=== PATIENT | male | born 1955 | race Caucasian/White ===

== ENCOUNTER 2021-04-11 01:57 | Inpatient (IN) ==
[2021-04-11] MEDS ORDERED: POLYETHYLENE (MIRALAX) 17 GM PACK PO PRN (04:52)
[2021-04-11] MEDS ORDERED: ACETAMINOPHEN 325 MG TAB PO PRN (04:52)
[2021-04-11] MEDS ORDERED: VANCOMYCIN CONSULT ACTIVE PRN (04:56)
--- NOTE | 2021-04-11 05:01 | History & Physical Report ---
Date of Service April 11, 2021 Assessment & Plan (1) Arthritis of knee, left: Plan: 66 yo M w/ pMHx. of gout, HLD, HTN, Anxiety, back pain, BPH, venous insufficiency and s/p left total knee in November with [facility] Left knee concerning for septic prosthetic joint on exam and labs gram positive cocci on OSH blood culture, elevated CRP, elevated WBC images being uploaded - ordered blood cultures - started on Vancomycin and Ceftriaxone - consulted orthopedics for potential surgical management - NPO at midnight - continuing home pain medications that include: Gabapentin, Baclofen - added PRN Tylenol and Oxycodone for pain Bacteremia + blood cultures, will recheck our blood cultures - ECHO ordered - abx. as above - discussed that he may need a prolonged course of IV abx. HTN - continue home BP medication Venous insufficiency lower extremity consistent with venous stasis ulcers - continue home Bumex Depression - continue home medications Back pain - continue home medication Hx. sleep apnea - not on CPAP BPH - continue home medications Gout - continue Allopurinol Code: full Diet: NPO after midnight for possible procedure DVT: SCDs (2) BPH (benign prostatic hyperplasia): (3) Anxiety: (4) Depression: (5) GERD (gastroesophageal reflux disease): (6) Hyperlipidemia: (7) Hypertension: (8) Sleep apnea: (9) Nonobstructive atherosclerosis of coronary artery: Admission and Anticipated Discharge Date Admission Date: April 11, 2021 History of Present Illness Chief Complaint: left knee pain Primary Care Provider: Chalo Anderson Harry Abdi is a 66-year-old male with a past medical history of gout, HLD, HTN, back pain, BPH, venous insufficiency and s/p left total knee in November with [facility] here for left knee pain and swelling. He was a direct admit from [facility]. He has had 2 days of left leg swelling and pain that is 9-10/10 and located behind the knee. The pain is constant in nature and worse with moving. He uses a cane to get around and a walker but has been having d ifficulty lately. Social Hx.: denies tobacco use, 1-2 drinks/week, no recreational drug use Allergies Allergy/AdvReac Type Severity Reaction Status Date / Time No Known Allergies Unverified 12/01/20 05:36 Home Medications Medication Instructions Recorded Confirmed Type allopurinol 300 mg tablet 300 mg PO QAM 10/26/20 04/11/21 History atorvastatin 20 mg tablet 20 mg PO DAILY 10/26/20 04/11/21 History baclofen 10 mg tablet 10 mg PO BID 10/26/20 04/11/21 History bumetanide 0.5 mg tablet 0.5 mg PO BID 10/26/20 04/11/21 History buspirone 30 mg tablet 30 mg PO BID 10/26/20 04/11/21 History duloxetine 60 mg capsule,delayed 60 mg PO BID 10/26/20 04/11/21 History release gabapentin 600 mg tablet,extended 600 mg PO BID 10/26/20 04/11/21 History release 24 hr levocetirizine 5 mg tablet 5 mg PO QPM 10/26/20 04/11/21 History lisinopril 5 mg tablet 5 mg PO QAM 10/26/20 04/11/21 History montelukast 10 mg tablet 10 mg PO DAILY 10/26/20 04/11/21 History pantoprazole 40 mg tablet,delayed 40 mg PO BID 10/26/20 04/11/21 History release (Protonix) primidone 50 mg tablet 50 mg PO DAILY 10/26/20 04/11/21 History propranolol 80 mg tablet 80 mg PO QAM 10/26/20 04/11/21 History tamsulosin 0.4 mg capsule 0.4 mg PO QAM 10/26/20 04/11/21 History topiramate 100 mg tablet 100 mg PO HS 10/26/20 04/11/21 History trazodone 100 mg tablet 100 mg PO HS 10/26/20 04/11/21 History cholecalciferol (vitamin D3) 125 125 mcg PO DAILY 04/11/21 04/11/21 History mcg (5,000 unit) tablet (Vitamin D3) Past Med/Surg History Medical History Anxiety BPH (benign prostatic hyperplasia) Chronic back pain Depression GERD (gastroesophageal reflux disease) Hx of bladder cancer 2018 had chemo in bladder and no problem since Hyperlipidemia Hypertension Nonobstructive atherosclerosis of coronary artery Per review of [facility] records, non-obstructive CAD by 2008 heart cath. Cardiac cath done 05/31/10 at [facility] for NSTEMI with chest pain following a back surgery done at [facility] (POD1). 2010 cath also showed nonobstructive CAD, ACS ruled out, medically managed for risk factor modification. Echo done 06/01/10 showed pre served EF 55-60%. NSTEMI (non-ST elevated myocardial infarction) 2009, POD1 after back surgery, transferred from [facility] to [facility] for cath. Cath nonobstructive. Osteoarthritis PONV (postoperative nausea and vomiting) Sleep apnea no device Surgical History History of arthroscopy of left knee History of cardiac cath [place] 2012, "mild." No stents. History of open reduction and internal fixation (ORIF) procedure right arm History of rotator cuff surgery Hx laparoscopic cholecystectomy Hx of arthroscopy of shoulder Hx of bilateral cataract extraction Hx of colonoscopy Hx of cystoscopy Hx of esophagogastroduodenoscopy Hx of fusion of cervical spine Hx of gastric bypass states gastric sleeve 2012 - lost 60'pema pounds Hx of tonsillectomy Social History Smoking Status: Never smoker Second Hand Exposure: No; Do You Dip or Chew Tobacco: No; Tobacco Cessation Education Requested by Patient: No Hx Alcohol Use: Yes Alcohol type: beer and wine Hx Substance Use: No Preferred Language: Telugu Communication Ability: Effective Data Modeling Architect Required: No Beliefs That Will Affect Care: None Current Living Situation: Family Other Information That Helps Us Care for You: No Feels Safe at Home: Yes Safety Concerns: Feels Safe At This Time Assistive Devices: Cane, Glasses and Walker Review of Systems Review of Systems: Constitutional: denies fevers, chills, nausea, vomiting, diaphoresis, night sweats, weight loss admits fatigue and general weakness Head: denies LOC, headaches, confusion, lightheadedness, vision changes Neurologic: denies slurring of speech, numbness, tingling ENT: denies rhinorrhea, stuffiness, sneezing, sore throat Cardiac: denies chest pain, palpitations, orthopnea admits leg swelling Pulm.: denies cough, shortness of breath Physical Exam Constitutional: WD/WN, vitals as above Eyes: PERRL, conjunctivae normal, anicteric sclerae ENMT: external ear and nose normal, oropharynx normal Neck: normal visual inspection Respiratory: normal respiratory effort, lungs clear to auscultation Cardiovascular: Rate/Rhythm: regular rate and regular rhythm Gastrointestinal (Abdomen): normal bowel sounds, soft, nontender, no hepatosplenomegaly Musculoskeletal: - Left knee with anterior post operative scar from total knee arthroplasty - Swollen, red and tender to palpation - limited ROM due to pain Skin: - lower extremity edema with darkening of skin bilaterally symmetric Neurologic: no focal motor deficits Psychiatric: A+Ox3, euthymic affect Results & Data Results & Data ([facility]) Vital Signs (Past 12 Hours) Vital Signs Temp Pulse Resp BP Pulse Ox 04/11/21 03:39 37.1 C 74 14 138/80 95 CBC Results Results Complete Blood Count Results: RBC 3.73 M/uL (4.7-6.1) L 04/11/21 WBC 13.90 K/uL (4.8-10.8) H 04/11/21 Hgb 11.7 g/dL (14.0-18.0) L 04/11/21 Hct 35.7 % (42-52) L 04/11/21 Plt Count 152 K/uL (130-400) 04/11/21 Chemistry (BMP) Results BMP Results: Sodium 132 mmol/L (136-145) L 04/11/21 Potassium 3.7 mmol/L (3.5-5.1) 04/11/21 Chloride 102 mmol/L (98-107) 04/11/21 BUN 24 mg/dl (7-18) H 04/11/21 Creatinine 0.96 mg/dl (0.6-1.4) 04/11/21 Glucose 103 mg/dl (70-99) H 04/11/21 Code Status & VTE Plan VTE Prophylaxis Plan VTE Prophylaxis will be ordered: Yes Supervising Physician Co-Signing Physician Notes Attending addendum: I have physically seen this patient, have supervised the medical residents activities, and agree with the H&P unless as otherwise noted. Assessment and Plan: Left total knee arthroplasty/question septic joint- Gram-positive cocci on OSH blood culture Empiric vancomycin IV and ceftriaxone IV Orthopedic surgery Dr. Painter is aware of patient N.p.o. after midnight except for essential medications IV fluids Follow blood cultures and sensitivities Order echocardiogram to assess for SBE Hypertension- Hold bumetanide and lisinopril Continue propranolol with hold parameters Depression- Continue home medications Remaining orders and notations as noted Resident Activity Tracking Resident Involvement: Resident Care Provided Care Provided: Adult Hospital Medicine
[2021-04-11] MEDS ORDERED: oxyCODONE HCL IR 5 MG TAB (IMMEDIATE RELEASE) PO PRN (05:23)
[2021-04-11] MEDS ORDERED: SODIUM CHLORIDE 0.9% 1000ML 1,000 ML IV SCH (05:30)
[2021-04-11 05:46] LABS: Hematocrit (blood only) 35.7 % (42-52); Hemoglobin 11.7 g/dL (14.0-18.0); Mean Corpuscular Hemoglobin 31.4 pg (25-34); Mean Corpuscular Hgb Conc 32.8 g/dL (32-36); Mean Corpuscular Volume 95.7 fL (80-100); Mean Platelet Volume 11.1 fL (7.4-10.4); Platelet Count 152 K/uL (130-400); RDW Coefficient of Variation 15.5 % (11.5-14.5); RDW Standard Deviation 53.7 fL (36.4-46.3); Red Blood Count 3.73 M/uL (4.7-6.1)
[2021-04-11] MEDS: cefTRIAXone SODIUM 2,000 MG in DEXTROSE 5% 50 ML IV SCH (06:06)
[2021-04-11 06:08] LABS: Basophils # (auto) 0.02 K/uL (0-0.2); Basophils % (auto) 0.1 %; Eosinophils # (auto) 0.01 K/uL (0-0.5); Eosinophils % (auto) 0.1 %; Immature Granulocytes # (auto) 0.04 K/uL (0.00-0.02); Immature Granulocytes % (auto) 0.3 %; Monocytes # (auto) 1.43 K/uL (0.11-0.59); Monocytes % (auto) 10.3 %; Neutrophils % (auto) 84.2 %
[2021-04-11 06:15] LABS: Est GFR (African American) 95.8 ml/min; Est GFR (Non-African American) 82.6 ml/min; Potassium 3.7 mmol/L (3.5-5.1)
[2021-04-11 06:16] LABS: Albumin Level 3.1 gm/dl (3.4-5.0); BUN Creatinine Ratio 25.1 (10-20); Calcium 9.1 mg/dl (8.5-10.1); Creatinine Clr Calc Pharmacy 105.6 ml/min
[2021-04-11 06:18] LABS: Albumin Globulin Ratio 0.7 (0.9-2); Bilirubin,Total 2.6 mg/dl (0.2-1); Globulin 4.3 gm/dl (2.5-4.0); Total Protein 7.4 gm/dl (6.4-8.2)
[2021-04-11] MEDS ORDERED: VANCOMYCIN HCL 2,500 MG in SODIUM CHLORIDE 0.9% 500 ML IV STA (06:37)
--- NOTE | 2021-04-11 06:47 | Pharmacy Report ---
Pharmacy Vanc AUC Short Note - Date of Service April 11, 2021 - Assessment & Plan Assessment 66 year old M receiving Vancomycin and Ceftriaxone for treatment of possible bone and joint infection versus cellulitis. * Transferred from [facility]. He is s/p L TKA in November 2020. Reports 2 days of left leg swelling and pain located behind the knee. * Unknown if patient was on abx prior to admit. He thinks he was. Random Vancomycin level ordered and undetectable. Reported that cultures from [facility] were growing GPCs in the blood. * Afebrile. Leukocytosis of 13.9k. Plan Vancomycin * Loading Dose: 2500 mg IV x 1 * Maintenance Dose: 1500 mg IV every 12 hours * AUC/SELVIN is the preferred PK/PD target for vancomycin * AUC guided dosing is effective and associated with decreased risk of nephrotoxicity compared to traditional trough targets * AUC/SELVIN goal of 400 to 600 mg/L.hr * Trough level ordered for 04/13/21 prior to 0600 dose to assess AUC/SELVIN Ceftriaxone * Not a pharmacy consult * 2000 mg IV every 24 hours Pharmacy will continue to follow and will adjust dose/frequency as necessary. Thank you.
[2021-04-11] MEDS: BACLOFEN 10 MG TAB PO SCH ×2 (08:36→20:54)
[2021-04-11] MEDS: BUMETANIDE 1 MG TAB PO SCH ×2 (08:36→20:54)
[2021-04-11] MEDS: ATORVASTATIN 20 MG TAB PO SCH (08:36)
[2021-04-11] MEDS: allopurinoL 300 MG TAB PO SCH (08:36)
[2021-04-11] MEDS: MONTELUKAST SODIUM 10 MG TABLET PO SCH (08:37)
[2021-04-11] MEDS: busPIRone 15 MG TAB PO SCH ×2 (08:37→20:54)
[2021-04-11] MEDS: DULoxetine HCL 60 MG CAP PO SCH ×2 (08:37→20:53)
[2021-04-11] MEDS: PRIMIDONE 50 MG TAB PO SCH (08:37)
[2021-04-11] MEDS: PROPRANOLOL HCL 80 MG TAB PO SCH (08:37)
[2021-04-11] MEDS: PANTOprazole 40 MG TAB PO SCH ×2 (08:37→20:54)
[2021-04-11] MEDS: lisinopril 5 MG TAB PO SCH (08:37)
[2021-04-11] MEDS: TAMSULOSIN HCL 0.4 MG CAP PO SCH (08:37)
--- NOTE | 2021-04-11 10:39 | Hospitalist Progress Note ---
Date of Service April 11, 2021 Assessment & Plan (1) Arthritis of knee, left: Plan: Harry Abdi is a 66 yo male with PMHx of gout, HLD, HTN, Anxiety, back pain, BPH, venous insufficiency and s/p left total knee in November 2020 with [facility], who was a direct admission from [facility] on 04/11 for concern of septic arthritis. Gram Positive Bacteremia due to Possible Septic Arthritis S/s septic arthritis although without arthrocentesis as of yet, WBC/CRP/ESR elevated, OSH blood cx positive for GPC in clusters (2/2 samples). Received Ancef IV x1 in OSH. - OSH images sent via disc - CT knee showing joint effusion - Ortho consulted (Dr. Painter, who performed left TKA) - appreciate recs - arthrocentesis done today with 47,970 WBC in yellow synovial fluid, gram stain/cx pending - NPO at midnight for possible I&D with poly exchange tomorrow - repeat blood cultures taken on admission - pending - TTE with EF 55-60% and mild MR/TR but no signs of vegetations/endocarditis - started on Vanco/Ceftriaxone upon arrival; will continue both for now - will call [facility] tomorrow to check on speciation/sensitivities and will adjust abx as necessary - continuing home pain medications that include: Gabapentin, Baclofen - continue PRN Tylenol and Oxycodone Direct Hyperbilirubinemia TBili 2.6 and DBili 1.0 but liver enzymes unremarkable. - RUQ US with hepatomegaly and findings c/w cirrhosis. Hepatitis panel ordered - pending - repeat CMP in the AM - will need to eval risks (both social hx and metabolic) and have close outpatient follow up HTN - continue home BP meds Venous insufficiency - continue home Bumex Depression - continue home meds Back pain - continue home meds HUMBERTO - not on home CPAP - consideration of CPAP, will defer to PCP BPH - continue home meds Gout - continue Allopurinol Code: FULL CODE FEN/GI: NPO at midnight for possible I&D DVT ppx: SCDs Dispo: med/surg (2) BPH (benign prostatic hyperplasia): (3) Anxiety: (4) Depression: (5) GERD (gastroesophageal reflux disease): (6) Hyperlipidemia: (7) Hypertension: (8) Sleep apnea: (9) Nonobstructive atherosclerosis of coronary artery: Admission and Anticipated Discharge Date Admission Date: April 11, 2021 Supervising Physician Co-Signing Physician Notes I personally examined the patient and verified all ludwig points of history and exam, discussed case, and agree with decision making with Dr Bryant Discussed findings. No new complaints. Patient asked questions about joint inflammation. I answered to the best my ability. Tried outlined overall plan of care with patient. Vitals noted, in general he is awake and alert pleasant no distress. HEENT normocephalic atraumatic mucous membranes moist. Breathing unlabored no accessory muscle use good effort. Skin shows no rashes no pallor or icterus. No focal neuro deficits. Gram-positive bacteremia/septic jointcontinue antibiotics. Anticipate joint washout. Secondary bacteremia work-up to rule out endocarditis etc. underway. Strongly consider infectious disease consult if questions about TONYA, etc. Continue supportive care. Probable cirrhosiseval risks, secondary risk reduction. Follow. Subjective No acute events since being admitted early this morning. Reports acute onset of left knee swelling and tenderness 4 days ago. Pain has worsened since then, the knee has become warm and he started to feel generally ill with subjective fever/chills over the last 2 days. Denies skin redness, cuts/lacerations, or discharge from knee. Reports that he was given an antibiotic at [facility] but no arthrocentesis was done. He reports that pain is controlled with PRN antibiotics and he has no other complaints currently. Review of Systems Review of Systems: All systems reviewed & are unremarkable except as noted in Subjective Physical Exam Physical Exam: General: A&Ox3. NAD. Cooperative. HEENT: Atraumatic, normocephalic. Pulm: CTAB A&P. -wheezes, -rales, -rhonchi. Symmetrical chest rise. No increase work of breathing. No respiratory distress. Cardiac: RRR, -mrg. Radial pulses intact and symmetrical. Abdominal: soft, non-tender, non-distended, BS x 4 Left knee: generally edematous and larger than the right knee, without erythema or visible cuts/lacerations/discharge, with minimal tenderness on palpation of patella or joint lines. However it is notably warm. Results & Data Results & Data ([facility]) Vital Signs (Past 12 Hours) Vital Signs Temp Pulse Resp BP Pulse Ox 04/11/21 07:31 37 C 80 18 138/79 93 04/11/21 03:39 37.1 C 74 14 138/80 95 Resident Activity Tracking Resident Involvement: Resident Care Provided Care Provided: Adult Hospital Medicine
--- NOTE | 2021-04-11 11:26 | History & Physical Report ---
Date of Service April 11, 2021 Assessment & Plan (1) Effusion, left knee: Plan: Continue IV vancomycin and ceftriaxone. Under sterile technique, the left knee was aspirated with a 60 cc syringe and an 18-gauge needle. 60 cc of cloudy yellow fluid was aspirated from the knee. The aspirate was sent for Gram stain, anaerobic and aerobic cultures, cell count. I discussed the findings with the patient and also discussed surgical I&D with poly exchange. Dr. Painter will discuss the case with Dr. Villatoro, patient's surgeon for the original total knee arthroplasty. We will make him n.p.o. after midnight for possible OR tomorrow. (2) History of knee replacement procedure of left knee: (3) Infected prosthetic knee joint: Admission and Anticipated Discharge Date Admission Date: April 11, 2021 History of Present Illness Chief Complaint: Severe left knee pain Primary Care Provider: Chalo Anderson This is a patient who had left total knee arthroplasty done in November of this year. He had progressed well postoperatively. However, 3 days ago, he started having severe pain in the left knee. It difficulties with ambulation. He came to the emergency room last night and he was admitted for evaluation of the knee. States the knee has been warm painful with any motion or attempted ambulation. Allergies Allergy/AdvReac Type Severity Reaction Status Date / Time No Known Allergies Unverified 12/01/20 05:36 Home Medications Medication Instructions Recorded Confirmed Type allopurinol 300 mg tablet 300 mg PO QAM 10/26/20 04/11/21 History atorvastatin 20 mg tablet 20 mg PO DAILY 10/26/20 04/11/21 History baclofen 10 mg tablet 10 mg PO BID 10/26/20 04/11/21 History bumetanide 0.5 mg tablet 0.5 mg PO BID 10/26/20 04/11/21 History buspirone 30 mg tablet 30 mg PO BID 10/26/20 04/11/21 History duloxetine 60 mg capsule,delayed 60 mg PO BID 10/26/20 04/11/21 History release gabapentin 600 mg tablet,extended 600 mg PO BID 10/26/20 04/11/21 History release 24 hr levocetirizine 5 mg tablet 5 mg PO QPM 10/26/20 04/11/21 History lisinopril 5 mg tablet 5 mg PO QAM 10/26/20 04/11/21 History montelukast 10 mg tablet 10 mg PO DAILY 10/26/20 04/11/21 History pantoprazole 40 mg tablet,delayed 40 mg PO BID 10/26/20 04/11/21 History release (Protonix) primidone 50 mg tablet 50 mg PO DAILY 10/26/20 04/11/21 History propranolol 80 mg tablet 80 mg PO QAM 10/26/20 04/11/21 History tamsulosin 0.4 mg capsule 0.4 mg PO QAM 10/26/20 04/11/21 History topiramate 100 mg tablet 100 mg PO HS 10/26/20 04/11/21 History trazodone 100 mg tablet 100 mg PO HS 10/26/20 04/11/21 History cholecalciferol (vitamin D3) 125 125 mcg PO DAILY 04/11/21 04/11/21 History mcg (5,000 unit) tablet (Vitamin D3) Past Med/Surg History Medical History Anxiety BPH (benign prostatic hyperplasia) Chronic back pain Depression GERD (gastroesophageal reflux disease) Hx of bladder cancer 2018 had chemo in bladder and no problem since Hyperlipidemia Hypertension Nonobstructive atherosclerosis of coronary artery Per review of [facility] records, non-obstructive CAD by 2008 heart cath. Cardiac cath done 05/31/10 at [facility] for NSTEMI with chest pain following a back surgery done at [facility] (POD1). 2009 cath also showed nonobstructive CAD, ACS ruled out, medically managed for risk factor modification. Echo done 06/01/10 showed preserved EF 55-60%. NSTEMI (non-ST elevated myocardial infarction) 2009, POD1 after back surgery, transferred from [facility] to [facility] for cath. Cath nonobstructive. Osteoarthritis PONV (postoperative nausea and vomiting) Sleep apnea no device Surgical History History of arthroscopy of left knee History of cardiac cath [place] 2012, "mild." No stents. History of open reduction and internal fixation (ORIF) procedure right arm History of rotator cuff surgery Hx laparoscopic cholecystectomy Hx of arthroscopy of shoulder Hx of bilateral cataract extraction Hx of colonoscopy Hx of cystoscopy Hx of esophagogastroduodenoscopy Hx of fusion of cervical spine Hx of gastric bypass states gastric sleeve 2013 - lost 60'pema pounds Hx of tonsillectomy Social History Smoking Status: Never smoker Second Hand Exposure: No; Do You Dip or Chew Tobacco: No; Tobacco Cessation Education Requested by Patient: No Hx Alcohol Use: Yes Alcohol type: beer and wine Hx Substance Use: No Preferred Language: Indonesian Communication Ability: Effective Brinell Tester Required: No Beliefs That Will Affect Care: None Current Living Situation: Family Other Information That Helps Us Care for You: No Feels Safe at Home: Yes Safety Concerns: Feels Safe At This Time Assistive Devices: Cane, Glasses and Walker Physical Exam Constitutional: WD/WN, vitals as above + acute distress (Mildly acute distress secondary to left knee pain) ENMT: external ear and nose normal, oropharynx normal Neck: trachea midline Respiratory: normal respiratory effort, lungs clear to auscultation Cardiovascular: Rate/Rhythm: regular rate and regular rhythm Gastrointestinal (Abdomen): normal bowel sounds, soft, nontender, no hepatosplenomegaly Musculoskeletal: Knee: + effusion (Left knee: Right to severe), + surgical incision (Well-healed anterior left knee incision), + limited ROM of knee (Left knee secondary to pain) and + joint line tenderness (Moderate to severe warmth left knee); no skin erythema, no ecchymosis, no valgus alignment and no varus alignment Skin: no rashes, warm and dry + crusts (Lateral lower extremities with venous insufficiency skin changes) Neurologic: normal touch/pain/proprioception Psychiatric: A+Ox3, euthymic affect Speech: normal rate/rhythm/volume of speech Results & Data Results & Data ([facility]) Vital Signs (Past 12 Hours) Vital Signs Temp Pulse Resp BP Pulse Ox 04/11/21 07:31 37 C 80 18 138/79 93 04/11/21 03:39 37.1 C 74 14 138/80 95 Laboratory Results Laboratory Tests 04/11/21 04/11/21 05:28 05:28 WBC 13.90 H Hgb 11.7 L Hct 35.7 L Neut # (Auto) 11.70 H Sodium 132 L BUN 24 H Creatinine 0.96 Code Status & VTE Plan VTE Prophylaxis Plan VTE Prophylaxis will be ordered: Yes
[2021-04-11 12:01] LABS: Appearance Synovial Fluid CLOUDY; Color Synovial Fluid YELLOW; Mononuclear WBC Synovial 11.3 %; Polynuclear WBC Synovial 88.7 %; RBC Synovial Fluid (A) 10000 /uL; Source Synovial Fluid KNEE; WBC Synovial Fluid (A) 47970 /ul (0-200)
--- NOTE | 2021-04-11 12:41 | XCELERA ---
[id number]
--- NOTE | 2021-04-11 15:08 | Ultrasound Report ---
US liver CLINICAL HISTORY: 66 years-old Male presenting with direct hyperbilirunemia. TECHNIQUE: Real-time grayscale ultrasound imaging of the upper abdomen was performed for a focused ev aluation at the site of clinical concern. COMPARISON: None. FINDINGS: Liver is slightly enlarged measuring 18.8 cm in length, shows normal parenchymal echogenicity and sli ghtly lobulated contour which might be seen in liver cirrhosis. No definite focal liver lesions or in trahepatic biliary dilatation is seen. Gallbladder is surgically absent. Common bile duct is measuring 0.4 cm in diameter. Visualized portion of the pancreas shows no evidence of focal lesions. Pancreatic tail is obscured by overlying bowel gas. Visualized portion of the right kidney shows no evidence of hydronephrosis. IMPRESSION: 1. Hepatomegaly. Possible liver cirrhosis. ACT 112: Negative or not required by law. Electronically signed by: Elvira Gifford DO 04/11/2021 3:07 PM
--- NOTE | 2021-04-11 17:54 | Billing Data ---
Date of Service April 11, 2021 Coding Level of Care Code 21337 Subseq Hosp Care Lvl 2
[2021-04-11] MEDS: VANCOMYCIN HCL 1,500 MG in SODIUM CHLORIDE 0.9% 500 ML IV SCH (18:14)
--- NOTE | 2021-04-11 19:39 | Billing Data ---
Date of Service April 11, 2021 Coding Level of Care Code 65150 Initial Inpt Care Lvl 3
[2021-04-11] MEDS: traZODone HCL 100 MG TAB PO SCH (20:53)
[2021-04-11] MEDS: TOPIRAMATE 100 MG TAB PO SCH (20:54)
[2021-04-12 05:21] LABS: Hematocrit (blood only) 32.7 % (42-52); Hemoglobin 10.9 g/dL (14.0-18.0); Mean Corpuscular Hemoglobin 31.3 pg (25-34); Mean Corpuscular Hgb Conc 33.3 g/dL (32-36); Mean Platelet Volume 10.6 fL (7.4-10.4); Platelet Count 156 K/uL (130-400); RDW Coefficient of Variation 15.3 % (11.5-14.5); RDW Standard Deviation 51.9 fL (36.4-46.3); Red Blood Count 3.48 M/uL (4.7-6.1); White Blood Count 11.08 K/uL (4.8-10.8)
[2021-04-12] MEDS: cefTRIAXone SODIUM 2,000 MG in DEXTROSE 5% 50 ML IV SCH (05:25)
[2021-04-12] MEDS: VANCOMYCIN HCL 1,500 MG in SODIUM CHLORIDE 0.9% 500 ML IV SCH (05:55)
[2021-04-12 05:57] LABS: Albumin Level 2.7 gm/dl (3.4-5.0); Bilirubin Direct 0.7 mg/dl (0-0.2); Calcium 8.5 mg/dl (8.5-10.1); Creatinine Clr Calc Pharmacy 119.3 ml/min; Est GFR (Non-African American) 91.4 ml/min; Magnesium 1.9 mg/dl (1.8-2.4); Potassium 3.2 mmol/L (3.5-5.1)
[2021-04-12 06:03] LABS: Bilirubin,Total 1.6 mg/dl (0.2-1); Phosphorus 2.9 mg/dl (2.5-4.9); Total Protein 6.8 gm/dl (6.4-8.2)
[2021-04-12 06:11] LABS: Basophils # (auto) 0.02 K/uL (0-0.2); Basophils % (auto) 0.2 %; Eosinophils # (auto) 0.02 K/uL (0-0.5); Eosinophils % (auto) 0.2 %; Immature Granulocytes # (auto) 0.02 K/uL (0.00-0.02); Immature Granulocytes % (auto) 0.2 %; Lymphocytes # (auto) 0.94 K/uL (1.2-3.4); Lymphocytes % (auto) 8.5 %; Monocytes # (auto) 1.58 K/uL (0.11-0.59); Monocytes % (auto) 14.3 %; Neutrophils % (auto) 76.6 %; RBC Morphology Unremarkable
--- NOTE | 2021-04-12 07:14 | Anesthesiology Consultation ---
Date of Service April 12, 2021 Assessment & Plan (1) Encounter for pre-operative examination: Chart Review Chart Review: Acceptable Risk for Surgery and Patient NOT seen in Pre Admission Testing Patient is hypokalemic, receiving KCL riders. Will order preop covid screen. Consults Requested none History Surgery Operation Date: 04/12/21 07:00 Proposed Procedures p Left Knee Incision and Drainage - Anand Villatoro DO s Poly Exchange - Anand Villatoro DO Height/Weight Height: 6 ft 2 in Weight: 120 kg Allergies Allergy/AdvReac Type Severity Reaction Status Date / Time No Known Allergies Unverified 12/01/20 05:36 Medications Home Medications Medication Instructions Recorded Confirmed Last Taken allopurinol 300 mg tablet 300 mg PO QAM 10/26/20 04/11/21 1 Day Ago ~04/10/21 atorvastatin 20 mg tablet 20 mg PO DAILY 10/26/20 04/11/21 1 Day Ago ~04/10/21 baclofen 10 mg tablet 10 mg PO BID 10/26/20 04/11/21 1 Day Ago ~04/10/21 bumetanide 0.5 mg tablet 0.5 mg PO BID 10/26/20 04/11/21 1 Day Ago ~04/10/21 buspirone 30 mg tablet 30 mg PO BID 10/26/20 04/11/21 1 Day Ago ~04/10/21 duloxetine 60 mg capsule,delayed 60 mg PO BID 10/26/20 04/11/21 2 Days Ago release ~04/09/21 gabapentin 600 mg tablet,extended 600 mg PO BID 10/26/20 04/11/21 1 Day Ago release 24 hr ~04/10/21 levocetirizine 5 mg tablet 5 mg PO QPM 10/26/20 04/11/21 2 Days Ago ~04/09/21 lisinopril 5 mg tablet 5 mg PO QAM 10/26/20 04/11/21 1 Day Ago ~04/10/21 montelukast 10 mg tablet 10 mg PO DAILY 10/26/20 04/11/21 1 Day Ago ~04/10/21 pantoprazole 40 mg tablet,delayed 40 mg PO BID 10/26/20 04/11/21 1 Day Ago release (Protonix) ~04/10/21 primidone 50 mg tablet 50 mg PO DAILY 10/26/20 04/11/21 1 Day Ago ~04/10/21 propranolol 80 mg tablet 80 mg PO QAM 10/26/20 04/11/21 1 Day Ago ~04/10/21 tamsulosin 0.4 mg capsule 0.4 mg PO QAM 10/26/20 04/11/21 1 Day Ago ~04/10/21 topiramate 100 mg tablet 100 mg PO HS 10/26/20 04/11/21 2 Days Ago ~04/09/21 trazodone 100 mg tablet 100 mg PO HS 10/26/20 04/11/21 2 Days Ago ~04/09/21 cholecalciferol (vitamin D3) 125 125 mcg PO DAILY 04/11/21 04/11/21 1 Day Ago mcg (5,000 unit) tablet (Vitamin ~04/10/21 D3) Active Medications Generic Name Dose Route Start Last Admin Trade Name Freq PRN Reason Stop Dose Admin Allopurinol 300 mg 04/11/21 09:00 04/11/21 08:36 Allopurinol 300 Mg Tab PO 05/11/21 08:59 300 mg QAM VÍCTOR Administration Atorvastatin Calcium 20 mg 04/11/21 09:00 04/11/21 08:36 Atorvastatin 20 Mg Tab PO 05/11/21 08:59 20 mg DAILY VÍCTOR Administration Baclofen 10 mg 04/11/21 09:00 04/11/21 20:54 Baclofen 10 Mg Tab PO 05/11/21 08:59 10 mg BID VÍCTOR Administration Bumetanide 0.5 mg 04/11/21 09:00 04/11/21 20:54 Bumetanide 1 Mg Tab PO 05/11/21 08:59 0.5 mg BID VÍCTOR Administration Buspirone HCl 30 mg 04/11/21 09:00 04/11/21 20:54 Buspirone 15 Mg Tab PO 05/11/21 08:59 30 mg BID VÍCTOR Administration Duloxetine HCl 60 mg 04/11/21 09:00 04/11/21 20:53 Duloxetine Hcl 60 Mg Cap PO 05/11/21 08:59 60 mg BID VÍCTOR Administration Vancomycin HCl 1,500 mg/ 530 mls @ 200 mls/hr 04/11/21 18:00 04/12/21 05:55 Sodium Chloride IV 05/23/21 17:59 200 mls/hr Q12H VÍCTOR Administration Protocol Ceftriaxone Sodium 2,000 mg/ 70 mls @ 140 mls/hr 04/11/21 06:00 04/12/21 05:56 Dextrose IV 04/25/21 05:59 Infused Q24H VÍCTOR Infusion Protocol Lisinopril 5 mg 04/11/21 09:00 04/11/21 08:37 Lisinopril 5 Mg Tab PO 05/11/21 08:59 5 mg QAM VÍCTOR Administration Montelukast Sodium 10 mg 04/11/21 09:00 04/11/21 08:37 Montelukast Sodium 10 Mg Tablet PO 05/11/21 08:59 10 mg DAILY VÍCTOR Administration Pantoprazole Sodium 40 mg 04/11/21 09:00 04/11/21 20:54 Pantoprazole 40 Mg Tab PO 05/11/21 08:59 40 mg BID VÍCTOR Administration Primidone 50 mg 04/11/21 09:00 04/11/21 08:37 Primidone 50 Mg Tab PO 05/11/21 08:59 50 mg DAILY VÍCTOR Administration Propranolol HCl 80 mg 04/11/21 09:00 04/11/21 08:37 Propranolol Hcl 80 Mg Tab PO 05/11/21 08:59 80 mg QAM VÍCTOR Administration Tamsulosin HCl 0.4 mg 04/11/21 09:00 04/11/21 08:37 Tamsulosin Hcl 0.4 Mg Cap PO 05/11/21 08:59 0.4 mg QAM VÍCTOR Administration Topiramate 100 mg 04/11/21 21:00 04/11/21 20:54 Topiramate 100 Mg Tab PO 05/11/21 20:59 100 mg HS VÍCTOR Administration Trazodone HCl 100 mg 04/11/21 21:00 04/11/21 20:53 Trazodone Hcl 100 Mg Tab PO 05/11/21 20:59 100 mg HS VÍCTOR Administration Past Medical History Medical History Anxiety BPH (benign prostatic hyperplasia) Chronic back pain Depression GERD (gastroesophageal reflux disease) Hx of bladder cancer 2018 had chemo in bladder and no problem since Hyperlipidemia Hypertension Nonobstructive atherosclerosis of coronary artery Per review of [facility] records, non-obstructive CAD by 2009 heart cath. Cardiac cath done 05/31/10 at [facility] for NSTEMI with chest pain following a back surgery done at [facility] (POD1). 2010 cath also showed nonobstructive CAD, ACS ruled out, medically managed for risk factor modification. Echo done 06/01/10 showed preserved EF 55-60%. NSTEMI (non-ST elevated myocardial infarction) 2009, POD1 after back surgery, transferred from [facility] to [facility] for cath. Cath nonobstructive. Osteoarthritis PONV (postoperative nausea and vomiting) Sleep apnea no device Past Surgical History Surgical History History of arthroscopy of left knee History of cardiac cath [place] 2012, "mild." No stents. History of open reduction and internal fixation (ORIF) procedure right arm History of rotator cuff surgery Hx laparoscopic cholecystectomy Hx of arthroscopy of shoulder Hx of bilateral cataract extraction Hx of colonoscopy Hx of cystoscopy Hx of esophagogastroduodenoscopy Hx of fusion of cervical spine Hx of gastric bypass states gastric sleeve 2012 - lost 60'pema pounds Hx of tonsillectomy Left TKA 12/01/20: SAB with adductor and IPACK blocks and sedation (OUTPATIENT JOINT). Social History Smoking Status: Never smoker Do You Dip or Chew Tobacco: No Hx Alcohol Use: Yes Alcohol type: beer and wine alcohol intake frequency: a few times a month Hx Substance Use: No Physical Exam Vital Signs Last Vital Signs Temp 36.6 C 04/11/21 22:24 Pulse 66 04/11/21 22:24 Resp 16 04/11/21 22:24 BP 121/78 04/11/21 22:24 Pulse Ox 95 04/11/21 22:24 Testing Laboratory Results 04/12/21 05:15 04/12/21 05:15 04/11/21 05:36 Aerobic Blood Culture - Preliminary Blood Gram positive cocci clusters Anaerobic Blood Culture - Preliminary Gram positive cocci clusters 04/11/21 05:28 Aerobic Blood Culture - Preliminary Blood Gram positive cocci clusters Anaerobic Blood Culture - Preliminary Gram positive cocci clusters 04/11/21 11:11 Gram Stain - Final Joint Fluid,Knee Echocardiogram Date: 04/11/21 EF: 55-60% Echo done 04/11/21 for bacteremia LV systolic function is normal No RWMA Borderline LVH Mild MR and TR. Other Testing Electrocardiogram Date: 04/27/20 Findings: + NSR @ (65bpm) Chest X-Ray Date: 11/02/20 Findings: + NAD FINDINGS: No pneumothorax. No pleural effusions. The heart is top normal in size. Mild diffuse interstitial thickening which is likely chronic. Symmetric nodular densities within the lung bases favor nipple shadows. No new focal lung consolidations to suggest pneumonia. No evidence for pulmonary edema. Cervical spinal fusion hardware is noted. Partially visualized lumbar spinal fusion hardware.
--- NOTE | 2021-04-12 08:10 | Hospitalist Progress Note ---
Date of Service April 12, 2021 Assessment & Plan (1) Arthritis of knee, left: Plan: Harry Abdi is a 66 yo male with PMHx of gout, HLD, HTN, Anxiety, back pain, BPH, venous insufficiency and s/p left total knee in November 2020 with [facility], who was a direct admission from [facility] on 04/11 for concern of septic arthritis. Gram Positive Bacteremia due to Possible Septic Arthritis S/s septic arthritis although without arthrocentesis as of yet, WBC/CRP/ESR elevated, OSH blood cx positive for GPC in clusters (2/2 samples). Received Ancef IV x1 in OSH. - OSH images sent via disc - CT knee showing joint effusion - TTE with EF 55-60% and mild MR/TR but no signs of vegetations/endocarditis -Per phone conversation with [facility] lab, patient has 2 blood cultures preliminarily growing MSSA with sensitivities pending they will fax over results once available - repeat blood cultures taken on admission here growing MSSA, sensitivities pending - Ortho consulted (Dr. Painter, who performed left TKA) - appreciate recs - arthrocentesis done 04/11 with 47,970 WBC in yellow synovial fluid Gram stain with few gram-positive cocci, culture preliminary showing Staphylococcus species with sensitivities to follow - I&D and poly exchange performed today and left knee specimen sent with gram stain/Cx pending - Continue ceftriaxone 2 g IV daily, will stop vancomycin today as all blood cultures growing MSSA and thus unlikely that knee cultures will show MRSA - continuing home pain medications that include: Gabapentin, Baclofen - continue PRN Tylenol and Oxycodone Direct Hyperbilirubinemia T. Bili and D. Bili downtrending today, liver enzymes remain normal - RUQ US with Hepatomegaly. Possible liver cirrhosis. - Hepatitis panel negative for Hep C, HBsAg negative, Hep B core IgM Ab pending, Hep A IgM Ab pending - repeat CMP in the AM HTN - continue home BP meds Venous insufficiency - continue home Bumex Depression - continue home meds Back pain - continue home meds HUMBERTO - not on home CPAP - consideration of CPAP, will defer to PCP BPH - continue home meds Gout - continue Allopurinol Code: FULL CODE FEN/GI: NPO at midnight for possible I&D DVT ppx: SCDs Dispo: med/surg (2) BPH (benign prostatic hyperplasia): (3) Anxiety: (4) Depression: (5) GERD (gastroesophageal reflux disease): (6) Hyperlipidemia: (7) Hypertension: (8) Sleep apnea: (9) Nonobstructive atherosclerosis of coronary artery: Admission and Anticipated Discharge Date Admission Date: April 11, 2021 Supervising Physician Co-Signing Physician Notes Resident Physician Supervision Note: I independently interviewed and examined the patient and verified the ludwig hi story and physical, reviewed labs and image studies and agree with resident Dr. Lerner findings and care plan. Subjective No acute events overnight. Patient reported feeling overall well this AM. He was updated with plan for I&D. No other complaints or concerns. Review of Systems Review of Systems: Denies CP, palp, SOB, cough, n/v, abd pain, diarrhea, fever, chills. Physical Exam Physical Exam: General: A&Ox3. NAD. Cooperative. HEENT: Atraumatic, normocephalic. Pulm: CTAB A&P. -wheezes, -rales, -rhonchi. Symmetrical chest rise. No increase work of breathing. No respiratory distress. Cardiac: RRR, -mrg. Radial pulses intact and symmetrical. Abdominal: soft, non-tender, non-distended, BS x 4 Left knee: generally edematous and larger than the right knee, without erythema or visible cuts/lacerations/discharge, with minimal tenderness on palpation of patella or joint line. Warm to touch. Results & Data Results & Data ([facility]) Vital Signs (Past 12 Hours) Vital Signs Temp Pulse Resp BP Pulse Ox 04/12/21 07:30 36.8 C 69 16 120/75 96 04/11/21 22:24 36.6 C 66 16 121/78 95 Resident Activity Tracking Resident Involvement: Resident Care Provided Care Provided: Adult Hospital Medicine
--- NOTE | 2021-04-12 08:20 | Orthopedic Progress Note ---
Date of Service April 12, 2021 Assessment & Plan (1) Infected prosthetic knee joint: Admission and Anticipated Discharge Date Admission Date: April 11, 2021 Results & Data ([facility]) Vital Signs (Past 12 Hours) Vital Signs Temp Pulse Resp BP Pulse Ox 04/12/21 07:30 36.8 C 69 16 120/75 96 04/11/21 22:24 36.6 C 66 16 121/78 95
--- NOTE | 2021-04-12 08:27 | Orthopedic Progress Note ---
Date of Service April 12, 2021 Assessment & Plan (1) Infected prosthetic knee joint: Plan: Infected left TKA. Left knee aspiration showing gram-positive cocci. Positive blood cultures. Case discussed with Dr. Villatoro. Planning for open irrigation and debridement and polyethylene bearing change. Possible use of stimulan antibiotic beads. I discussed this with the patient. All questions answered to the best of my ability. Plan for OR today. Admission and Anticipated Discharge Date Admission Date: April 11, 2021 Subjective Hospital day 1 Patient sleeping upon entering the room. Easily awoken. States he is still not feeling well overall and that his knee is still bothering him. No other complaints at this time. Denies shortness of breath, chest pain, lightheadedness. Discussed with patient about plans for surgery today. Physical Exam Physical Exam: Left knee has a well-healed incision noted from previous surgery. The knee does have an effusion and is hot to the touch compared to the right. Discomfort with range of motion. Calves are soft nontender. Neurovascular is intact. Toes are mobile. Results & Data ([facility]) Vital Signs (Past 12 Hours) Vital Signs Temp Pulse Resp BP Pulse Ox 04/12/21 07:30 36.8 C 69 16 120/75 96 04/11/21 22:24 36.6 C 66 16 121/78 95
[2021-04-12] MEDS: POTASSIUM CHLORIDE / WTR 10 MEQ/100 ML PLCT IV SCH ×4 (08:42→12:35)
[2021-04-12 09:11] LABS: Hepatitis B Surf Ag Rflx Conf Neg (Neg)
[2021-04-12] MEDS: lisinopril 5 MG TAB PO SCH (09:26)
[2021-04-12] MEDS: PROPRANOLOL HCL 80 MG TAB PO SCH (09:26)
[2021-04-12 09:39] LABS: Hepatitis C IgG 13Yrs+Old_Rflx Neg (Neg)
[2021-04-12] MEDS: PRIMIDONE 50 MG TAB PO SCH (09:41)
[2021-04-12] MEDS: BUMETANIDE 1 MG TAB PO SCH ×2 (09:53→21:22)
[2021-04-12] MEDS: ATORVASTATIN 20 MG TAB PO SCH (09:53)
[2021-04-12] MEDS: BACLOFEN 10 MG TAB PO SCH ×2 (09:53→21:22)
[2021-04-12] MEDS: allopurinoL 300 MG TAB PO SCH (09:53)
[2021-04-12] MEDS: DULoxetine HCL 60 MG CAP PO SCH ×2 (09:54→21:23)
[2021-04-12] MEDS: TAMSULOSIN HCL 0.4 MG CAP PO SCH (09:54)
[2021-04-12] MEDS: PANTOprazole 40 MG TAB PO SCH ×2 (09:54→21:23)
[2021-04-12] MEDS: MONTELUKAST SODIUM 10 MG TABLET PO SCH (09:54)
[2021-04-12] MEDS: GABAPENTIN 300 MG CAP PO SCH ×3 (09:54→21:23)
[2021-04-12] MEDS: busPIRone 15 MG TAB PO SCH ×2 (09:54→21:22)
[2021-04-12] MEDS ORDERED: ONDANSETRON INJ 2 MG/ML 2 ML VIAL ONE (11:21)
[2021-04-12] MEDS ORDERED: DEXAMETHASONE SOD INJ 4 MG/ML VIAL ONE (11:21)
[2021-04-12] MEDS ORDERED: PROPOFOL IV EMULSION 10 MG/ML 20 ML VIAL IV ONE (11:21)
[2021-04-12] MEDS ORDERED: fentaNYL citrate 100 MCG/2 ML VIAL ONE ×2 (11:21→12:45)
[2021-04-12] MEDS ORDERED: LIDOCAINE 2% 2 ML VIAL/AMP(20MG/ML) INFIL ONE (11:21)
[2021-04-12] MEDS ORDERED: MIDAZOLAM HCL 1 MG/ML 2ML VIAL ONE (11:22)
--- NOTE | 2021-04-12 11:55 | History & Physical Bridge Note ---
Date of Service April 12, 2021 History & Physical Bridge Note I have examined the patient, reviewed the History & Physical and in the interval since the performance of the History & Physical I have noted the following changes of clinical significance: no changes noted
[2021-04-12] MEDS ORDERED: GENTAMICIN SULFATE 40 MG/ML 2 ML VIAL ONE (11:58)
[2021-04-12] MEDS ORDERED: VANCOMYCIN HCL 1000MG/20ML VIAL ONE (11:58)
[2021-04-12] MEDS ORDERED: LACTATED RINGER'S 1,000 ML IV SCH (12:15)
[2021-04-12] MEDS ORDERED: ePHEDrine sulfate 50 MG/ML AMP IV PRN (12:16)
[2021-04-12] MEDS ORDERED: ATROPINE SULFATE 0.1 MG/ML 10ML SYR IV PRN (12:16)
[2021-04-12] MEDS ORDERED: LABETALOL HCL IV 5 MG/ML 20ML IV PRN (12:16)
[2021-04-12] MEDS ORDERED: ONDANSETRON INJ 2 MG/ML 2 ML VIAL IV PRN ×2 (12:16→15:38)
[2021-04-12] MEDS ORDERED: NALOXONE HCL 0.4 MG/1 ML VIAL/CARP IV PRN (12:16)
[2021-04-12] MEDS ORDERED: PROMETHAZINE HCL 12.5 MG in SODIUM CHLORIDE 0.9% 50 ML IV PRN (12:16)
[2021-04-12] MEDS ORDERED: fentaNYL citrate 100 MCG/2 ML VIAL IV PRN (12:16)
[2021-04-12] MEDS ORDERED: FLUMAZENIL 0.1 MG/1 ML 10 ML VIAL IV PRN (12:16)
[2021-04-12] MEDS ORDERED: KETAMINE 50 MG/5 ML SYRINGE ONE (12:29)
[2021-04-12] MEDS ORDERED: ACETAMINOPHEN 1000 MG/100 ML IV IV ONE (13:03)
--- NOTE | 2021-04-12 13:37 | Operative Report ---
Post Operative Report Pre & Post Diagnosis Operation Date: 04/12/21 07:00 Pre-Op Diagnosis: SEPTIC ARTHRITIS Post-Op Diagnosis: SEPTIC ARTHRITIS left knee status post total knee arthroplasty I identified the patient and participated in the time-out.: Yes Procedure Operation Date: 04/12/21 07:00 Actual Procedures p Left Knee Incision and Drainage(Left) - DO maximus Henson Poly Exchange(Left) utilizing size 10 polymedial constrained- Anand Villatoro DO Surgeon Anand Villatoro DO Manager Quality Brayan BILLINGSLEY Estimated Blood Loss 10 Findings Consistent with Post-Op Diagnosis Patient presents after having undergone total knee arthroplasty left knee in November was seen in the office 2 weeks ago was doing remarkably well was pain-free no effusion last developed the sudden onset of swelling and pain in his knee with was seen in the emergency room had positive blood cultures consistent with staph large gram-positive cocci swollen knee that was aspirated yesterday seropurulent material which developed since denies any other particular history of pain or other injury or trauma to his knee he did have a fall early on postoperatively and had abrasion involving his right knee his left knee was otherwise unremarkable examination in the office no sign of anything infectious or otherwise Specimens Knee joint culture tissue culture synovium Drains Medium bore Hemovac Anesthesia Type General Complications none Disposition Accompanied Patient To Recovery: No Disposition: Recovery Room Indications Patient presents with seropurulent aspirate from the knee less than yesterday with positive blood cultures were consistent with gram-positive cocci with a sudden onset of pain and swelling developing on of last week Description of Procedure Initiation of general anesthesia left lower extremity socially prepped and draped incision made in the region of the previous incision after dissecting down to the region of the prepatellar bursa there was michael purulent material within the prepatellar bursa which there is a 2 cm gap in the medial retinacular repair communicating with the knee joint was clearly an intra-articular infection subsequently the fluid was cultured the medial parapatellar incision was opened the wound was Pulsavac with 10 L of sterile saline solution with antibiotics the polyhad been removed the Betadine soak was performed as well as a Betadine scrub to the implant for the biofilm removal the versa jet was used in the subcutaneous tissues of the prepatellar bursa as well as the intra- articular portion of the joint throughout all tricompartmental areas to remove any biofilm and membrane of the wound was irrigated with 10 L of sterile saline solution impregnated with Ancef antibiotics 1 g per 3000 the wound was thoroughly irrigated dressings were changed the drapes were changed as well as all on the field suctions cauteries pulse fax were all changed to a new set the wound was once again irrigated with copious muscle sterile saline solution a size 10 mm implant was replaced the wound was again irrigated with copious mu scle sterile saline solution the medial parapatellar incision was closed over medium bore Hemovac with #1 Vicryl subcu was closed with 0 Vicryl the skin was closed skin clips sterile compressive dressing was placed the patient was taken to recovery in stable condition please note Brayan BILLINGSLEY was necessary prepping draping retraction wound closure of deep fascia subcu and skin was necessary for the case I attest to the content of the Intraoperative Record and any orders documented therein. Any exceptions are noted below.
--- NOTE | 2021-04-12 15:01 | Anesthesiology Progress Note ---
Date of Service April 12, 2021 Anesthesia Post Procedure Vital Signs Vital Signs: Temp Pulse Pulse Resp BP Pulse Ox 04/12/21 14:45 65 16 127/70 95 04/12/21 14:35 67 18 123/70 98 04/12/21 14:29 36.3 C L 62 12 113/63 100 04/12/21 11:35 37 C 60 18 129/80 96 04/12/21 09:04 68 123/77 04/12/21 07:30 36.8 C 69 16 120/75 96 04/11/21 22:24 36.6 C 66 16 121/78 95 04/11/21 15:15 37.1 C 72 16 113/69 97 Pain Intensity Left Knee: Pain Intensity: 5 Transfer of Care Handoff Completed per policy Notes Mental Status: alert / awake / arousable Patient Amnestic to Procedure: Yes Nausea / Vomiting: adequately controlled Pain: adequately controlled Airway Patency, RR, SpO2: stable & adequate BP & HR: stable & adequate Hydration State: stable & adequate Anesthetic Complications: no major complications apparent
--- NOTE | 2021-04-12 15:02 | XRay Report ---
XR knee LT 1 or 2V routine CLINICAL HISTORY: Left knee incision and drainage. COMPARISON: Left knee radiographs December 01, 2020. CT of the left knee April 10, 2021. FINDINGS: Alignment of the left knee arthroplasty is anatomic. There is no periprosthetic fracture o r unexpected radiopaque foreign body. Skin merly are present. Surgical drains are in place. IMPRESSION: Postoperative findings within the left knee, as described above. ACT 112: Negative or not required by law. Electronically signed by: Urbano Dos Santos M.D. 04/12/2021 3:00 PM
[2021-04-12] MEDS ORDERED: bisacodyL 10 MG SUPP PR PRN (15:38)
[2021-04-12] MEDS ORDERED: MAGNESIUM HYDROXIDE SUSP 30 ML UDC PO PRN (15:38)
[2021-04-12] MEDS ORDERED: HYDROmorphone INJ 0.5 MG/0.5 ML SYR IV PRN (15:38)
[2021-04-12] MEDS: SODIUM CHLORIDE 0.9% 1000ML 1,000 ML IV SCH (15:51)
[2021-04-12] MEDS: ACETAMINOPHEN 500 MG TAB PO SCH (21:20)
[2021-04-12] MEDS: oxyCODONE HCL IR 5 MG TAB (IMMEDIATE RELEASE) PO PRN (21:20)
[2021-04-12] MEDS: TOPIRAMATE 100 MG TAB PO SCH (21:23)
[2021-04-12] MEDS: SENNA 8.6 MG TAB PO SCH (21:23)
[2021-04-12] MEDS: DOCUSATE SODIUM 100 MG CAP PO SCH (21:23)
[2021-04-12] MEDS: traZODone HCL 100 MG TAB PO SCH (21:23)
[2021-04-13] MEDS: SODIUM CHLORIDE 0.9% 1000ML 1,000 ML IV SCH (01:55)
[2021-04-13 03:12] LABS: Hepatitis A Antibody IgM NON-REACTIVE (NON-REACTIVE); Hepatitis B Core Antibody IgM NON-REACTIVE (NON-REACTIVE)
[2021-04-13] MEDS ORDERED: VANCOMYCIN TROUGH ONE (05:30)
[2021-04-13] MEDS: cefTRIAXone SODIUM 2,000 MG in DEXTROSE 5% 50 ML IV SCH (05:50)
[2021-04-13] MEDS: oxyCODONE HCL IR 5 MG TAB (IMMEDIATE RELEASE) PO PRN (05:51)
[2021-04-13] MEDS: ACETAMINOPHEN 500 MG TAB PO SCH ×3 (05:51→21:24)
[2021-04-13 07:14] LABS: Basophils # (auto) 0.01 K/uL (0-0.2); Basophils % (auto) 0.1 %; Hemoglobin 11.1 g/dL (14.0-18.0); Immature Granulocytes # (auto) 0.03 K/uL (0.00-0.02); Immature Granulocytes % (auto) 0.3 %; Lymphocytes % (auto) 9.2 %; Mean Corpuscular Hemoglobin 31.2 pg (25-34); Mean Corpuscular Hgb Conc 33.6 g/dL (32-36); Mean Corpuscular Volume 92.7 fL (80-100); Mean Platelet Volume 10.8 fL (7.4-10.4); Monocytes # (auto) 0.99 K/uL (0.11-0.59); Monocytes % (auto) 10.2 %; Neutrophils % (auto) 80.2 %; Platelet Count 172 K/uL (130-400); RDW Standard Deviation 51.7 fL (36.4-46.3); Red Blood Count 3.56 M/uL (4.7-6.1); White Blood Count 9.73 K/uL (4.8-10.8)
[2021-04-13 07:40] LABS: Albumin Level 2.5 gm/dl (3.4-5.0); BUN Creatinine Ratio 24.7 (10-20); Calcium 8.8 mg/dl (8.5-10.1); Creatinine Clr Calc Pharmacy 133.4 ml/min; Est GFR (Non-African American) 95.7 ml/min; Potassium 3.7 mmol/L (3.5-5.1)
[2021-04-13 07:44] LABS: Albumin Globulin Ratio 0.6 (0.9-2); Globulin 4.1 gm/dl (2.5-4.0); Total Protein 6.6 gm/dl (6.4-8.2)
--- NOTE | 2021-04-13 07:59 | Hospitalist Progress Note ---
Date of Service April 13, 2021 Assessment & Plan (1) Arthritis of knee, left: Plan: Harry Abdi is a 66 yo male with PMHx of gout, HLD, HTN, Anxiety, back pain, BPH, venous insufficiency and s/p left total knee in November 2020 with [facility], who was a direct admission from [facility] on 04/11 for concern of septic arthritis. MSSA Bacteremia secondary to Septic Arthritis S/s septic arthritis although without arthrocentesis as of yet, WBC/CRP/ESR elevated, OSH blood cx positive for GPC in clusters (2/2 samples). Received Ancef IV x1 in OSH. - OSH images sent via disc - CT knee showing joint effusion - TTE with EF 55-60% and mild MR/TR but no signs of vegetations/endocarditis -Per phone conversation with [facility] lab, patient has 2 blood cultures preliminarily growing MSSA - Blood cultures taken on admission here growing MSSA that is resistant to clinda and erythromycin - Ortho consulted (Dr. Painter, who performed left TKA) - appreciate recs - arthrocentesis done 04/11 with 47,970 WBC in yellow synovial fluid Gram stain with few gram-positive cocci, culture preliminary showing Staphylococcus species with sensitivities to follow - I&D and poly exchange performed 04/14 and left knee specimen sent -- growing staphylococcus species - Vanc stopped 04/12, continue CTX 2g IV daily - Infectious Disease consult placed - Repeat BCx after abx ordered today - continuing home pain medications that include: Gabapentin, Baclofen - continue PRN Tylenol and Oxycodone Direct Hyperbilirubinemia T. Bili back to normal today, liver enzymes remain normal - RUQ US with Hepatomegaly. Possible liver cirrhosis. - Hepatitis panel negative - Recommend outpatient discussion of this HTN - continue home BP meds Venous insufficiency - continue home Bumex Depression - continue home meds Back pain - continue home meds HUMBERTO - not on home CPAP - consideration of CPAP, will defer to PCP BPH - continue home meds Gout - continue Allopurinol Code: FULL CODE FEN/GI: Regular DVT ppx: Lovenox Dispo: med/surg (2) BPH (benign prostatic hyperplasia): (3) Anxiety: (4) Depression: (5) GERD (gastroesophageal reflux disease): (6) Hyperlipidemia: (7) Hypertension: (8) Sleep apnea: (9) Nonobstructive atherosclerosis of coronary artery: Admission and Anticipated Discharge Date Admission Date: April 11, 2021 Supervising Physician Co-Signing Physician Notes Resident Physician Supervision Note: I independently interviewed and examined the patient and verified the ludwig history and physical, reviewed labs and image studies and agree with resident Dr. Lerner findings and care plan. Subjective Patient seen at bedside this AM. He reports that he does not have pain. Discussed his RUQ US findings and asked about alcohol consumption. Patient mentions occasional 1-2 drinks, denies any daily use. Review of Systems Review of Systems: Denies fever, chills, CADENA, CP, palp, SOB, cough, n/v, abd pain, diarrhea, fever, chills. Physical Exam Physical Exam: General: A&Ox3. NAD. Cooperative. HEENT: Atraumatic, normocephalic. Pulm: CTAB A&P. -wheezes, -rales, -rhonchi. Symmetrical chest rise. No increase work of breathing. No respiratory distress. Cardiac: RRR, -mrg. Radial pulses intact and symmetrical. Abdominal: soft, non-tender, non-distended, BS x 4 Left knee: Left knee covered with wraps and with wound vac in place Results & Data Results & Data ([facility]) Vital Signs (Past 12 Hours) Vital Signs Temp Pulse Resp BP Pulse Ox 04/13/21 03:38 36.4 C L 59 L 16 117/69 98 04/12/21 22:35 36.6 C 63 16 115/73 96 Resident Activity Tracking Resident Involvement: Resident Care Provided Care Provided: Adult Hospital Medicine
[2021-04-13] MEDS: ATORVASTATIN 20 MG TAB PO SCH (09:23)
[2021-04-13] MEDS: allopurinoL 300 MG TAB PO SCH (09:23)
[2021-04-13] MEDS: BACLOFEN 10 MG TAB PO SCH ×2 (09:23→20:01)
[2021-04-13] MEDS: BUMETANIDE 1 MG TAB PO SCH ×2 (09:23→20:01)
[2021-04-13] MEDS: lisinopril 5 MG TAB PO SCH (09:24)
[2021-04-13] MEDS: DULoxetine HCL 60 MG CAP PO SCH ×2 (09:24→20:00)
[2021-04-13] MEDS: DOCUSATE SODIUM 100 MG CAP PO SCH ×2 (09:24→20:03)
[2021-04-13] MEDS: GABAPENTIN 300 MG CAP PO SCH ×3 (09:24→20:00)
[2021-04-13] MEDS: MONTELUKAST SODIUM 10 MG TABLET PO SCH (09:24)
[2021-04-13] MEDS: MULTIVITAMIN TAB PO SCH (09:24)
[2021-04-13] MEDS: busPIRone 15 MG TAB PO SCH ×2 (09:24→20:02)
[2021-04-13] MEDS: PANTOprazole 40 MG TAB PO SCH ×2 (09:25→20:01)
[2021-04-13] MEDS: TAMSULOSIN HCL 0.4 MG CAP PO SCH (09:25)
[2021-04-13] MEDS: PRIMIDONE 50 MG TAB PO SCH (09:25)
[2021-04-13] MEDS: PROPRANOLOL HCL 80 MG TAB PO SCH (09:52)
--- NOTE | 2021-04-13 13:45 | Orthopedic Progress Note ---
Date of Service April 13, 2021 Assessment & Plan (1) Infected prosthetic knee joint: Plan: Postop day 1 status post irrigation and debridement with polyethylene bearing change of septic left TKA PT/OT protocols. Weightbearing as tolerated. DVT prophylaxis-enoxaparin subcu daily, SCDs. Pain management as written. Cultures showing MSSA with resistance to clindamycin and erythromycin. Vancomycin discontinued and patient continued on ceftriaxone. Infectious d isease consult placed by hospitalist team. Blood cultures redrawn. Plan for PICC line when clear. Will need 6 weeks of IV antibiotics. DC planning-home health services with long-term IV antibiotics and PT. Admission and Anticipated Discharge Date Admission Date: April 11, 2021 Subjective Postop day 1 Patient lying in bed. Awake and alert. States his knee is feeling little better today. No other complaints at this time. States he was up with physical therapy a little bit today. Physical Exam Physical Exam: Dressings are clean, dry, and intact. Calves are soft and n ontender. Neurovascular is intact. Toes are mobile. Drainage is slowing down in his Hemovac. Minimal to no drainage noted in the Prevena wound VAC. Results & Data ([facility]) Vital Signs (Past 12 Hours) Vital Signs Temp Pulse Pulse Resp BP Pulse Ox 04/13/21 12:20 36.4 C L 71 20 142/77 H 96 04/13/21 09:18 66 106/69 04/13/21 07:00 36.4 C L 55 L 18 109/65 96 04/13/21 03:38 36.4 C L 59 L 16 117/69 98 Laboratory Results Laboratory Results WBC 9.73 K/uL (4.8-10.8) 04/13/21 06:41 RBC 3.56 M/uL (4.7-6.1) L 04/13/21 06:41 Hgb 11.1 g/dL (14.0-18.0) L 04/13/21 06:41 Hct 33.0 % (42-52) L 04/13/21 06:41 MCV 92.7 fL (80-100) 04/13/21 06:41 MCH 31.2 pg (25-34) 04/13/21 06:41 MCHC 33.6 g/dL (32-36) 04/13/21 06:41 RDW Std Deviation 51.7 fL (36.4-46.3) H 04/13/21 06:41 RDW Coeff of Lorena 15.0 % (11.5-14.5) H 04/13/21 06:41 Plt Count 172 K/uL (130-400) 04/13/21 06:41 MPV 10.8 fL (7.4-10.4) H 04/13/21 06:41 Immature Gran % (Auto) 0.3 % 04/13/21 06:41 Neut % (Auto) 80.2 % 04/13/21 06:41 Lymph % (Auto) 9.2 % 04/13/21 06:41 Rooks % (Auto) 10.2 % 04/13/21 06:41 Eos % (Auto) 0.0 % 04/13/21 06:41 Baso % (Auto) 0.1 % 04/13/21 06:41 Neut # (Auto) 7.80 K/uL (1.4-6.5) H 04/13/21 06:41 Lymph # (Auto) 0.90 K/uL (1.2-3.4) L 04/13/21 06:41 Rooks # (Auto) 0.99 K/uL (0.11-0.59) H 04/13/21 06:41 Eos # (Auto) 0.00 K/uL (0-0.5) 04/13/21 06:41 Baso # (Auto) 0.01 K/uL (0-0.2) 04/13/21 06:41 Immature Gran # (Auto) 0.03 K/uL (0.00-0.02) H 04/13/21 06:41 RBC Morphology Unremarkable 04/12/21 05:15 ESR 72 mm/hr (0-20) H 04/11/21 05:28 Sodium 137 mmol/L (136-145) 04/13/21 06:41 Potassium 3.7 mmol/L (3.5-5.1) D 04/13/21 06:41 Chloride 106 mmol/L (98-107) 04/13/21 06:41 Carbon Dioxide 22 mmol/L (21-32) 04/13/21 06:41 Anion Gap 9.0 (3-11) 04/13/21 06:41 BUN 19 mg/dl (7-18) H 04/13/21 06:41 Creatinine 0.76 mg/dl (0.6-1.4) 04/13/21 06:41 Est Cr Clr Drug Dosing 133.4 ml/min 04/13/21 06:41 Est GFR ( Amer) 111.0 ml/min 04/13/21 06:41 Est GFR (Non-Af Amer) 95.7 ml/min 04/13/21 06:41 BUN/Creatinine Ratio 24.7 (10-20) H 04/13/21 06:41 Glucose 115 mg/dl (70-99) H 04/13/21 06:41 Calcium 8.8 mg/dl (8.5-10.1) 04/13/21 06:41 Phosphorus 2.9 mg/dl (2.5-4.9) 04/12/21 05:15 Magnesium 1.9 mg/dl (1.8-2.4) 04/12/21 05:15 Total Bilirubin 1.0 mg/dl (0.2-1) D 04/13/21 06:41 Direct Bilirubin 0.7 mg/dl (0-0.2) H 04/12/21 05:15 GGT 27 U/L (3-70) 04/11/21 11:14 AST 44 U/L (15-37) H 04/13/21 06:41 ALT 36 U/L (12-78) 04/13/21 06:41 Alkaline Phosphatase 93 U/L (45-117) 04/13/21 06:41 C-Reactive Protein 25.80 mg/dl (0-0.29) H 04/11/21 05:28 Total Protein 6.6 gm/dl (6.4-8.2) 04/13/21 06:41 Albumin 2.5 gm/dl (3.4-5.0) L 04/13/21 06:41 Globulin 4.1 gm/dl (2.5-4.0) H 04/13/21 06:41 Albumin/Globulin Ratio 0.6 (0.9-2) L 04/13/21 06:41 Triglycerides 89 mg/dl (0-150) 04/13/21 06:41 Cholesterol 94 mg/dl (0-200) 04/13/21 06:41 LDL Cholesterol, Calc 42 mg/dl 04/13/21 06:41 VLDL Cholesterol, Calc 18 mg/dl 04/13/21 06:41 HDL Cholesterol 34 mg/dl 04/13/21 06:41 Cholesterol/HDL Ratio 3 04/13/21 06:41 Procalcitonin 0.33 ng/ml (0-0.5) 04/11/21 11:14 Fluid Comment 04/11/21 11:11 Synovial Source KNEE 04/11/21 11:11 Synovial Color YELLOW 04/11/21 11:11 Synovial Appearance CLOUDY 04/11/21 11:11 Synovial WBC 06282 /ul (0-200) H 04/11/21 11:11 Synovial RBC 44681 /uL 04/11/21 11:11 Synovial Polynuclear % 88.7 % 04/11/21 11:11 Synovial Mononuclear % 11.3 % 04/11/21 11:11 Synovial Crystals 04/11/21 11:11 Random Vancomycin < 0.8 mcg/ml 04/11/21 05:28 Hepatitis A IgM Ab NON-REACTIVE (NON-REACTIVE) 04/11/21 05:28 Hep Bs Antigen Neg (Neg) 04/11/21 05:28 Hep B Core IgM Ab NON-REACTIVE (NON-REACTIVE) 04/11/21 05:28 Hepatitis C Ab Screen Neg (Neg) 04/11/21 05:28 Hepatitis C Antibody Neg (Neg) 04/11/21 05:28 Bld Cult Staph aureus PCR Positive (Negative) A 04/11/21 05:28 Blood Culture MRSA PCR Negative (Negative) 04/11/21 05:28
[2021-04-13] MEDS: TOPIRAMATE 100 MG TAB PO SCH (20:00)
[2021-04-13] MEDS: traZODone HCL 100 MG TAB PO SCH (20:03)
[2021-04-13] MEDS: SENNA 8.6 MG TAB PO SCH (20:03)
[2021-04-13] MEDS ORDERED: ASPIRIN 81 MG ECTAB PO SCH (21:00)
[2021-04-14] MEDS: ACETAMINOPHEN 500 MG TAB PO SCH ×3 (05:53→21:39)
[2021-04-14] MEDS: cefTRIAXone SODIUM 2,000 MG in DEXTROSE 5% 50 ML IV SCH (05:53)
[2021-04-14 07:13] LABS: Basophils # (auto) 0.03 K/uL (0-0.2); Basophils % (auto) 0.4 %; Eosinophils # (auto) 0.09 K/uL (0-0.5); Eosinophils % (auto) 1.3 %; Hematocrit (blood only) 32.6 % (42-52); Hemoglobin 10.6 g/dL (14.0-18.0); Immature Granulocytes # (auto) 0.09 K/uL (0.00-0.02); Immature Granulocytes % (auto) 1.3 %; Lymphocytes # (auto) 1.57 K/uL (1.2-3.4); Lymphocytes % (auto) 22.1 %; Mean Corpuscular Hemoglobin 31.1 pg (25-34); Mean Corpuscular Hgb Conc 32.5 g/dL (32-36); Mean Corpuscular Volume 95.6 fL (80-100); Mean Platelet Volume 10.4 fL (7.4-10.4); Monocytes % (auto) 11.3 %; Neutrophils # (auto) 4.51 K/uL (1.4-6.5); Neutrophils % (auto) 63.6 %; Platelet Count 187 K/uL (130-400); RDW Coefficient of Variation 15.1 % (11.5-14.5); RDW Standard Deviation 53.1 fL (36.4-46.3); Red Blood Count 3.41 M/uL (4.7-6.1); White Blood Count 7.09 K/uL (4.8-10.8)
[2021-04-14 07:50] LABS: Albumin Level 2.4 gm/dl (3.4-5.0); BUN Creatinine Ratio 25.4 (10-20); Calcium 8.5 mg/dl (8.5-10.1); Creatinine Clr Calc Pharmacy 142.8 ml/min; Est GFR (African American) 114.1 ml/min; Est GFR (Non-African American) 98.5 ml/min
[2021-04-14] MEDS: PROPRANOLOL HCL 80 MG TAB PO SCH (07:50)
[2021-04-14] MEDS: TAMSULOSIN HCL 0.4 MG CAP PO SCH (07:50)
[2021-04-14] MEDS: lisinopril 5 MG TAB PO SCH (07:50)
[2021-04-14] MEDS: ENOXAPARIN INJ 40 MG/0.4 ML SYR SQ SCH (07:50)
[2021-04-14] MEDS: busPIRone 15 MG TAB PO SCH ×2 (07:51→21:02)
[2021-04-14] MEDS: MONTELUKAST SODIUM 10 MG TABLET PO SCH (07:51)
[2021-04-14] MEDS: allopurinoL 300 MG TAB PO SCH (07:51)
[2021-04-14] MEDS: ATORVASTATIN 20 MG TAB PO SCH (07:51)
[2021-04-14] MEDS: DOCUSATE SODIUM 100 MG CAP PO SCH ×2 (07:51→21:04)
[2021-04-14] MEDS: BUMETANIDE 1 MG TAB PO SCH ×2 (07:52→21:02)
[2021-04-14] MEDS: MULTIVITAMIN TAB PO SCH (07:52)
[2021-04-14] MEDS: PRIMIDONE 50 MG TAB PO SCH (07:52)
[2021-04-14] MEDS: BACLOFEN 10 MG TAB PO SCH ×2 (07:53→21:01)
[2021-04-14] MEDS: DULoxetine HCL 60 MG CAP PO SCH ×2 (07:53→21:03)
[2021-04-14] MEDS: GABAPENTIN 300 MG CAP PO SCH ×3 (07:54→21:04)
[2021-04-14] MEDS: PANTOprazole 40 MG TAB PO SCH ×2 (07:54→21:05)
[2021-04-14 07:55] LABS: Albumin Globulin Ratio 0.6 (0.9-2); Bilirubin,Total 0.6 mg/dl (0.2-1); Globulin 3.9 gm/dl (2.5-4.0); Total Protein 6.3 gm/dl (6.4-8.2)
--- NOTE | 2021-04-14 08:05 | Hospitalist Progress Note ---
Date of Service April 14, 2021 Assessment & Plan (1) Arthritis of knee, left: Plan: Harry Abdi is a 66 yo male with PMHx of gout, HLD, HTN, Anxiety, back pain, BPH, venous insufficiency and s/p left total knee in November 2020 with [facility], who was a direct admission from [facility] on 04/11 for concern of septic arthritis. MSSA Bacteremia secondary to Septic Arthritis S/s septic arthritis although without arthrocentesis as of yet, WBC/CRP/ESR elevated, OSH blood cx positive for GPC in clusters (2/2 samples). Received Ancef IV x1 in OSH. - OSH images sent via disc - CT knee showing joint effusion - TTE with EF 55-60% and mild MR/TR but no signs of vegetations/endocarditis -Per phone conversation with [facility] lab, patient has 2 blood cultures preliminarily growing MSSA - Blood cultures taken on admission here growing MSSA that is resistant to clinda and erythromycin - Ortho consulted (Dr. Painter, who performed left TKA) - appreciate recs - arthrocentesis done 04/11 with 47,970 WBC in yellow synovial fluid Gram stain with few gram-positive cocci, culture preliminary showing Staphylococcus species with sensitivities to follow - I&D and poly exchange performed 04/14 and left knee specimen sent -- growing staphylococcus species - Vanc stopped 04/12, stopped CTX 04/14 in favor of cefazolin as below - Infectious Disease consulted: -- Cefazolin 2g IV q8h (tentative end date 05/24/21) -- Whle on cefazolin, weekly CBC, BMP, CRP -- Since knee surgery only included polyliner exchange, likely need long-term PO suppression afterwards -- May ultimately require a 2-stage revision to ultimately resolve -- May f/u in ID clinic - Repeat BCx after abx pending - Patient consented and PICC line placed - continuing home pain medications that include: Gabapentin, Baclofen - continue PRN Tylenol and Oxycodone Direct Hyperbilirubinemia T. Bili back to normal today, liver enzymes remain normal - RUQ US with Hepatomegaly. Possible liver cirrhosis. - Hepatitis panel negative - Recommend outpatient discussion of this HTN - continue home BP meds Venous insufficiency - continue home Bumex Depression - continue home meds Back pain - continue home meds HUMBERTO - not on home CPAP - consideration of CPAP, will defer to PCP BPH - continue home meds Gout - continue Allopurinol Code: FULL CODE FEN/GI: Regular DVT ppx: Lovenox Dispo: med/surg (2) BPH (benign prostatic hyperplasia): (3) Anxiety: (4) Depression: (5) GERD (gastroesophageal reflux disease): (6) Hyperlipidemia: (7) Hypertension: (8) Sleep apnea: (9) Nonobstructive atherosclerosis of coronary artery: Admission and Anticipated Discharge Date Admission Date: April 11, 2021 Supervising Physician Co-Signing Physician Notes Resident Physician Supervision Note: I independently interviewed and examined the patient and verified the ludwig history and physical, reviewed labs and image studies and agree with resident Dr. Lerner findings and care plan. Subjective No acute events overnight. Had PICC line placed without issues. No other issues/complaints. Review of Systems Review of Systems: Denies fever, chills, CADNEA, CP, palp, SOB, cough, n/v, abd pain, diarrhea, fever, chills. Physical Exam Physical Exam: General: A&Ox3. NAD. Cooperative. HEENT: Atraumatic, normocephalic. Pulm: CTAB A&P. -wheezes, -rales, -rhonchi. Symmetrical chest rise. No increase work of breathing. No respiratory distress. Cardiac: RRR, -mrg. Radial pulses intact and symmetrical. Abdominal: soft, non-tender, non-distended, BS x 4 Left knee: Left knee covered with wraps and with wound vac in place Results & Data Results & Data ([facility]) Vital Signs (Past 12 Hours) Vital Signs Temp Pulse Resp BP Pulse Ox 04/14/21 07:30 36.4 C L 66 16 129/75 98 04/13/21 22:02 37.0 C 65 18 127/75 97 Resident Activity Tracking Resident Involvement: Resident Care Provided Care Provided: Adult Hospital Medicine
--- NOTE | 2021-04-14 08:20 | Medical Student Progress Note ---
Date of Service April 14, 2021 Assessment & Plan (1) Infected prosthetic knee joint: Plan: Summary: 66 y/o male patient with h/o of Gout and Anxiety presented 2 days ago for LT knee pain with effusion. He was admitted for a septic Lt Prosthetic Knee. I&D on 04/12/21 with no complications. This morning he states he is doing well with no immediate concerns at this time. Telehealth visit with Infectious Disease yesterday afternoon. Active Problems #1 S/P Left Prosthetic Knee I&D Pending blood cultures drawn 04/13/21 for clearance of infection. Continue MSSA Tx with 2,000mg Ceftriaxone IV Q24H. Infectious Disease wants to start him on Cefazolin 2g IV q8 when he is discharged. PICC line was placed last night. Surveillance Blood culture negative at 24hrs. #2 Bacteremia ABx Tx see as above. Per ID, TONYA not required if pending blood work returns negative F/U with ID to have CBC, BMP and CRP tested weekly F/U with ID to assess need for senior care ABx Chronic Problems #1 Gout He has a long h/o of Gout attacks, well controlled with Allopurinol F/U with his PCP For Tx. #2 Hyperlipidemia Continue Atorvastatin at home #5 Hypertension Continue Lisinopril, Bumetanide and Propranolol at home per his PCP #6 GERD Continue Pantoprazole #7 Depression Continue Duloxetine and Trazodone #8 Anxiety Continue Buspirone and Propranolol #9 BPH Continue Tamsulosin at home per his PCP Misc Home Medications: continue Acetaminophen, Baclofen, Bumetanide, Gabapentin, Montelukast, Topirimate DVT Prophylaxis: Lovonox 40 aQM FEN/GI: Regular Diet Code Status: Full Code Dispo: Home pending continued negative blood culture with PICC line Admission and Anticipated Discharge Date Admission Date: April 11, 2021 Subjective 66 y/o malewith h/o of Gout and Anxiety 2 days S/P Left Prosthetic Knee I&D. He states he is feeling well this morning, no change from yesterday. No discomfort to his legs. He met with OT/PT yesterday and was told he was doing well. He has been able to get out of bed to walk with his walker with the help of the nurses. He is able to go to the bathroom with no issues. He has no immediate concerns at this time. Physical Exam Constitutional: Pleasant affect. Responding appropriately to questions. Eyes: No visible discharge from eyes. Respiratory: No labored breaths. Musculoskeletal: His leg remains wrapped as it was yesterday therefore I could not fully assess his leg. But I did not noticed any discharge from his wraps and I did not notice any particular smells. I removed his socks to assess his ankle, where he states he noticed straches prior to his surgery, I did not observe any erythema, lacerations or pus. There is ecchymosis related to his surgery, and that finding remains unchanged from yesterday's physical. Skin: No visible lesions to exposed areas. Results & Data ([facility]) Vital Signs (Past 12 Hours) Vital Signs Temp Pulse Resp BP Pulse Ox 04/14/21 07:30 36.4 C L 66 16 129/75 98 04/13/21 22:02 37.0 C 65 18 127/75 97 Laboratory Results Hb - 10.6 g/dL Hct - 32.6% WBC - 7.09 K/uL Plt - 187 K/uL Na - 139 mmol/L K - 3 mmol/L Cl - 107 mmol/L HCO3 - 25 mmol/L BUN - 18 mg/dl Cr - .71 mg/dl Glucose - 99 mg/dl
--- NOTE | 2021-04-14 08:38 | Orthopedic Progress Note ---
Date of Service April 14, 2021 Assessment & Plan (1) Infected prosthetic knee joint: Plan: Postop day 2 status post irrigation and debridement with polyethylene bearing change of septic left TKA PT/OT protocols. Weightbearing as tolerated. DVT prophylaxis-enoxaparin subcu daily, SCDs. Pain management as written. Cultures showing MSSA with resistance to clindamycin and erythromycin. Vancomycin discontinued and patient continued on ceftriaxone. Infectious d isease consult done. Blood cultures redrawn and currently negative. Planning for long-term IV antibiotics. DC planning-home health services with long-term IV antibiotics and PT. Admission and Anticipated Discharge Date Admission Date: April 11, 2021 Subjective Postop day 2 Patient lying in bed awake and alert. No complaints this morning. Feeling well. Pain controlled. Denies shortness of breath, chest pain, lightheadedness. Patient states he received his PICC line yesterday. He states he also spoke to infectious disease service yesterday. Patient discussed the possibility of going home tomorrow since his has the day off. We discussed that we would see how things work out considering his blood cultures and case management arranging home health services etc. Physical Exam Physical Exam: Dressings are clean, dry, and intact. Prevena dressing intact and functioning. Calves are soft and nontender. Neurovascular intact. Toes are mobile. Hemovac drainage is increased somewhat. 100 mL removed around midnight. Another 125 this morning. All serous looking drainage. Results & Data ([facility]) Vital Signs (Past 12 Hours) Vital Signs Temp Pulse Resp BP Pulse Ox 04/14/21 07:30 36.4 C L 66 16 129/75 98 04/13/21 22:02 37.0 C 65 18 127/75 97
[2021-04-14] MEDS: POTASSIUM CHLORIDE / WTR 10 MEQ/100 ML PLCT IV SCH ×4 (12:08→15:33)
[2021-04-14] MEDS: TOPIRAMATE 100 MG TAB PO SCH (21:05)
[2021-04-14] MEDS: traZODone HCL 100 MG TAB PO SCH (21:05)
[2021-04-14] MEDS: SENNA 8.6 MG TAB PO SCH (21:05)
[2021-04-15] MEDS: ACETAMINOPHEN 500 MG TAB PO SCH (05:25)
[2021-04-15] MEDS ORDERED: ceFAZolin 2000MG 2,000 MG/15 ML SYR IV SCH (06:00)
[2021-04-15 07:35] VITALS: TEMP 98.2; O2SAT 96
[2021-04-15 08:03] LABS: Basophils # (auto) 0.03 K/uL (0-0.2); Basophils % (auto) 0.4 %; Eosinophils # (auto) 0.26 K/uL (0-0.5); Eosinophils % (auto) 3.2 %; Hematocrit (blood only) 33.2 % (42-52); Hemoglobin 10.9 g/dL (14.0-18.0); Immature Granulocytes # (auto) 0.13 K/uL (0.00-0.02); Immature Granulocytes % (auto) 1.6 %; Lymphocytes # (auto) 1.44 K/uL (1.2-3.4); Mean Corpuscular Hemoglobin 30.8 pg (25-34); Mean Corpuscular Hgb Conc 32.8 g/dL (32-36); Mean Corpuscular Volume 93.8 fL (80-100); Mean Platelet Volume 9.6 fL (7.4-10.4); Monocytes # (auto) 0.82 K/uL (0.11-0.59); Monocytes % (auto) 10.2 %; Neutrophils # (auto) 5.33 K/uL (1.4-6.5); Neutrophils % (auto) 66.6 %; Platelet Count 208 K/uL (130-400); RDW Coefficient of Variation 15.2 % (11.5-14.5); RDW Standard Deviation 52.2 fL (36.4-46.3); Red Blood Count 3.54 M/uL (4.7-6.1); White Blood Count 8.01 K/uL (4.8-10.8)
--- NOTE | 2021-04-15 08:20 | Discharge Summary ---
Date of Service April 15, 2021 Admission HPI Per Admitting Provider This is a patient who had left total knee arthroplasty done in November of this year. He had progressed well postoperatively. However, 3 days ago, he started having severe pain in the left knee. It difficulties with ambulation. He came to the emergency room last night and he was admitted for evaluation of the knee. States the knee has been warm painful with any motion or attempted ambulation. Principal Diagnosis Septic Arthritis, MSSA bacteremia Discharge Exam General: A&Ox3. NAD. Cooperative. HEENT: Atraumatic, normocephalic. Pulm: CTAB A&P. -wheezes, -rales, -rhonchi. Symmetrical chest rise. No increased work of breathing. No respiratory distress. Cardiac: RRR, -mrg. Abdominal: soft, non-tender, non-distended, BS x 4 Left knee: Left knee covered with ERUM wraps and brace Discharge Data Allergies Allergy/AdvReac Type Severity Reaction Status Date / Time No Known Allergies Unverified 12/01/20 05:36 Consultations 04/11/21 04:54 Consult Orthopedic Surgery Routine 04/13/21 10:11 Consult Infectious Diseases Routine Procedures Performed Operation Date: 04/12/21 07:00 Actual Procedures p Left Knee Incision and Drainage(Left) - Anand Villatoro DO s Poly Exchange(Left) - Anand Villatoro DO Ordered Studies 04/11/21 13:26 liver Urgent Hospital Course (1) Arthritis of knee, left: Harry Abdi is a 66 yo male with PMHx of gout, HLD, HTN, Anxiety, back pain, BPH, venous insufficiency and s/p left total knee in November 2020 with [facility], who was a direct admission from [facility] on 04/11 for concern of septic arthritis. MSSA Bacteremia secondary to Septic Arthritis S/s septic arthritis although without arthrocentesis as of yet, WBC/CRP/ESR elevated, OSH blood cx positive for GPC in clusters (2/2 samples). Received Ancef IV x1 in OSH. - OSH images sent via disc - CT knee showing joint effusion - TTE with EF 55-60% and mild MR/TR but no signs of vegetations/endocarditis - Blood cultures from [facility] with MSSA - Blood cultures taken on admission here growing MSSA that is resistant to clinda and erythromycin - Ortho consulted (Dr. Painter, who performed left TKA) - appreciate recs - arthrocentesis done 04/11 with 47,970 WBC in yellow synovial fluid Gram stain with few gram-positive cocci, culture preliminary showing Staphylococcus species with sensitivities to follow - I&D and poly exchange performed 04/14 and left knee specimen sent -- grew MSSA - Vanc stopped 04/12, stopped CTX 04/14 in favor of cefazolin as below - Infectious Disease consulted: -- Cefazolin 2g IV q8h (tentative end date 05/24/21) -- Whle on cefazolin, weekly CBC, BMP, CRP -- Since knee surgery only included polyliner exchange, likely need long-term PO suppression afterwards -- May ultimately require a 2-stage revision to ultimately resolve -- May f/u in ID clinic - Repeat BCx after starting antibiotics with no growth after 48 hours at time of discharge - Patient consented and PICC line placed -- continue abx x6 weeks as above - Case management coordinated home nursing as well as home PT for patient after DC - Elquis 2.5 mg PO BID at discharge for DVT prophylaxis for next 4 weeks or as instructed by ortho Direct Hyperbilirubinemia - Bili back to normal, liver enzymes remain normal - RUQ US with Hepatomegaly. Possible liver cirrhosis. - Hepatitis panel negative - Recommend outpatient discussion of this Continued all usual home meds for HTN, venous insufficiency, depression, back pa in, BPH, Gout. Consider discussion of CPAP for HUMBERTO. Code: FULL CODE DVT ppx: Eliquis 2.5mg PO BID x 4 weeks at DC Dispo: Home, home nursing for antibiotics, home PT (2) BPH (benign prostatic hyperplasia): (3) Anxiety: (4) Depression: (5) GERD (gastroesophageal reflux disease): (6) Hyperlipidemia: (7) Hypertension: (8) Sleep apnea: (9) Nonobstructive atherosclerosis of coronary artery: Total Time Total Time Spent Total Time Spent (In Minutes): see attending attestation Discharge Plan Discharge Items Patient Disposition: Home - Home Health Services Reason For Visit: SEPTIC ARTHRITIS Discharge Diagnosis: Septic arthritis, MSSA bacteremia Activity: Per Instructions section Weightbearing: Left weightbearing Weightbearing Comment: As tolerated with walker Non-emergency contact: Surgeon Call non-emergency contact if: your pain is not controlled, your temperature is above 101.5 and your wound has increased redness Follow-up/Referrals: Anand Villatoro DO [Surgeon] - 04/23/21 12:50 pm (Follow-up in 10 to 14 days from the day of surgery for staple removal and wound check) Chalo Anderson DO [Primary Care Provider] - 04/21/21 10:15 am Diet: Regular Addtl Attending Provider Instructions: You were admitted to [facility] [place] for an infection in your left prosthetic knee. Lab work also showed that the infection had spread into your bloodstream. As such, you had a revision of your left knee hardware and were started on IV antibiotics. Infectious disease was consulted on your case due to the bloodstream infection. Recommendations were made to continue intravenous antibiotics for 6 weeks. For continuation of this after discharge from the hospital, a PICC line was placed, through which you will receive all your remaining antibiotic treatments. Our case management team has set up home nursing to come in and administer your antibiotics for you. You will also take an oral anticoagulant for four weeks to decrease the possibility of blood clots after your surgery. This medication will be sent to your preferred pharmacy. You will take Eliquis 2.5mg twice daily for the next four weeks or as instructed by your Orthopedist. Please follow up with your orthopedic surgeon. Their office will be in contact with you for follow-up and, additionally, they will attempt to set up follow-up with an infectious disease specialist from [place] for you to follow-up with them as well. If you have not heard from your orthopedic surgeon's office within the next few days, please call to schedule a follow-up. If you develop any worsening signs or symptoms, including but not limited to knee swelling, knee pain, redness, fever, chills, nausea, vomiting, diarrhea please return to the hospital for further evaluation. Addtl Lathe Sander Provider Instructions: ACTIVITY RECOMMENDATIONS: SELF CARE INSTRUCTIONS AFTER TOTAL KNEE REPLACEMENT A. You may need to continue a physical therapy program after discharge from the hospital. There are several options available to you. Your doctor will assist you in selecting the best one for you. 1. An out-patient facility 2 to 3 times a week for therapy or home therapy. 2. Continue working on all exercises taught to you in the hospital. Your goals should be to increase bending of your knee to 90 degrees and beyond and to fully straighten your knee. B. You may progress at your own pace from walking with a walker or crutches to a cane; then to no assistive devices. C. Make walking a part of your daily routine. Be up as much as comfortable with rest periods throughout the day. Rest with leg elevation is very important. Use the ice wrap frequently for the first 3-4 weeks. D. There are no restrictions on activities. You may ride in a car, shop, participate in apple press operator and all social activities. E. Wear the long elastic stockings (YASMEEN hose) 20 hours a day for 2 weeks after surgery. They can be removed several times a day for laundering and for a bath. F. You may shower, no tub baths until cleared by your doctor. SPECIAL CARE INSTRUCTIONS: VERY IMPORTANT TO READ AND REVIEW A. There are a few signs you need to watch for after you are home. Call [facility] [place] [facility] if you notice any of the followin. Increased severe knee pain. Some pain is expected especially when you exercise. 2. Increased swelling in your leg or knee; pain or swelling of the calf muscle in either lower leg. 3. Any fluid drainage from the incision. 4. Shortness of breath or chest pain. B. Please call [facility] at if you have any concerns or questions about your operation or recovery. The doctor or his nurse will return your call promptly. C. You must take antibiotics before dental work, bladder, bowel or other surgery. Your doctor will provide you with a permanent care to carry describing this precaution. IMPORTANT: * YOU WILL BE ON ELIQUIS 2.5mg TWICE DAILY FOR UP TO 4 WEEKS OR DIRECTED BY YOUR PHYSICIAN. * CALL IF INCREASED PAIN, REDNESS, DRAINAGE OR FEVER GREATER THAT 101. * WEAR YASMEEN HOSE 20 HOURS PER DAY FOR 2 WEEKS. * Prevena- This is a large suction dressing covering your incision. This will help pull any excess drainage from the wound and allow your incision to heal properly. You may shower with this if you can keep the unit outside of the shower. If any bleeding or leakage is noted please call your doctor's office. This will remain on your incision for 7 days and then should be removed. This can be done yourself or by the home nursing staff if applicable. The entire unit is disposable once removed. Once removed, keep incision clean and dry. If redness or drainage is noted, please call your surgeon. . FOLLOW UP VISIT: If appointment is not already scheduled: Please call [facility] [place] to make a follow-up appointment for 2 weeks after your surgery at . Pending Studies at Discharge: No Stand-Alone Forms: My [facility] [place], Smoking Cessation Medications and DC Order Prescriptions: New Eliquis 2.5 mg tablet 2.5 mg PO BID 28 Days Qty: 56 RF: 0 Continued primidone 50 mg Tablet 50 mg PO DAILY RF: 0 propranolol 80 mg Tablet 80 mg PO QAM RF: 0 atorvastatin 20 mg Tablet 20 mg PO DAILY RF: 0 tamsulosin 0.4 mg Capsule 0.4 mg PO QAM RF: 0 trazodone 100 mg Tablet 100 mg PO HS RF: 0 baclofen 10 mg Tablet 10 mg PO BID RF: 0 pantoprazole [Protonix] 40 mg Tablet,Delayed Release (Dr/Ec) 40 mg PO BID RF: 0 buspirone 30 mg Tablet 30 mg PO BID RF: 0 bumetanide 0.5 mg Tablet 0.5 mg PO BID RF: 0 montelukast 10 mg Tablet 10 mg PO DAILY RF: 0 allopurinol 300 mg Tablet 300 mg PO QAM RF: 0 lisinopril 5 mg Tablet 5 mg PO QAM RF: 0 topiramate 100 mg Tablet 100 mg PO HS RF: 0 duloxetine 60 mg Capsule,Delayed Release(Dr/Ec) 60 mg PO BID RF: 0 levocetirizine 5 mg Tablet 5 mg PO QPM RF: 0 gabapentin 600 mg Tablet Extended Release 24 Hr 600 mg PO BID RF: 0 cholecalciferol (vitamin D3) [Vitamin D3] 125 mcg (5,000 unit) Tablet 125 mcg PO DAILY RF: 0 Discharge Orders: Discharge Order (Routine); Ordered 04/15/21 Ordered By: Neftali Workman/Other Patient Handouts: DVT Post Op Prevention, Using Blood Thinners (Anticoagulants) Admission Data Admit Date/Time: 04/11/21 04:53 Attending Provider: Arline Anderson Admit Provider: Corbin Galindo Primary Care Provider: Chalo Anderson Other Providers: Corbin Galindo ; Reji Painter ; Noel Britt ; Iona Cast ; Kalen Rivas I. ; Terry Gifford II ; Marah Ureña ; Sergei Thomas Other Interventions: Discharge Summary Assessment (RN) Last Done: 04/15/21 10:42 Supervising Physician Co-Signing Physician Notes Resident Physician Supervision Note: I independently interviewed and examined the patient and verified the ludwig history and physical, reviewed labs and image studies and agree with resident Dr. Lerner findings and care plan. Resident Activity Tracking Resident Involvement: Resident Care Provided Care Provided: Adult [facility]
[2021-04-15] MEDS: ATORVASTATIN 20 MG TAB PO SCH (08:37)
[2021-04-15 08:38] LABS: Calcium 8.6 mg/dl (8.5-10.1); Creatinine Clr Calc Pharmacy 142.8 ml/min; Est GFR (African American) 114.1 ml/min; Est GFR (Non-African American) 98.5 ml/min; Potassium 3.5 mmol/L (3.5-5.1)
[2021-04-15] MEDS: BACLOFEN 10 MG TAB PO SCH (08:39)
[2021-04-15] MEDS: MULTIVITAMIN TAB PO SCH (08:39)
[2021-04-15] MEDS: allopurinoL 300 MG TAB PO SCH (08:39)
[2021-04-15] MEDS: TAMSULOSIN HCL 0.4 MG CAP PO SCH (08:39)
[2021-04-15] MEDS: PRIMIDONE 50 MG TAB PO SCH (08:39)
[2021-04-15] MEDS: lisinopril 5 MG TAB PO SCH (08:40)
[2021-04-15] MEDS: MONTELUKAST SODIUM 10 MG TABLET PO SCH (08:40)
[2021-04-15] MEDS: GABAPENTIN 300 MG CAP PO SCH (08:40)
[2021-04-15] MEDS: busPIRone 15 MG TAB PO SCH (08:40)
[2021-04-15] MEDS: DOCUSATE SODIUM 100 MG CAP PO SCH ×2 (08:40→08:47)
[2021-04-15] MEDS: DULoxetine HCL 60 MG CAP PO SCH (08:40)
[2021-04-15] MEDS: PANTOprazole 40 MG TAB PO SCH (08:41)
[2021-04-15] MEDS: ENOXAPARIN INJ 40 MG/0.4 ML SYR SQ SCH (08:41)
[2021-04-15] MEDS: BUMETANIDE 1 MG TAB PO SCH (08:41)
[2021-04-15] MEDS: PROPRANOLOL HCL 80 MG TAB PO SCH (08:43)
[2021-04-15 08:44] VITALS: BP 138/81; PULSE 72
--- NOTE | 2021-04-15 09:55 | Orthopedic Progress Note ---
Date of Service April 15, 2021 Assessment & Plan (1) Infected prosthetic knee joint: Plan: Postop day 3 status post irrigation and debridement with polyethylene bearing change of septic left TKA PT/OT protocols. Weightbearing as tolerated. DVT prophylaxis-enoxaparin subcu daily, SCDs. Discussed with Dr. Anderson. Patient will need 4 weeks of DVT prophylaxis. This could be Lovenox daily or if patient not wanting the injections, rivaroxaban or Eliquis. Pain management as written. Cultures showing MSSA with resistance to clindamycin and erythromycin. Infectious disease consult done. Recommending Ancef 2 g IV every 8 hours for 6 weeks total. Blood cultures redrawn and currently negative. CRP down from 25 to 8 DC planning-home health services with long-term IV antibiotics and PT. follow-up with Dr. Villatoro in 10 to 14 days from the day of surgery. Admission and Anticipated Discharge Date Admission Date: April 11, 2021 Subjective Postop day 3 Patient sitting up at the bedside. He is getting ready to start his physical therapy session. No complaints today. Pain is controlled. Plans are in the works for him to be discharged home today. Physical Exam Physical Exam: Hemovac drain has been removed. Prevena wound VAC is intact and functioning. Minimal drainage. No overt erythema around the dressing itself. Calves are soft nontender. Neurovascular intact. Toes are mobile. Results & Data ([facility]) Vital Signs (Past 12 Hours) Vital Signs Temp Pulse Resp BP Pulse Ox 04/15/21 08:44 72 138/81 04/15/21 07:34 36.8 C 79 16 133/80 96 04/14/21 22:48 36.6 C 64 22 144/79 H 98
== END 2021-04-15 11:47 | disposition home health service (06) | DRG 467 ==
LOC: 3W 03:33 → SUATTDRO 03:33 → 3E 04-13 13:11
DX: G47.30 Sleep apnea, unspecified; F32.9 Major depressive disorder, single episode, unspecified; E78.5 Hyperlipidemia, unspecified; Z85.51 Personal history of malignant neoplasm of bladder; I87.2 Venous insufficiency (chronic) (peripheral); M10.9 Gout, unspecified; M25.462 Effusion, left knee; I25.2 Old myocardial infarction; T84.54XA Infection and inflammatory reaction due to internal left knee prosthesis, initial encounter; N40.0 Benign prostatic hyperplasia without lower urinary tract symptoms; Y92.019 Unspecified place in single-family (private) house as the place of occurrence of the external cause; M00.862 Arthritis due to other bacteria, left knee; I10 Essential (primary) hypertension; R78.81 Bacteremia; F41.9 Anxiety disorder, unspecified; B95.61 Methicillin susceptible Staphylococcus aureus infection as the cause of diseases classified elsewhere; M54.9 Dorsalgia, unspecified; Z98.84 Bariatric surgery status; E80.6 Other disorders of bilirubin metabolism; K21.9 Gastro-esophageal reflux disease without esophagitis; I25.10 Atherosclerotic heart disease of native coronary artery without angina pectoris

== ENCOUNTER 2021-06-07 06:50 | Inpatient (IN) ==
[2021-06-07] MEDS ORDERED: ceFAZolin 2000MG 2,000 MG/15 ML SYR IV STA ×2 (07:28→09:43)
--- NOTE | 2021-06-07 07:54 | Emergency Department Note ---
Impression & Plan Infection of total left knee replacement ED Provider Note CHIEF COMPLAINT: Left knee infection HISTORY OF PRESENT ILLNESS: This 66-year-old male patient presents to the emergency department via private vehicle at the [facility]. Patient states he had a left knee replacement done in November of this year. He states in March, he developed an infection and was hospitalized and managed by Dr. Villatoro. He states he was on a PICC line with antibiotics given until about a week and a half ago. The patient states he does not know what antibiotics he was on. He states about 1 week ago, he developed flareup of the infection, redness, swelling of the left knee. The patient denies any associated fever or body aches. No chills. No weakness, numbness, tingling. No chest pain or dyspnea. No nausea or vomiting. He was seen at [place] emergency department a day or 2 ago and was started on an antibiotic at that time, but is unclear what this antibiotic is. He states he is only taken 1 or 2 doses of it. He states this morning, he was contacted by [facility] and advised to come to the emergency department to be admitted to have surgery completed. REVIEW OF SYSTEMS: A 10 system review of systems was performed with positives and pertinent negatives listed in the history of present illness. All other systems were reviewed and are negative. ALLERGIES: None PHYSICAL EXAM: VITALS: Vitals are noted on the nurse's note and reviewed by myself. Vital signs stable. GENERAL: This is a 66-year-old white male, in no acute distress, nondiaphoretic, well-developed well-nourished. SKIN: Well-healed incision site on the left knee. Erythema, warmth, and edema of the left lower extremity from the mid melgar to the proximal knee. The skin was otherwise without rashes, erythema, edema, or bruising. There is no tenting of the skin. Capillary refill less than 2 seconds. HEAD: Normocephalic atraumatic. EYES: Conjunctivae without injection, sclerae without icterus. NECK: Supple without nuchal rigidity. No lymphadenopathy. No JVD. HEART: Regular rate and rhythm without murmurs gallops or rubs. LUNGS: Clear to auscultation bilaterally without wheezes, rales or rhonchi. No retractions or accessory muscle use. MUSCULOSKELETAL: No muscle atrophy, erythema, or edema except as noted. Tenderness with ROM of the left knee, dorsiflexion of the left ankle. Tenderness to palpation of the knee and posterior calf. Otherwise, full range of motion without joint tenderness in all extremities. No tenderness to palpation. Limping gait, tenderness with weight bearing of the LLE. Strength 5/5 throughout. NEURO: Patient was alert and oriented to person place and time. Normal sensation to light and sharp touch. Deep tendon reflexes 2+ throughout. No focal neurological deficits. EMERGENCY DEPARTMENT COURSE: The patient was seen and evaluated as above. Previous medical records reviewed. I consulted with [facility], Brayan Henao PA-C regarding this patient. He was familiar with the case and advised that he would be in to see the patient within the hour. Joint aspiration completed by him. Orthopedics will admit this patient with medicine consult. IV access obtained, labs drawn. Blood cultures obtained at the [facility]. Patient was medicated with Ancef initially. Please see orthopedics regarding ongoing management and care of this patient. Differential diagnosis includes DVT, musculoskeletal, infection, joint effusion, trauma, lymphedema, idiopathic, CHF, as well as other pathologies. I attest that I have personally reviewed the patient's current medication list. Blood Pressure Screening: Patient was found to have a slightly elevated blood pressure due to circumstances. I do not believe that the patient requires hypertension monitoring. The chart was completed utilizing [employer] Speech voice recognition software. Grammatical errors, random word insertions, pronoun errors, and incomplete s entences are an occasional consequence of this system due to software limitations, ambient noise, and hardware issues. Any formal questions or concerns about the content, text, or information contained within the body of this dictation should be directly addressed to the provider for clarification. Past Med/Surg History Medical History Anxiety BPH (benign prostatic hyperplasia) Chronic back pain Depression GERD (gastroesophageal reflux disease) Hx of bladder cancer 2018 had chemo in bladder and no problem since Hyperlipidemia Hypertension Nonobstructive atherosclerosis of coronary artery Per review of [facility] records, non-obstructive CAD by 2008 heart cath. Cardiac ca th done 05/31/10 at [facility] for NSTEMI with chest pain following a back surgery done at [facility] (POD1). 2009 cath also showed nonobstructive CAD, ACS ruled out, medically managed for risk factor modification. Echo done 06/01/10 showed preserved EF 55-60%. NSTEMI (non-ST elevated myocardial infarction) 2010, POD1 after back surgery, transferred from [facility] to [facility] for cath. Cath nonobstructive. Osteoarthritis PONV (postoperative nausea and vomiting) Sleep apnea no device Surgical History (Updated 06/07/21 @ 09:17 by Brayan Henao PA-C) History of arthroscopy of left knee History of cardiac cath RI 2012, "mild." No stents. History of open reduction and internal fixation (ORIF) procedure right arm History of rotator cuff surgery History of total left knee replacement Hx laparoscopic cholecystectomy Hx of arthroscopy of shoulder Hx of bilateral cataract extraction Hx of colonoscopy Hx of cystoscopy Hx of esophagogastroduodenoscopy Hx of fusion of cervical spine Hx of gastric bypass states gastric sleeve 2012 - lost 60'pema pounds Hx of tonsillectomy Social History Smoking Status: Never smoker Second Hand Exposure: No; Hx Alcohol Use: Yes Alcohol type: beer and wine Hx Substance Use: No Preferred Language: Sami Communication Ability: Effective Reflow Operator Required: No Beliefs That Will Affect Care: None marital status: Current Living Situation: Family Feels Safe at Home: Yes Assistive Devices: Walker Allergies Allergies Allergy/AdvReac Type Severity Reaction Status Date / Time No Known Allergies Unverified 06/07/21 07:51 Home Meds Home Medications Medication Instructions Recorded Confirmed allopurinol 300 mg tablet 300 mg PO QAM 10/26/20 06/07/21 atorvastatin 20 mg tablet 20 mg PO QPM 10/26/20 06/07/21 baclofen 10 mg tablet 10 mg PO BID 10/26/20 06/07/21 bumetanide 0.5 mg tablet 0.5 mg PO BID 10/26/20 06/07/21 buspirone 30 mg tablet 30 mg PO BID 10/26/20 06/07/21 duloxetine 60 mg capsule,delayed 60 mg PO BID 10/26/20 06/07/21 release gabapentin 600 mg tablet,extended 600 mg PO BID 10/26/20 06/07/21 release 24 hr levocetirizine 5 mg tablet 5 mg PO QAM 10/26/20 06/07/21 lisinopril 5 mg tablet 5 mg PO QAM 10/26/20 06/07/21 montelukast 10 mg tablet 10 mg PO HS 10/26/20 06/07/21 pantoprazole 40 mg tablet,delayed 40 mg PO QPM 10/26/20 06/07/21 release (Protonix) primidone 50 mg tablet 50 mg PO DAILY 10/26/20 06/07/21 propranolol 80 mg tablet 80 mg PO QAM 10/26/20 06/07/21 tamsulosin 0.4 mg capsule 0.4 mg PO QAM 10/26/20 06/07/21 topiramate 100 mg tablet 100 mg PO HS 10/26/20 06/07/21 trazodone 100 mg tablet 100 mg PO HS 10/26/20 06/07/21 cholecalciferol (vitamin D3) 50 100 mcg PO DAILY 06/07/21 06/07/21 mcg (2,000 unit) capsule (Vitamin D3) ferrous sulfate 134 mg (27 mg 0 mg PO DAILY 06/07/21 06/07/21 iron) tablet meloxicam 7.5 mg tablet 7.5 mg PO BID 06/07/21 06/07/21 Results & Data (ED) Vital Signs Vital Signs - 24 hr 06/07/21 06:57 06/07/21 07:37 06/07/21 07:45 Temperature 36.5 C Temperature Source Skin Pulse Rate 85 78 Pulse Rate [Right Finger] 74 Pulse Rhythm Regular Regular Pulse Rhythm [Right Finger] Regular Pulse Strength Normal Respiratory Rate 20 22 20 Respiratory Effort / Characteristics Non-Labored Spontaneous Non-Labored Respiratory Depth Normal Respiratory Pattern Regular Regular Blood Pressure 134/78 Blood Pressure [Right Arm] 141/68 H Blood Pressure Mean 96 Blood Pressure Mean [Right Arm] 92 Pulse Oximetry 98 98 Oxygen Delivery Method Room Air Room Air Room Air Sepsis Recent Fever Within 48 Hours No Sepsis New/Unexplained Change in Mental Status N/A Sepsis Action Taken by Nursing No Action Required 06/07/21 10:02 06/07/21 10:49 06/07/21 11:08 Temperature Temperature Source Pulse Rate Pulse Rate [Right Finger] 76 86 Pulse Rhythm Pulse Rhythm [Right Finger] Pulse Strength Respiratory Rate 22 20 Respiratory Effort / Characteristics Non-Labored Respiratory Depth Normal Respiratory Pattern Blood Pressure Blood Pressure [Right Arm] 138/73 142/77 H Blood Pressure Mean Blood Pressure Mean [Right Arm] 94 98 Pulse Oximetry 99 98 Oxygen Delivery Method Room Air Room Air Room Air Sepsis Recent Fever Within 48 Hours Sepsis New/Unexplained Change in Mental Status Sepsis Action Taken by Nursing 06/07/21 11:09 Temperature 37.5 C Temperature Source Oral Pulse Rate Pulse Rate [Right Finger] 81 Pulse Rhythm Pulse Rhythm [Right Finger] Pulse Strength Respiratory Rate 18 Respiratory Effort / Characteristics Respiratory Depth Respiratory Pattern Blood Pressure Blood Pressure [Right Arm] 135/76 Blood Pressure Mean Blood Pressure Mean [Right Arm] 95 Pulse Oximetry 99 Oxygen Delivery Method Room Air Sepsis Recent Fever Within 48 Hours Sepsis New/Unexplained Change in Mental Status Sepsis Action Taken by Nursing Laboratory Data Result diagrams: 06/07/21 08:34 06/07/21 08:34 Lab Results 06/07/21 06/07/21 06/07/21 Range/Units 08:00 08:00 08:34 WBC 7.70 (4.8-10.8) K/uL RBC 3.62 L (4.7-6.1) M/uL Hgb 10.8 L (14.0-18.0) g/dL Hct 33.8 L (42-52) % MCV 93.4 (80-100) fL MCH 29.8 (25-34) pg MCHC 32.0 (32-36) g/dL RDW Std Deviation 49.7 H (36.4-46.3) fL RDW Coeff of [place]ore[place] 14.6 H (11.5-14.5) % Plt Count 284 (130-400) K/uL MPV 9.4 (7.4-10.4) fL Immature Gran % (Auto) 0.3 % Neut % (Auto) 72.3 % Lymph % (Auto) 14.7 % Pike % (Auto) 10.6 % Eos % (Auto) 1.8 % Baso % (Auto) 0.3 % Neut # (Auto) 5.57 (1.4-6.5) K/uL Lymph # (Auto) 1.13 L (1.2-3.4) K/uL Pike # (Auto) 0.82 H (0.11-0.59) K/uL Eos # (Auto) 0.14 (0-0.5) K/uL Baso # (Auto) 0.02 (0-0.2) K/uL Immature Gran # (Auto) 0.02 (0.00-0.02) K/uL ESR (0-20) mm/hr Sodium (136-145) mmol/L Potassium (3.5-5.1) mmol/L Chloride (98-107) mmol/L Carbon Dioxide (21-32) mmol/L Anion Gap (3-11) BUN (7-18) mg/dl Creatinine (0.6-1.4) mg/dl Est Cr Clr Drug Dosing ml/min Est GFR ( Amer) ml/min Est GFR (Non-Af Amer) ml/min BUN/Creatinine Ratio (10-20) Glucose (70-99) mg/dl Calcium (8.5-10.1) mg/dl Total Bilirubin (0.2-1) mg/dl AST (15-37) U/L ALT (12-78) U/L Alkaline Phosphatase (45-117) U/L C-Reactive Protein (0-0.29) mg/dl Total Protein (6.4-8.2) gm/dl Albumin (3.4-5.0) gm/dl Globulin (2.5-4.0) gm/dl Albumin/Globulin Ratio (0.9-2) Fluid Comment Synovial Source Synovial Color Synovial Appearance Synovial WBC (0-200) /ul Synovial RBC /uL Synovial Polynuclear % % Synovial Mononuclear % % Synovial Crystals COVID-19 Eval Order Covid19 at [facility] SARS-CoV-2 (PCR) NEGATIVE (Negative) Blood Type Antibody Screen 06/07/21 06/07/21 06/07/21 Range/Units 08:34 08:34 09:03 WBC (4.8-10.8) K/uL RBC (4.7-6.1) M/uL Hgb (14.0-18.0) g/dL Hct (42-52) % MCV (80-100) fL MCH (25-34) pg MCHC (32-36) g/dL RDW Std Deviation (36.4-46.3) fL RDW Coeff of [place]ore[place] (11.5-14.5) % Plt Count (130-400) K/uL MPV (7.4-10.4) fL Immature Gran % (Auto) % Neut % (Auto) % Lymph % (Auto) % Pike % (Auto) % Eos % (Auto) % Baso % (Auto) % Neut # (Auto) (1.4-6.5) K/uL Lymph # (Auto) (1.2-3.4) K/uL Pike # (Auto) (0.11-0.59) K/uL Eos # (Auto) (0-0.5) K/uL Baso # (Auto) (0-0.2) K/uL Immature Gran # (Auto) (0.00-0.02) K/uL ESR 82 H (0-20) mm/hr Sodium 139 (136-145) mmol/L Potassium 4.1 (3.5-5.1) mmol/L Chloride 107 (98-107) mmol/L Carbon Dioxide 24 (21-32) mmol/L Anion Gap 8.0 (3-11) BUN 15 (7-18) mg/dl Creatinine 0.70 (0.6-1.4) mg/dl Est Cr Clr Drug Dosing 141.8 ml/min Est GFR ( Amer) 114.8 ml/min Est GFR (Non-Af Amer) 99.0 ml/min BUN/Creatinine Ratio 21.9 H (10-20) Glucose 102 H (70-99) mg/dl Calcium 9.5 (8.5-10.1) mg/dl Total Bilirubin 1.0 (0.2-1) mg/dl AST 19 (15-37) U/L ALT 17 (12-78) U/L Alkaline Phosphatase 128 H (45-117) U/L C-Reactive Protein 14.30 H (0-0.29) mg/dl Total Protein 7.9 (6.4-8.2) gm/dl Albumin 2.5 L (3.4-5.0) gm/dl Globulin 5.4 H (2.5-4.0) gm/dl Albumin/Globulin Ratio 0.5 L (0.9-2) Fluid Comment Synovial Source Synovial Color Synovial Appearance Synovial WBC (0-200) /ul Synovial RBC /uL Synovial Polynuclear % % Synovial Mononuclear % % Synovial Crystals COVID-19 Eval Order SARS-CoV-2 (PCR) (Negative) Blood Type A Positive Antibody Screen NEGATIVE 06/07/21 06/07/21 Range/Units 09:08 09:08 WBC (4.8-10.8) K/uL RBC (4.7-6.1) M/uL Hgb (14.0-18.0) g/dL Hct (42-52) % MCV (80-100) fL MCH (25-34) pg MCHC (32-36) g/dL RDW Std Deviation (36.4-46.3) fL RDW Coeff of [place] (11.5-14.5) % Plt Count (130-400) K/uL MPV (7.4-10.4) fL Immature Gran % (Auto) % Neut % (Auto) % Lymph % (Auto) % Pike % (Auto) % Eos % (Auto) % Baso % (Auto) % Neut # (Auto) (1.4-6.5) K/uL Lymph # (Auto) (1.2-3.4) K/uL Pike # (Auto) (0.11-0.59) K/uL Eos # (Auto) (0-0.5) K/uL Baso # (Auto) (0-0.2) K/uL Immature Gran # (Auto) (0.00-0.02) K/uL ESR (0-20) mm/hr Sodium (136-145) mmol/L Potassium (3.5-5.1) mmol/L Chloride (98-107) mmol/L Carbon Dioxide (21-32) mmol/L Anion Gap (3-11) BUN (7-18) mg/dl Creatinine (0.6-1.4) mg/dl Est Cr Clr Drug Dosing ml/min Est GFR ( Amer) ml/min Est GFR (Non-Af Amer) ml/min BUN/Creatinine Ratio (10-20) Glucose (70-99) mg/dl Calcium (8.5-10.1) mg/dl Total Bilirubin (0.2-1) mg/dl AST (15-37) U/L ALT (12-78) U/L Alkaline Phosphatase (45-117) U/L C-Reactive Protein (0-0.29) mg/dl Total Protein (6.4-8.2) gm/dl Albumin (3.4-5.0) gm/dl Globulin (2.5-4.0) gm/dl Albumin/Globulin Ratio (0.9-2) Fluid Comment Synovial Source KNEE Synovial Color NAIF Synovial Appearance TURBID Synovial WBC 876280 H (0-200) /ul Synovial RBC 812297 /uL Synovial Polynuclear % 97.1 % Synovial Mononuclear % 2.9 % Synovial Crystals COVID-19 Eval Order SARS-CoV-2 (PCR) (Negative) Blood Type Antibody Screen Administered Medications Sodium Chloride (Nss 1000ml) 1,000 mls @ 75 mls/hr IV .[id number] VÍCTOR Stop: 07/07/21 08:44 Last Admin: 06/07/21 10:02 Dose: 75 mls/hr Documented by: [id number] Discontinued Medications Cefazolin Sodium (Ancef 2000mg) 2,000 mg in 15 mls @ 3.75 mls/min IV NOW STA Stop: 06/07/21 07:31 Last Admin: 06/07/21 09:57 Dose: 3.75 mls/min Documented by: [id number] Vancomycin HCl 2,500 mg/ (Sodium Chloride) 550 mls @ 180 mls/hr IV NOW STA Stop: 06/07/21 12:06 Last Admin: 06/07/21 10:55 Dose: 180 mls/hr Documented by: [id number] Imaging Data Radiologist's Impression: Knee X-Ray 06/07/21 08:37 XR knee LT 1 or 2V routine CLINICAL HISTORY: r/o loosening of TKA prosthesis COMPARISON STUDY: Left knee 04/12/2021. FINDINGS: There is again noted a left total knee arthroplasty. The hardware remains intact. No abnormal periprosthetic lucency. Diffuse swelling/edema within the left knee. There is a small left knee effusion. No fracture or dislocation. IMPRESSION: 1. Diffuse soft tissue swelling within the left knee with a small effusion. 2. Left total knee arthroplasty. The hardware appears intact. ACT 112: Negative or not required by law. Electronically signed by: Nj Pardo M.D. 06/07/2021 9:39 AM Venous Doppler Study 06/07/21 08:37 ULTRASOUND LEFT LOWER EXTREMITY VENOUS CLINICAL HISTORY: Left calf edema. COMPARISON STUDY: No priors. TECHNIQUE: Real-time, grayscale, and color Doppler sonography of the deep veins of the left lower extremity was performed from the inguinal crease to the calf. Compression and augmentation were utilized. FINDINGS: There is no sonographic evidence of deep venous thrombosis identified in the left lower extremity. The common femoral, superficial femoral, and popliteal veins are patent and normally compressible. The greater saphenous vein and the profunda femoris vein at the junction with the common femoral vein are clear. The visualized calf veins are patent. Soft tissue edema is noted in the calf. IMPRESSION: There is no sonographic evidence of deep venous thrombosis identified in the left lower extremity. ACT 112: Negative or not required by law. Electronically signed by: Romeo Carrillo M.D. 06/07/2021 10:56 AM Chest X-Ray 06/07/21 08:47 XR chest 2V PA/lateral HISTORY: Preop. Knee pain and infection. COMPARISON: Chest 11/02/2020. FINDINGS: The cardiac silhouette remains mildly enlarged. No pneumothorax or no pleural effusions. No new focal lung consolidations to suggest pneumonia. No evidence for pulmonary edema. Mild chronic interstitial thickening persists. Cervical spinal fusion hardware is again noted. IMPRESSION: No significant change compared to the prior study. No acute process. ACT 112: Negative or not required by law. Electronically signed by: Nj Pardo M.D. 06/07/2021 11:07 AM Discharge Plan Visit Data Chief Complaint: Infection Stated Complaint: INFECTION IN LEFT KNEE - DR VILLATORO ED Provider: [facility] ED Midlevel Provider: June Harrison Discharge Problem: Infection of total left knee replacement Patient Disposition: Admitted As Inpatient Discharge Instructions Interventions: ED Discharge Assessment Last Done: 06/07/21 11:08 Discharge Problem: Infection of total left knee replacement Qualifiers: Encounter type: initial encounter Qualified Code(s): T84.54XA - Infection and inflammatory reaction due to internal left knee prosthesis, initial encounter
[2021-06-07] MEDS ORDERED: ONDANSETRON INJ 2 MG/ML 2 ML VIAL IV PRN ×2 (08:40→12:06)
[2021-06-07 08:52] LABS: Basophils # (auto) 0.02 K/uL (0-0.2); Basophils % (auto) 0.3 %; Eosinophils # (auto) 0.14 K/uL (0-0.5); Eosinophils % (auto) 1.8 %; Hematocrit (blood only) 33.8 % (42-52); Hemoglobin 10.8 g/dL (14.0-18.0); Immature Granulocytes # (auto) 0.02 K/uL (0.00-0.02); Immature Granulocytes % (auto) 0.3 %; Lymphocytes # (auto) 1.13 K/uL (1.2-3.4); Lymphocytes % (auto) 14.7 %; Mean Corpuscular Hemoglobin 29.8 pg (25-34); Mean Corpuscular Volume 93.4 fL (80-100); Mean Platelet Volume 9.4 fL (7.4-10.4); Monocytes # (auto) 0.82 K/uL (0.11-0.59); Monocytes % (auto) 10.6 %; Neutrophils # (auto) 5.57 K/uL (1.4-6.5); Neutrophils % (auto) 72.3 %; Platelet Count 284 K/uL (130-400); RDW Coefficient of Variation 14.6 % (11.5-14.5); RDW Standard Deviation 49.7 fL (36.4-46.3); Red Blood Count 3.62 M/uL (4.7-6.1)
[2021-06-07] MEDS ORDERED: VANCOMYCIN CONSULT ACTIVE PRN (08:54)
[2021-06-07] MEDS ORDERED: ACETAMINOPHEN 500 MG TAB PO PRN (08:54)
[2021-06-07] MEDS ORDERED: oxyCODONE HCL IR 5 MG TAB (IMMEDIATE RELEASE) PO PRN (08:54)
--- NOTE | 2021-06-07 08:59 | History & Physical Report ---
Date of Service June 07, 2021 Assessment & Plan (1) Infection of total left knee replacement: Plan: Rule out infection left TKA. Patient clinically appears to have an infected left TKA. At the request of Dr. Villatoro, aspiration of the left knee was planned. I di scussed with the patient risks and benefits of the aspiration including but not limited to bleeding, neurovascular injury, and possible further infection. Patient was in agreement to have his left knee aspirated. At that time, a superior lateral aspiration site was chosen and cleansed with 2 alcohol swabs and 3 Betadine swabs and let the dry. An 18-gauge needle was then inserted into the suprapatellar pouch and 18 cc of thickened, bloody fluid was aspirated. The needle was then removed and pressure was applied with a 4 x 4 over the aspiration site for approximately 30 seconds. Patient tolerated the aspiration well. Aspiration contents was sent for cell count, crystal analysis, culture and sensitivity. CBC, chemistry, ESR, and CRP were ordered. Blood cultures were also ordered. Sed rate currently 82. CRP 14.30. X-ray of the left knee was ordered as well as ultrasound of the left lower extremity to rule out DVT. Patient will be admitted under Dr. Villatoro service. Consult was placed for [facility] center hospitalist service. Patient will be started on IV vancomycin. Pending culture results of the aspirate, patient will possibly need to undergo explant of his left total knee arthroplasty with implantation of articulated antibiotic spacer. This has been discussed with the patient and he is in agreement with this plan. History of Present Illness Chief Complaint: Left knee pain Primary Care Provider: Chalo Anderson Patient is a 66-year-old white male known to our practice who is status post left total knee arthroplasty in November 2020. Patient had a normal postoperative recovery however in March 2021, he was found to have MSSA infection of the left TKA. At that time he underwent open irrigation debridement with a placement of a PICC line prior to discharge and was discharged home on IV antibiotics for 6 weeks with follow-up with infectious disease from [facility] service. Patient states that he had just finished his antibiotics approximately 1-1/2 weeks ago. He states that he had a follow-up appointment with infectious disease this coming Monday with the possibility of being started on oral antibiotics. He states that this past Monday he began noticing some increased discomfort in his left knee. He began having increased swelling of the left knee and the pain continued to worsen. He had difficulty with weightbearing on ambulation. He states he was been able to bend the knee however its been mild to moderately painful in doing so. He denies any fevers, chills, nausea or vomiting at home. Denies any flu or cold-like symptoms and no increased cough or sputum production. Denies shortness of breath. He decided to go the emergency room and [facility] where he resides, over this past weekend[place] [facility] [place] transferred [place] to [facility] however there was no beds available. He was then discharged in the emergency room at [facility] on oral antibiotics and came down to [facility] emergency room. Currently he is lying in his bed awake and alert. He complains of left knee pain. Currently denies fevers, chills, nausea or vomiting. He states he feels fairly well overall other than his left knee pain. Allergies Allergy/AdvReac Type Severity Reaction Status Date / Time No Known Allergies Unverified 06/07/21 07:51 Home Medications Medication Instructions Recorded Confirmed Type allopurinol 300 mg tablet 300 mg PO QAM 10/26/20 06/07/21 History atorvastatin 20 mg tablet 20 mg PO QPM 10/26/20 06/07/21 History baclofen 10 mg tablet 10 mg PO BID 10/26/20 06/07/21 History bumetanide 0.5 mg tablet 0.5 mg PO BID 10/26/20 06/07/21 History buspirone 30 mg tablet 30 mg PO BID 10/26/20 06/07/21 History duloxetine 60 mg capsule,delayed 60 mg PO BID 10/26/20 06/07/21 History release gabapentin 600 mg tablet,extended 600 mg PO BID 10/26/20 06/07/21 History release 24 hr levocetirizine 5 mg tablet 5 mg PO QAM 10/26/20 06/07/21 History lisinopril 5 mg tablet 5 mg PO QAM 10/26/20 06/07/21 History montelukast 10 mg tablet 10 mg PO HS 10/26/20 06/07/21 History pantoprazole 40 mg tablet,delayed 40 mg PO QPM 10/26/20 06/07/21 History release (Protonix) primidone 50 mg tablet 50 mg PO DAILY 10/26/20 06/07/21 History propranolol 80 mg tablet 80 mg PO QAM 10/26/20 06/07/21 History tamsulosin 0.4 mg capsule 0.4 mg PO QAM 10/26/20 06/07/21 History topiramate 100 mg tablet 100 mg PO HS 10/26/20 06/07/21 History trazodone 100 mg tablet 100 mg PO HS 10/26/20 06/07/21 History cholecalciferol (vitamin D3) 50 100 mcg PO DAILY 06/07/21 06/07/21 History mcg (2,000 unit) capsule (Vitamin D3) ferrous sulfate 134 mg (27 mg 0 mg PO DAILY 06/07/21 06/07/21 History iron) tablet meloxicam 7.5 mg tablet 7.5 mg PO BID 06/07/21 06/07/21 History Past Med/Surg History Medical History (Updated 06/07/21 @ 09:17 by Brayan Henao PA-C) Anxiety BPH (benign prostatic hyperplasia) Chronic back pain Depression GERD (gastroesophageal reflux disease) Hx of bladder cancer 2018 had chemo in bladder and no problem since Hyperlipidemia Hypertension Nonobstructive atherosclerosis of coronary artery Per review of [facility] records, non-obstructive CAD by 2008 heart cath. Cardiac cath done 05/31/10 at [facility] for NSTEMI with chest pain following a back surgery done at [facility] (POD1). 2009 cath also showed nonobstructive CAD, ACS ruled out, medically managed for risk factor modification. Echo done 06/01/10 showed preserved EF 55-60%. NSTEMI (non-ST elevated myocardial infarction) 2009, POD1 after back surgery, transferred from [facility] to [facility] for cath. Cath n onobstructive. Osteoarthritis PONV (postoperative nausea and vomiting) Sleep apnea no device Surgical History (Updated 06/07/21 @ 09:17 by Brayan Henao PA-C) History of arthroscopy of left knee History of cardiac cath [place] 2012, "mild." No stents. History of open reduction and internal fixation (ORIF) procedure right arm History of rotator cuff surgery History of total left knee replacement Hx laparoscopic cholecystectomy Hx of arthroscopy of shoulder Hx of bilateral cataract extraction Hx of colonoscopy Hx of cystoscopy Hx of esophagogastroduodenoscopy Hx of fusion of cervical spine Hx of gastric bypass states gastric sleeve 2013 - lost 60'pema pounds Hx of tonsillectomy Social History Smoking Status: Never smoker Second Hand Exposure: No; Hx Alcohol Use: Yes Alcohol type: beer and wine Hx Substance Use: No Preferred Language: Greek Communication Ability: Effective 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 Beliefs That Will Affect Care: None marital status: Current Living Situation: Family Feels Safe at Home: Yes Assistive Devices: Walker Review of Systems Review of Systems: All systems reviewed & are unremarkable except as noted in HPI & below Physical Exam Constitutional: WD/WN, vitals as above Eyes: PERRL, conjunctivae normal, anicteric sclerae ENMT: external ear and nose normal, oropharynx normal Neck: trachea midline, no thyromegaly Respiratory: normal respiratory effort, lungs clear to auscultation Cardiovascular: RRR, no murmur, no edema Gastrointestinal (Abdomen): normal bowel sounds, soft, nontender, no hepatosplenomegaly Musculoskeletal: On examination of his left knee, he has a well-healed incision from his previous irrigation debridement. The knee is swollen compared to the right knee. The left knee feels warmer to touch than the right knee. I am able to take him through gentle range of motion of the left knee with mild to moderate pain in the knee itself. Axial loading does cause him increased pain in the knee itself. Palpation over the patella mostly causes some discomfort. Left calf is slightly tender on palpation and has increased pain with passive dorsiflexion of the left ankle. He also has increased pain with the passive dorsiflexion of the ankle of the knee. Left ankle is nontender on palpation. Venous stasis changes noted on both lower extremities. Pulses faint but palpable bilaterally of the DPP. Capillary refill is less than 2 seconds. Denies numbness or tingling in the feet at this time. Range of motion of both ankles is intact. Right lower extremity is unaffected and range of motion is within normal limits. He does complain of some mild right knee pain which she states he has had since having to be more weightbearing on the right side secondary to his left knee pain. Upper extremities are unaffected and he is nontender at the shoulders, elbows, and wrist. There is no gross motor or sensory loss seen at this time. Skin: no rashes, warm and dry Results & Data Results & Data ([facility]) Vital Signs (Past 12 Hours) Vital Signs Temp Pulse Pulse Resp BP BP Pulse Ox 06/07/21 07:45 78 20 06/07/21 07:37 74 22 141/68 H 98 06/07/21 06:57 36.5 C 85 20 134/78 98 Laboratory Results Laboratory Results WBC 7.70 K/uL (4.8-10.8) 06/07/21 08:34 RBC 3.62 M/uL (4.7-6.1) L 06/07/21 08:34 Hgb 10.8 g/dL (14.0-18.0) L 06/07/21 08:34 Hct 33.8 % (42-52) L 06/07/21 08:34 MCV 93.4 fL (80-100) 06/07/21 08:34 MCH 29.8 pg (25-34) 06/07/21 08:34 MCHC 32.0 g/dL (32-36) 06/07/21 08:34 RDW Std Deviation 49.7 fL (36.4-46.3) H 06/07/21 08:34 RDW Coeff of [place] 14.6 % (11.5-14.5) H 06/07/21 08:34 Plt Count 284 K/uL (130-400) 06/07/21 08:34 MPV 9.4 fL (7.4-10.4) 06/07/21 08:34 Immature Gran % (Auto) 0.3 % 06/07/21 08:34 Neut % (Auto) 72.3 % 06/07/21 08:34 Lymph % (Auto) 14.7 % 06/07/21 08:34 Lynn % (Auto) 10.6 % 06/07/21 08:34 Eos % (Auto) 1.8 % 06/07/21 08:34 Baso % (Auto) 0.3 % 06/07/21 08:34 Neut # (Auto) 5.57 K/uL (1.4-6.5) 06/07/21 08:34 Lymph # (Auto) 1.13 K/uL (1.2-3.4) L 06/07/21 08:34 Lynn # (Auto) 0.82 K/uL (0.11-0.59) H 06/07/21 08:34 Eos # (Auto) 0.14 K/uL (0-0.5) 06/07/21 08:34 Baso # (Auto) 0.02 K/uL (0-0.2) 06/07/21 08:34 Immature Gran # (Auto) 0.02 K/uL (0.00-0.02) 06/07/21 08:34 ESR 82 mm/hr (0-20) H 06/07/21 08:34 Sodium 139 mmol/L (136-145) 06/07/21 08:34 Potassium 4.1 mmol/L (3.5-5.1) 06/07/21 08:34 Chloride 107 mmol/L (98-107) 06/07/21 08:34 Carbon Dioxide 24 mmol/L (21-32) 06/07/21 08:34 Anion Gap 8.0 (3-11) 06/07/21 08:34 BUN 15 mg/dl (7-18) 06/07/21 08:34 Creatinine 0.70 mg/dl (0.6-1.4) 06/07/21 08:34 Est Cr Clr Drug Dosing 141.8 ml/min 06/07/21 08:34 Est GFR ( Amer) 114.8 ml/min 06/07/21 08:34 Est GFR (Non-Af Amer) 99.0 ml/min 06/07/21 08:34 BUN/Creatinine Ratio 21.9 (10-20) H 06/07/21 08:34 Glucose 102 mg/dl (70-99) H 06/07/21 08:34 Calcium 9.5 mg/dl (8.5-10.1) 06/07/21 08:34 Total Bilirubin 1.0 mg/dl (0.2-1) 06/07/21 08:34 AST 19 U/L (15-37) 06/07/21 08:34 ALT 17 U/L (12-78) 06/07/21 08:34 Alkaline Phosphatase 128 U/L (45-117) H 06/07/21 08:34 C-Reactive Protein 14.30 mg/dl (0-0.29) H 06/07/21 08:34 Total Protein 7.9 gm/dl (6.4-8.2) 06/07/21 08:34 Albumin 2.5 gm/dl (3.4-5.0) L 06/07/21 08:34 Globulin 5.4 gm/dl (2.5-4.0) H 06/07/21 08:34 Albumin/Globulin Ratio 0.5 (0.9-2) L 06/07/21 08:34 Fluid Comment 06/07/21 09:08 COVID-19 Eval Order Covid19 at [facility] 06/07/21 08:00 SARS-CoV-2 (PCR) NEGATIVE (Negative) 06/07/21 08:00 Diagnostic Findings Name: ANJANA LAYNE Acct: [id number] [place] [facility] [place] 1955 [facility] [place] 06/07/21 Age: 66 Sex: M Dis Date: Loc: Ambulatory Services Unit Spec: [id number] Collected: 06/07/21 Received: 06/07/[address]: Brayan Henao, [place] Source: Knee,Left OV Order: Ordered: Aer/Olga Cult/Sm Procedure Result Verified Site Gram Stain Final 06/07/21 Gram Stain Result Many WBCs Seen Many Gram Positive Cocci Critical result called to RABIA SILVA On 06/07/21 at 1118 by Hector Kevin and results were verbalized back. Code Status & VTE Plan VTE Prophylaxis Plan VTE Prophylaxis will be ordered: Yes
[2021-06-07] MEDS ORDERED: VANCOMYCIN HCL 2,500 MG in SODIUM CHLORIDE 0.9% 500 ML IV STA (09:03)
[2021-06-07 09:17] LABS: Albumin Level 2.5 gm/dl (3.4-5.0); BUN Creatinine Ratio 21.9 (10-20); C Reactive Protein 14.3 mg/dl (0-0.29); Calcium 9.5 mg/dl (8.5-10.1); Creatinine Clr Calc Pharmacy 141.8 ml/min; Est GFR (African American) 114.8 ml/min; Potassium 4.1 mmol/L (3.5-5.1)
[2021-06-07 09:20] LABS: Albumin Globulin Ratio 0.5 (0.9-2); Globulin 5.4 gm/dl (2.5-4.0); Total Protein 7.9 gm/dl (6.4-8.2)
--- NOTE | 2021-06-07 09:41 | XRay Report ---
XR knee LT 1 or 2V routine CLINICAL HISTORY: r/o loosening of TKA prosthesis COMPARISON STUDY: Left knee 04/12/2021. FINDINGS: There is again noted a left total knee arthroplasty. The hardware remains intact. No abnorm al periprosthetic lucency. Diffuse swelling/edema within the left knee. There is a small left knee ef fusion. No fracture or dislocation. IMPRESSION: 1. Diffuse soft tissue swelling within the left knee with a small effusion. 2. Left total knee arthroplasty. The hardware appears intact. ACT 112: Negative or not required by law. Electronically signed by: Nj Pardo M.D. 06/07/2021 9:39 AM
[2021-06-07 09:59] LABS: Appearance Synovial Fluid TURBID; Color Synovial Fluid AMBER; Mononuclear WBC Synovial 2.9 %; Polynuclear WBC Synovial 97.1 %; RBC Synovial Fluid (A) 210000 /uL; Source Synovial Fluid KNEE; WBC Synovial Fluid (A) 117302 /ul (0-200)
[2021-06-07] MEDS: SODIUM CHLORIDE 0.9% 1000ML 1,000 ML IV SCH (10:02)
--- NOTE | 2021-06-07 10:13 | Consultation ---
Date of Consultation June 07, 2021 Assessment & Plan (1) Infection of total left knee replacement: s/p I/D on 04/12/21 during prior hospitalization. Cultures with MSSA. s/p 6-week course of IV antibiotic therapy. Despite such he has ongoing septic left total knee. Arthrocentesis / synovial fluid analysis c/w septic knee; gram stain + for GPC which is likely to be MSSA. s/p OR today for explantation of L TKR hardware, abx spacer implantation, etc. Defer management to ortho. Cont ancef. Follow all cultures. Will call [facility] tomorrow am to see if there are any blood cultures from the weekend. (2) Sleep apnea: not on Rx for such (3) Nonobstructive atherosclerosis of coronary artery: h/o NSTEMI but, by history, cath without obstructive CAD?? Remains on asa, statin, etc. No ischemic symptoms at this time. (4) Hypertension: Hold bumex Hold ERUM Check bmp am; ensure stable creatinine (5) Hyperlipidemia: statin (6) GERD (gastroesophageal reflux disease): PPI daily (7) Anxiety: Cont all home meds (8) BPH (benign prostatic hyperplasia): Cont flomax Thank you for this consult. We will follow with you. History of Present Illness Requesting Physician: Anand Villatoro DO Reason for Consultation: post-op medical management Attending Physician: Anand Villatoro DO History of Present Illness Pleasant 66yo male with HTN, gastric sleeve procedure, GERD, depression/anxiety, BPH, HUMBERTO, and prior T2DM (resolved following gastric sleeve procedure) who presented today to the ER with 1 week of ongoing left knee redness, swelling, and pain. He also had chills intermittently over the last week. The patient has a h/o left TKR on 12/01/20 at [facility]. Did well with his knee replacement until he was hospitalized at [facility] for left septic knee from 04/11 to 04/15 and underwent L knee I/D with Polyexchange on 04/12. The culprit pathogen was MSSA. He received a 6-week course of IV antibiotics - mainly IV ancef and completed those antibiotics in early May. About 1 week ago he developed the left knee swelling and pain. He went to the [facility] Monday pm and was there into Monday am. A transfer was requested to [facility] from the [place] [facility] but no beds were available at that time. He is uncertain if he had blood cultures drawn during that ER visit. He did not undergo a knee arthrocentesis. Upon ER presentation today he underwent arthrocentesis of the knee yielding >100,000 WBCs with + gram stain for GPC. Subsequently he went to the OR with Dr Villatoro for explantation of all TKR compone nts and placement of abx spacer. I saw Mr Abdi post-op on the orthopedic floor and he was resting comfortably. He had no major complaints during my visit. Allergies Allergy/AdvReac Type Severity Reaction Status Date / Time No Known Allergies Unverified 06/07/21 07:51 Home Medications Medication Instructions Recorded Confirmed Type allopurinol 300 mg tablet 300 mg PO QAM 10/26/20 06/07/21 History atorvastatin 20 mg tablet 20 mg PO QPM 10/26/20 06/07/21 History baclofen 10 mg tablet 10 mg PO BID 10/26/20 06/07/21 History bumetanide 0.5 mg tablet 0.5 mg PO BID 10/26/20 06/07/21 History buspirone 30 mg tablet 30 mg PO BID 10/26/20 06/07/21 History duloxetine 60 mg capsule,delayed 60 mg PO BID 10/26/20 06/07/21 History release gabapentin 600 mg tablet,extended 600 mg PO BID 10/26/20 06/07/21 History release 24 hr levocetirizine 5 mg tablet 5 mg PO QAM 10/26/20 06/07/21 History lisinopril 5 mg tablet 5 mg PO QAM 10/26/20 06/07/21 History montelukast 10 mg tablet 10 mg PO HS 10/26/20 06/07/21 History pantoprazole 40 mg tablet,delayed 40 mg PO QPM 10/26/20 06/07/21 History release (Protonix) primidone 50 mg tablet 50 mg PO DAILY 10/26/20 06/07/21 History propranolol 80 mg tablet 80 mg PO QAM 10/26/20 06/07/21 History tamsulosin 0.4 mg capsule 0.4 mg PO QAM 10/26/20 06/07/21 History topiramate 100 mg tablet 100 mg PO HS 10/26/20 06/07/21 History trazodone 100 mg tablet 100 mg PO HS 10/26/20 06/07/21 History cholecalciferol (vitamin D3) 50 100 mcg PO DAILY 06/07/21 06/07/21 History mcg (2,000 unit) capsule (Vitamin D3) ferrous sulfate 134 mg (27 mg 0 mg PO DAILY 06/07/21 06/07/21 History iron) tablet meloxicam 7.5 mg tablet 7.5 mg PO BID 06/07/21 06/07/21 History Patient History Medical History Anxiety BPH (benign prostatic hyperplasia) Chronic back pain Depression GERD (gastroesophageal reflux disease) Hx of bladder cancer 2018 had chemo in bladder and no problem since Hyperlipidemia Hypertension Nonobstructive atherosclerosis of coronary artery Per review of [facility] records, non-obstructive CAD by 2008 heart cath. Cardiac cath done 05/31/10 at [facility] for NSTEMI with chest pain following a back surgery done at [facility] (POD1). 2009 cath also showed nonobstructive CAD, ACS ruled out, medically managed for risk factor modification. Echo done 06/01/10 showed preserved EF 55-60%. NSTEMI (non-ST elevated myocardial infarction) 2009, POD1 after back surgery, transferred from [facility] to [facility] for cath. Cath nonobstructive. Osteoarthritis PONV (postoperative nausea and vomiting) Sleep apnea no device Surgical History History of arthroscopy of left knee History of cardiac cath [place] 2012, "mild." No stents. History of open reduction and internal fixation (ORIF) procedure right arm History of rotator cuff surgery History of total left knee replacement Hx laparoscopic cholecystectomy Hx of arthroscopy of shoulder Hx of bilateral cataract extraction Hx of colonoscopy Hx of cystoscopy Hx of esophagogastroduodenoscopy Hx of fusion of cervical spine Hx of gastric bypass states gastric sleeve 2012 - lost 60'pema pounds Hx of tonsillectomy Family History (Updated 06/07/21 @ 19:30 by Giancarlo Perez) Father Colorectal cancer Mother Congestive heart disease Social History (Updated 06/07/21 @ 19:30 by Giancarlo Perez) Smoking Status: Never smoker Second Hand Exposure: No; Hx Alcohol Use: Yes Alcohol type: beer and wine Hx Substance Use: No Preferred Language: Greek Communication Ability: Effective Inspector Experimental Assembly Required: No Beliefs That Will Affect Care: None marital status: marital status details: lives with in [place] Current Living Situation: Spouse current occupational status: retired 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; 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[employer] in [facility] How many Children do You have: 0 Other Information That Helps Us Care for You: No Feels Safe at Home: Yes Safety Concerns: Feels Safe At This Time Assistive Devices: Cane and Walker Review of Systems Review of Systems: gen - no fever, but has had chills along with poor appetite; no weight loss eyes - no visual change HENT - no ear pain, sore throat or congestion pulm - no cough or dyspnea chest/CV - no chest pain GI - no N/V or abd pain - no voiding symptoms musculo - left knee pain with swelling skin - no generalized rash neuro - no focal motor weakness psych - chronic depression/anxiety endo - denies any current diabetes Physical Exam Physical Exam: gen - NAD, tired-appearing eyes - lens implants b/l, PERRL mouth - MMM neck - supple, no lymph nodes, no JVD heart - RRR, s1 s2, no murmur lungs - CTA b/l abd - soft NT ND BS+; ?splenomegaly musculo - left knee/leg in large brace; drain in place left knee skin - no pallor or rash neuro - motor 5/5 x 4 exts psych - a/o x 3 Results & Data ([facility]) Vital Signs (Past 12 Hours) Vital Signs Temp Pulse Pulse Resp BP BP Pulse Ox 06/07/21 10:02 76 22 138/73 99 06/07/21 07:45 78 20 06/07/21 07:37 74 22 141/68 H 98 06/07/21 06:57 36.5 C 85 20 134/78 98 Laboratory Results Laboratory Results - last 24 hr 06/07/21 06/07/21 06/07/21 08:00 08:00 08:34 WBC 7.70 RBC 3.62 L Hgb 10.8 L Hct 33.8 L MCV 93.4 MCH 29.8 MCHC 32.0 RDW Std Deviation 49.7 H RDW Coeff of [place] 14.6 H Plt Count 284 MPV 9.4 Immature Gran % (Auto) 0.3 Neut % (Auto) 72.3 Lymph % (Auto) 14.7 [place] % (Auto) 10.6 Eos % (Auto) 1.8 Baso % (Auto) 0.3 Neut # (Auto) 5.57 Lymph # (Auto) 1.13 L [place] # (Auto) 0.82 H Eos # (Auto) 0.14 Baso # (Auto) 0.02 Immature Gran # (Auto) 0.02 ESR Sodium Potassium Chloride Carbon Dioxide Anion Gap BUN Creatinine Est Cr Clr Drug Dosing Est GFR ( Amer) Est GFR (Non-Af Amer) BUN/Creatinine Ratio Glucose Calcium Total Bilirubin AST ALT Alkaline Phosphatase C-Reactive Protein Total Protein Albumin Globulin Albumin/Globulin Ratio Fluid Comment Synovial Source Synovial Color Synovial Appearance Synovial WBC Synovial RBC Synovial Polynuclear % Synovial Mononuclear % Synovial Crystals COVID-19 Eval Order Covid19 at [facility] SARS-CoV-2 (PCR) NEGATIVE Blood Type Antibody Screen 06/07/21 06/07/21 06/07/21 08:34 08:34 09:03 WBC RBC Hgb Hct MCV MCH MCHC RDW Std Deviation RDW Coeff of [place] Plt Count MPV Immature Gran % (Auto) Neut % (Auto) Lymph % (Auto) [place] % (Auto) Eos % (Auto) Baso % (Auto) Neut # (Auto) Lymph # (Auto) [place] # (Auto) Eos # (Auto) Baso # (Auto) Immature Gran # (Auto) ESR 82 H Sodium 139 Potassium 4.1 Chloride 107 Carbon Dioxide 24 Anion Gap 8.0 BUN 15 Creatinine 0.70 Est Cr Clr Drug Dosing 141.8 Est GFR ( Amer) 114.8 Est GFR (Non-Af Amer) 99.0 BUN/Creatinine Ratio 21.9 H Glucose 102 H Calcium 9.5 Total Bilirubin 1.0 AST 19 ALT 17 Alkaline Phosphatase 128 H C-Reactive Protein 14.30 H Total Protein 7.9 Albumin 2.5 L Globulin 5.4 H Albumin/Globulin Ratio 0.5 L Fluid Comment Synovial Source Synovial Color Synovial Appearance Synovial WBC Synovial RBC Synovial Polynuclear % Synovial Mononuclear % Synovial Crystals COVID-19 Eval Order SARS-CoV-2 (PCR) Blood Type A Positive Antibody Screen NEGATIVE 06/07/21 06/07/21 09:08 09:08 WBC RBC Hgb Hct MCV MCH MCHC RDW Std Deviation RDW Coeff of [place] Plt Count MPV Immature Gran % (Auto) Neut % (Auto) Lymph % (Auto) [place] % (Auto) Eos % (Auto) Baso % (Auto) Neut # (Auto) Lymph # (Auto) [place] # (Auto) Eos # (Auto) Baso # (Auto) Immature Gran # (Auto) ESR Sodium Potassium Chloride Carbon Dioxide Anion Gap BUN Creatinine Est Cr Clr Drug Dosing Est GFR ( Amer) Est GFR (Non-Af Amer) BUN/Creatinine Ratio Glucose Calcium Total Bilirubin AST ALT Alkaline Phosphatase C-Reactive Protein Total Protein Albumin Globulin Albumin/Globulin Ratio Fluid Comment Synovial Source KNEE Synovial Color NAIF Synovial Appearance TURBID Synovial WBC 767162 H Synovial RBC 541810 Synovial Polynuclear % 97.1 Synovial Mononuclear % 2.9 Synovial Crystals COVID-19 Eval Order SARS-CoV-2 (PCR) Blood Type Antibody Screen PG Care Time/CCT Total # of Minutes Spent Total Time Spent with Patient: Total time spent is greater than 50% in coordination of care (as documented) at patient's floor/unit and/or counseling patient: Coding Level of Care Code 46261 Subseq Hosp Care Lvl 3 Diagnoses Infection of total left knee replacement T84.54XA Encounter type: initial encounter Sleep apnea G47.30 Nonobstructive atherosclerosis of coronary artery I25.10 Hypertension I10 Hyperlipidemia E78.5 GERD (gastroesophageal reflux disease) K21.9 Anxiety F41.9 BPH (benign prostatic hyperplasia) N40.0 (1) Infection of total left knee replacement Encounter type: initial encounter Qualified Code(s): T84.54XA - Infection and inflammatory reaction due to internal left knee prosthesis, initial encounter
--- NOTE | 2021-06-07 10:57 | Ultrasound Report ---
ULTRASOUND LEFT LOWER EXTREMITY VENOUS CLINICAL HISTORY: Left calf edema. COMPARISON STUDY: No priors. TECHNIQUE: Real-time, grayscale, and color Doppler sonography of the deep veins of the left lower ext remity was performed from the inguinal crease to the calf. Compression and augmentation were utilized . FINDINGS: There is no sonographic evidence of deep venous thrombosis identified in the left lower ext remity. The common femoral, superficial femoral, and popliteal veins are patent and normally compress ible. The greater saphenous vein and the profunda femoris vein at the junction with the common femora l vein are clear. The visualized calf veins are patent. Soft tissue edema is noted in the calf. IMPRESSION: There is no sonographic evidence of deep venous thrombosis identified in the left lower e xtremity. ACT 112: Negative or not required by law. Electronically signed by: Romeo Carrillo M.D. 06/07/2021 10:56 AM
--- NOTE | 2021-06-07 11:08 | XRay Report ---
XR chest 2V PA/lateral HISTORY: Preop. Knee pain and infection. COMPARISON: Chest 11/02/2020. FINDINGS: The cardiac silhouette remains mildly enlarged. No pneumothorax or no pleural effusions. No new focal lung consolidations to suggest pneumonia. No evidence for pulmonary edema. Mild chronic in terstitial thickening persists. Cervical spinal fusion hardware is again noted. IMPRESSION: No significant change compared to the prior study. No acute process. ACT 112: Negative or not required by law. Electronically signed by: Nj Pardo M.D. 06/07/2021 11:07 AM
[2021-06-07] MEDS ORDERED: PROPOFOL IV EMULSION 10 MG/ML 20 ML VIAL IV ONE ×2 (11:10→12:47)
[2021-06-07] MEDS ORDERED: fentaNYL citrate 100 MCG/2 ML VIAL ONE ×3 (11:10→12:56)
[2021-06-07] MEDS ORDERED: MIDAZOLAM HCL 1 MG/ML 2ML VIAL ONE (11:10)
[2021-06-07] MEDS ORDERED: VANCOMYCIN HCL 1000MG/20ML VIAL ONE (11:51)
[2021-06-07] MEDS ORDERED: BUPIVACAINE 0.5 % 5 MG/1 ML MPF 30ML VIAL ONE (11:52)
[2021-06-07] MEDS ORDERED: EPINEPHrine INJ 1 MG/ML AMP ONE (11:52)
--- NOTE | 2021-06-07 12:00 | History & Physical Bridge Note ---
Date of Service June 07, 2021 History & Physical Bridge Note I have examined the patient, reviewed the History & Physical and in the interval since the performance of the History & Physical I have noted the following changes of clinical significance: no changes noted
--- NOTE | 2021-06-07 12:05 | Anesthesiology Consultation ---
Date of Service June 07, 2021 Assessment & Plan Chart Review Chart Review: Acceptable Risk for Surgery and Patient NOT seen in Pre Admission Testing Consults Requested none ASA ASA3 Proposed Anesthesia Anesthesia Type: General Risk / Benefits Reviewed With: PT / POA / Parent / Guardian, Accepts Plan and Informed Consent Obtained History Surgery Operation Date: 06/07/21 08:10 Proposed Procedures p Left Total Knee Explant Hardware Incision and Drainage, Implantation Articulated Antibiotic Spacer - Anand Villatoro DO Height/Weight Height: 6 ft 2 in Weight: 115 kg Allergies Allergy/AdvReac Type Severity Reaction Status Date / Time No Known Allergies Unverified 06/07/21 07:51 Medications Home Medications Medication Instructions Recorded Confirmed Last Taken allopurinol 300 mg tablet 300 mg PO QAM 10/26/20 06/07/21 1 Day Ago ~04/10/21 atorvastatin 20 mg tablet 20 mg PO QPM 10/26/20 06/07/21 1 Day Ago ~04/10/21 baclofen 10 mg tablet 10 mg PO BID 10/26/20 06/07/21 1 Day Ago ~04/10/21 bumetanide 0.5 mg tablet 0.5 mg PO BID 10/26/20 06/07/21 1 Day Ago ~04/10/21 buspirone 30 mg tablet 30 mg PO BID 10/26/20 06/07/21 1 Day Ago ~04/10/21 duloxetine 60 mg capsule,delayed 60 mg PO BID 10/26/20 06/07/21 2 Days Ago release ~04/09/21 gabapentin 600 mg tablet,extended 600 mg PO BID 10/26/20 06/07/21 1 Day Ago release 24 hr ~04/10/21 levocetirizine 5 mg tablet 5 mg PO QAM 10/26/20 06/07/21 2 Days Ago ~04/09/21 lisinopril 5 mg tablet 5 mg PO QAM 10/26/20 06/07/21 1 Day Ago ~04/10/21 montelukast 10 mg tablet 10 mg PO HS 10/26/20 06/07/21 1 Day Ago ~04/10/21 pantoprazole 40 mg tablet,delayed 40 mg PO QPM 10/26/20 06/07/21 1 Day Ago release (Protonix) ~04/10/21 primidone 50 mg tablet 50 mg PO DAILY 10/26/20 06/07/21 1 Day Ago ~04/10/21 propranolol 80 mg tablet 80 mg PO QAM 10/26/20 06/07/21 1 Day Ago ~04/10/21 tamsulosin 0.4 mg capsule 0.4 mg PO QAM 10/26/20 06/07/21 1 Day Ago ~04/10/21 topiramate 100 mg tablet 100 mg PO HS 10/26/20 06/07/21 2 Days Ago ~04/09/21 trazodone 100 mg tablet 100 mg PO HS 10/26/20 06/07/21 2 Days Ago ~04/09/21 cholecalciferol (vitamin D3) 50 100 mcg PO DAILY 06/07/21 06/07/21 Unknown mcg (2,000 unit) capsule (Vitamin D3) ferrous sulfate 134 mg (27 mg 0 mg PO DAILY 06/07/21 06/07/21 Unknown iron) tablet meloxicam 7.5 mg tablet 7.5 mg PO BID 06/07/21 06/07/21 Unknown Active Medications Generic Name Dose Route Start Last Admin Trade Name Freq PRN Reason Stop Dose Admin Sodium Chloride 1,000 mls @ 75 mls/hr 06/07/21 08:45 06/07/21 10:02 Nss 1000ml IV 07/07/21 08:44 75 mls/hr .[id number] VÍCTOR Administration Vancomycin HCl 2,500 mg/ 550 mls @ 180 mls/hr 06/07/21 09:03 06/07/21 10:55 Sodium Chloride IV 06/07/21 12:06 180 mls/hr NOW STA Administration NPO Date Last Intake of Fluids: 06/06/21 Time Last Intake of Fluids: 20:00 Date Last Intake of Solids: 06/06/21 Time Last Intake of Solids: 20:00 Past Medical History Medical History (Updated 06/07/21 @ 09:17 by Brayan Henao PA-C) Anxiety BPH (benign prostatic hyperplasia) Chronic back pain Depression GERD (gastroesophageal reflux disease) Hx of bladder cancer 2018 had chemo in bladder and no problem since Hyperlipidemia Hypertension Nonobstructive atherosclerosis of coronary artery Per review of [facility] records, non-obstructive CAD by 2008 heart cath. Cardiac cath done 05/31/10 at [facility] for NSTEMI with chest pain following a back surgery done at [facility] (POD1). 2010 cath also showed nonobstructive CAD, ACS ruled out, medically managed for risk factor modification. Echo done 06/01/10 showed preserved EF 55-60%. NSTEMI (non-ST elevated myocardial infarction) 2010, POD1 after back surgery, transferred from [facility] to [facility] for cath. Cath nonobstructive. Osteoarthritis PONV (postoperative nausea and vomiting) Sleep apnea no device Exercise / Class Metabolic Activity II 4-5 Yardwork/Stairs/Walk up hill Past Surgical History Surgical History (Updated 06/07/21 @ 09:17 by Brayan Henao PA-C) History of arthroscopy of left knee History of cardiac cath [place] 2012, "mild." No stents. History of open reduction and internal fixation (ORIF) procedure right arm History of rotator cuff surgery History of total left knee replacement Hx laparoscopic cholecystectomy Hx of arthroscopy of shoulder Hx of bilateral cataract extraction Hx of colonoscopy Hx of cystoscopy Hx of esophagogastroduodenoscopy Hx of fusion of cervical spine Hx of gastric bypass states gastric sleeve 2012 - lost 60'pema pounds Hx of tonsillectomy Past Anesthesia History No Hx of Anesthesia Complications and No Family Hx of Anesthesia Complications History of PONV No Hx of PONV and No Hx of Motion Sickness Social History Smoking Status: Never smoker Hx Alcohol Use: Yes Alcohol type: beer and wine alcohol intake frequency: a few times a month Hx Substance Use: No Physical Exam Vital Signs Last Vital Signs Temp 37.5 C 06/07/21 11:09 Pulse 81 06/07/21 11:09 Resp 18 06/07/21 11:09 BP 135/76 06/07/21 11:09 Pulse Ox 99 06/07/21 11:09 Constitutional + obese ENMT Mouth: no dentition abnormality Thyromental Distance: > or= 3.5 Finger Breadths Mallampati Class: II Neck normal visual inspection Respiratory normal respiratory effort Auscultation: lungs clear to auscultation bilaterally Cardiovascular Rate/Rhythm: regular rate and regular rhythm Musculoskeletal L Knee swelling Psychiatric Orientation: alert Testing Laboratory Results 06/07/21 08:34 06/07/21 08:34 Blood Type A Positive 06/07/21 09:03 Antibody Screen NEGATIVE 06/07/21 09:03 06/07/21 09:08 Gram Stain - Final Knee,Left
[2021-06-07] MEDS ORDERED: ATROPINE SULFATE 0.1 MG/ML 10ML SYR IV PRN (12:06)
[2021-06-07] MEDS ORDERED: fentaNYL citrate 100 MCG/2 ML VIAL IV PRN (12:06)
[2021-06-07] MEDS ORDERED: ePHEDrine sulfate 50 MG/ML AMP IV PRN (12:06)
[2021-06-07] MEDS ORDERED: LIDOCAINE 2% 2 ML VIAL/AMP(20MG/ML) INFIL ONE (12:22)
[2021-06-07] MEDS ORDERED: HYDROmorphone INJ 2 MG/ML SYR/VIAL ONE (12:39)
[2021-06-07] MEDS ORDERED: ONDANSETRON INJ 2 MG/ML 2 ML VIAL ONE ×2 (12:39→14:45)
[2021-06-07] MEDS ORDERED: SODIUM CHLORIDE 0.9% INJ 10 ML VIAL ONE (12:40)
[2021-06-07] MEDS ORDERED: METOPROLOL TARTRATE 1 MG/ML VIAL IV ONE (13:42)
[2021-06-07] MEDS ORDERED: LABETALOL HCL IV 5 MG/ML 20ML IV ONE (13:52)
--- NOTE | 2021-06-07 14:37 | Operative Report ---
Post Operative Report Pre & Post Diagnosis Operation Date: 06/07/21 08:10 Pre-Op Diagnosis: Infected Left Total Knee Arthroplasty Post-Op Diagnosis: Infected Left Total Knee Arthroplasty I identified the patient and participated in the time-out.: Yes Procedure Operation Date: 06/07/21 08:10 Actual Procedures p Left Total Knee: Explant of Hardware, Incision and Drainage, Implantation Articulated Antibiotic Spacer(Left) size 11 persona CR provisional 10 mm constrained polythirty 5 x 9 patella with antibiotic spacer Anand Villatoro DO Surgeon Anand Villatoro DO Motor Vehicle Compliance Analyst Brayan BILLINGSLEY Estimated Blood Loss 30 Findings Consistent with Post-Op Diagnosis Patient presents to the emergency room this morning after being seen in emergency room and 2 boys x2 over the weekend was referred to our office this morning and was sent to the emergency room for infection of the left total knee arthroplasty which initiated placed back in December and had a washout was doing work quite well was actually seen by myself in the office last week and was completely complaint free no redness no swelling no pain on Monday on Monday started having pain which progressed throughout the week through the weekend which took him to the emergency room separately presents here after having had an aspirate multiple gram positive cocci with an obvious infected left total knee arthroplasty that is failed a washout after proper prepping draping incision made in the region of the previous incision cultures were taken tissue cultures were also taken Fluids Joint fluid Specimens Explant of previous total knee implants synovium joint fluid Drains Medium bore Hemovac Anesthesia Type General Complications none Disposition Accompanied Patient To Recovery: No Disposition: Recovery Room Indications Patient presents with infected left total knee arthroplasty for removal of antibiotic insertion of antibiotic spacer type surgery the patient is noted evidence of seropurulent material within the knee joint with thickened hypertrophic synovium Description of Procedure Initiation of general anesthesia the left lower extremity socially prepped draped usual fashion surgery type incision made in the region of the previous incision dissection carried down through subcutaneous tissues a medial parapatellar incision was made the patella was subluxed lateralward a complete synovectomy was performed at this time synovial fluid have been sent for culture and analysis the femoral component and tibial components were removed utilizing Ultra-Drive tissue from the interface of the implant on both were removed there was an area of purulence in the bone in the region of the posterior lateral femoral condyle the implants having been removed the patella implant was removed as well the wound was irrigated with 9 L of antibiotic impregnated sterile saline solution via pulse lavage there is also a versa jet was used to complete the synovectomy in all 3 compartments after thorough irrigation debridement lavage drapes were changed gloves were changed mentation on the field and table were all changed the wound having been thoroughly irrigated trial components 4 femur size 11 provisional was brought onto the field and resized noted to be excellent the and small polywas placed such that we could do a articulated spacer with a cement mantle the cement was mixed with Vanco and gent was prepared the back table subsequently mixed the components were then loosely cemented utilizing a hand technique to apply the cement to the end of the bone the implant beings loosely cemented on the femur tibia patella was then thoroughly irrigated of the medial parapatellar incision closed #1 Vicryl subcu was closed with Vicryl skin was closed with skin clips sterile compressive dressings placed please note medium Hemovac in place and deep wound after thorough irrigation debridement lavage operative matter region move the patient was then subsequent taken to recovery room in stable condition operative report dictated by Irving please note Brayan BILLINGSLEY was necessary for prepping draping retraction wound closure of deep fascia subcu and skin was necessary for the case I attest to the content of the Intraoperative Record and any orders documented therein. Any exceptions are noted below.
[2021-06-07] MEDS ORDERED: KETOROLAC 30 MG/ML VIAL ONE (14:45)
--- NOTE | 2021-06-07 14:47 | Pharmacy Report ---
Pharmacy Vanc [facility] Short Note - Date of Service June 07, 2021 - Assessment & Plan Assessment 66 year old M admitted this morning secondary to worsening pain and swelling to left knee. * Patient underwent L TKA in November 2020. Subsequently developed a MSSA infection requiring an open irrigation and debridement in March 2021. PICC line placed and patient completed 6 weeks of IV cefazolin. * Underwent aspiration of L knee in ER. Analysis of synovial fluid favors infection. * Afebrile and without leukocytosis. Renal fxn is at baseline. ESR/CRP elevated. Cultures are pending at this time. * Started on Vancomycin prior to OR. POD #0 s/p L knee explant of hardware, incision and drainage, and implantation of articulated antibiotic spacer. Plan Vancomycin * AUC/SELVIN is the preferred PK/PD target for vancomycin * AUC guided dosing is effective and associated with decreased risk of nephrotoxicity compared to traditional trough targets * Goal AUC/SELVIN and trough of 400-600 mg/L.hr and 15-20 mcg/mL, respectively * Loading Dose: 2500 mg (22 mg/kg) IV x 1 * Maintenance Dose: 1000 mg (9 mg/kg) IV every 8 hours * Dosing regimen is expected to achieve a steady-state AUC/SELVIN and trough of 552 mg/L.hr and 19.2 mcg/mL, respectively. This regimen is associated with a 16% risk of nephrotoxicity. * Trough level ordered for 06/08/21 prior to the 1200 dose Pharmacy will continue to follow and will adjust dose/frequency as necessary. Thank you.
--- NOTE | 2021-06-07 16:14 | Anesthesiology Progress Note ---
Date of Service June 07, 2021 Anesthesia Post Procedure Vital Signs Vital Signs: Temp Pulse Pulse Pulse Resp BP BP 06/07/21 16:05 95 H 16 146/83 H 06/07/21 15:55 96 H 12 147/82 H 06/07/21 15:45 99 H 12 146/86 H 06/07/21 15:35 96 H 12 144/87 H 06/07/21 15:27 97.7 F 97 H 12 136/82 06/07/21 11:09 99.5 F 81 18 135/76 06/07/21 10:49 86 20 142/77 H 06/07/21 10:02 76 22 138/73 06/07/21 07:45 78 20 06/07/21 07:37 74 22 141/68 H 06/07/21 06:57 97.7 F 85 20 134/78 Pulse Ox 06/07/21 16:05 95 06/07/21 15:55 96 06/07/21 15:45 99 06/07/21 15:35 98 06/07/21 15:27 99 06/07/21 11:09 99 06/07/21 10:49 98 06/07/21 10:02 99 06/07/21 07:45 06/07/21 07:37 98 06/07/21 06:57 98 Pain Intensity Left Leg: Pain Intensity: 0 Transfer of Care Handoff Completed per policy Notes Mental Status: alert / awake / arousable and participated in evaluation Patient Amnestic to Procedure: Yes Nausea / Vomiting: adequately controlled Pain: adequately controlled Airway Patency, RR, SpO2: stable & adequate BP & HR: stable & adequate Hydration State: stable & adequate Anesthetic Complications: no major complications apparent and Pt Satisfied with anesthetic care
--- NOTE | 2021-06-07 16:18 | XRay Report ---
XR knee LT 1 or 2V routine HISTORY: 66 years-old Male post op [knee total joint arthroplasty COMPARISON: Left knee radiographs 06/07/2021 TECHNIQUE: 2 views of the left knee FINDINGS: Left knee total joint arthroplasty with patellar resurfacing. Anterior midline skin merly are noted with surgical drainage catheter and expected postoperative soft tissue swelling with deep tissue air . Antibiotic seeds have been placed within the joint space. No acute fracture, malalignment or unexpe cted opaque foreign body identified. IMPRESSION: Expected postoperative changes as above. ACT 112: Negative or not required by law. The above report was generated using voice recognition software. It may contain grammatical, syntax o r spelling errors. Electronically signed by: Elmer Flynn M.D. 06/07/2021 4:17 PM
[2021-06-07] MEDS ORDERED: BUMETANIDE 1 MG TAB PO SCH ×2 (17:02)
[2021-06-07] MEDS ORDERED: busPIRone 15 MG TAB PO SCH (17:02)
[2021-06-07] MEDS ORDERED: lisinopril 5 MG TAB PO SCH (17:02)
[2021-06-07] MEDS ORDERED: BACLOFEN 10 MG TAB PO SCH (17:02)
[2021-06-07] MEDS: allopurinoL 300 MG TAB PO SCH (18:08)
[2021-06-07] MEDS: PRIMIDONE 50 MG TAB PO SCH (18:09)
[2021-06-07] MEDS: CETIRIZINE HCL 10 MG TABLET PO SCH (18:10)
[2021-06-07] MEDS: PROPRANOLOL HCL 80 MG TAB PO SCH (18:10)
[2021-06-07] MEDS: TAMSULOSIN HCL 0.4 MG CAP PO SCH (18:10)
[2021-06-07] MEDS: VANCOMYCIN HCL 1,000 MG in SODIUM CHLORIDE 0.9% 250 ML IV SCH (20:01)
[2021-06-07] MEDS: TOPIRAMATE 100 MG TAB PO SCH (20:06)
[2021-06-07] MEDS: PANTOprazole 40 MG TAB PO SCH (20:08)
[2021-06-07] MEDS: DOCUSATE SODIUM 100 MG CAP PO SCH (20:08)
[2021-06-07] MEDS: ASPIRIN 81 MG ECTAB PO SCH (20:08)
[2021-06-07] MEDS: ATORVASTATIN 20 MG TAB PO SCH (20:09)
[2021-06-07] MEDS: traZODone HCL 100 MG TAB PO SCH (20:09)
[2021-06-07] MEDS: DULoxetine HCL 60 MG CAP PO SCH (20:10)
[2021-06-07] MEDS: MONTELUKAST SODIUM 10 MG TABLET PO SCH (20:10)
[2021-06-07] MEDS: busPIRone 15 MG TAB PO SCH (20:11)
[2021-06-07] MEDS: BACLOFEN 10 MG TAB PO SCH (20:12)
[2021-06-08] MEDS: HYDROmorphone INJ 0.5 MG/0.5 ML SYR IV PRN ×2 (00:53→05:56)
[2021-06-08] MEDS: VANCOMYCIN HCL 1,000 MG in SODIUM CHLORIDE 0.9% 250 ML IV SCH ×3 (04:30→19:55)
[2021-06-08 06:15] LABS: Hematocrit (blood only) 31.1 % (42-52); Hemoglobin 9.8 g/dL (14.0-18.0); Immature Granulocytes # (auto) 0.02 K/uL (0.00-0.02); Immature Granulocytes % (auto) 0.2 %; Lymphocytes # (auto) 0.98 K/uL (1.2-3.4); Lymphocytes % (auto) 10.1 %; Mean Corpuscular Hemoglobin 29.3 pg (25-34); Mean Corpuscular Hgb Conc 31.5 g/dL (32-36); Mean Corpuscular Volume 93.1 fL (80-100); Mean Platelet Volume 10.1 fL (7.4-10.4); Monocytes # (auto) 0.82 K/uL (0.11-0.59); Monocytes % (auto) 8.5 %; Neutrophils # (auto) 7.87 K/uL (1.4-6.5); Neutrophils % (auto) 81.2 %; Platelet Count 271 K/uL (130-400); RDW Coefficient of Variation 14.4 % (11.5-14.5); RDW Standard Deviation 48.9 fL (36.4-46.3); Red Blood Count 3.34 M/uL (4.7-6.1); White Blood Count 9.69 K/uL (4.8-10.8)
[2021-06-08] MEDS: SODIUM CHLORIDE 0.9% 1000ML 1,000 ML IV SCH ×2 (07:13→09:46)
[2021-06-08 07:20] LABS: BUN Creatinine Ratio 23.9 (10-20); Creatinine Clr Calc Pharmacy 148.2 ml/min; Est GFR (African American) 116.9 ml/min; Est GFR (Non-African American) 100.8 ml/min; Potassium 4.3 mmol/L (3.5-5.1)
[2021-06-08 07:43] LABS: Estimated Average Glucose 108 mg/dl; Hemoglobin A1C 5.4 % (4.5-5.6)
[2021-06-08] MEDS: BACLOFEN 10 MG TAB PO SCH ×2 (09:39→19:57)
[2021-06-08] MEDS: DOCUSATE SODIUM 100 MG CAP PO SCH ×2 (09:42→19:58)
[2021-06-08] MEDS: busPIRone 15 MG TAB PO SCH ×2 (09:42→19:58)
[2021-06-08] MEDS: ASPIRIN 81 MG ECTAB PO SCH ×2 (09:42→19:55)
[2021-06-08] MEDS: DULoxetine HCL 60 MG CAP PO SCH ×2 (09:42→20:00)
[2021-06-08] MEDS: CHOLECALCIFEROL 1,000 UNITS 25 MCG TAB PO SCH (09:43)
[2021-06-08] MEDS: PROPRANOLOL HCL 80 MG TAB PO SCH (09:43)
[2021-06-08] MEDS: CETIRIZINE HCL 10 MG TABLET PO SCH (09:43)
[2021-06-08] MEDS: TAMSULOSIN HCL 0.4 MG CAP PO SCH (09:43)
[2021-06-08] MEDS: allopurinoL 300 MG TAB PO SCH (09:43)
[2021-06-08] MEDS: PRIMIDONE 50 MG TAB PO SCH (09:44)
[2021-06-08] MEDS ORDERED: VANCOMYCIN TROUGH ONE (11:30)
[2021-06-08] MEDS: oxyCODONE HCL IR 5 MG TAB (IMMEDIATE RELEASE) PO PRN ×2 (13:30→19:54)
--- NOTE | 2021-06-08 13:49 | Pharmacy Report ---
Pharmacy Vanc AUC Short Note - Date of Service June 08, 2021 - Assessment & Plan Assessment 66 year old M POD #1 s/p L knee explant of hardware, incision and drainage, and implantation of articulated antibiotic spacer. * Day #2 of antibiotic therapy. * Afebrile. No leukocytosis. Renal fxn stable. * Preliminary cultures are growing Staph species. Will await finalization. Plan Vancomycin * AUC/SELVIN is the preferred PK/PD target for vancomycin * AUC guided dosing is effective and associated with decreased risk of nephrotoxicity compared to traditional trough targets * Trough level of 15.2 mcg/mL is predicted to achieve target AUC/SELVIN of 400-600 mg/L.hr and may be associated with a 14% risk of nephrotoxicity * Continue dose of 1000 mg IV every 8 hours * Trough level ordered for 06/10/21 prior to 1200 dose Pharmacy will continue to follow and will adjust dose/frequency as necessary. Thank you.
--- NOTE | 2021-06-08 15:55 | Orthopedic Progress Note ---
Date of Service June 08, 2021 Assessment & Plan (1) Infection of total left knee replacement: Plan: POD 1 s/p explant infected Left TKA; Irrigation and debridement; Implantation antibx articulated spacer left knee. Cx showing Staph species. Continue Vancomycin. Likely switch to Daptomycin for ease of treatment with home health. Failed 6 weeks of Ancef therapy previously. PT/OT. WBAT with immobilizer on. Gentle ROM 0-60 at bedside with PT. DVT Prophylaxis - currently BID ASA Pain management as written. Await Blood Cx at least one more day for Picc line placement. Pt will need HH services and another 6 weeks IV antibx. Await Cx finals for identification and sensitivity. Admission and Anticipated Discharge Date Admission Date: June 07, 2021 Subjective POD 1 Pt sitting up at the bedside. No complaints today. Comfortable. Pain controlled. Multiple questions about future antibx/picc line etc. All questions answered at that time. No new complaints. Physical Exam Physical Exam: Dressings C/D/I. Calves are soft, NT. NV intact. Immobilizer in place. Toes mobile. Results & Data ([facility]) Vital Signs (Past 12 Hours) Vital Signs Temp Pulse Pulse Resp BP Pulse Ox 06/08/21 15:30 36.7 C 66 66 16 112/65 98 06/08/21 07:16 36.9 C 64 16 113/62 98 Laboratory Results Laboratory Results WBC 9.69 K/uL (4.8-10.8) 06/08/21 05:46 RBC 3.34 M/uL (4.7-6.1) L 06/08/21 05:46 Hgb 9.8 g/dL (14.0-18.0) L 06/08/21 05:46 Hct 31.1 % (42-52) L 06/08/21 05:46 MCV 93.1 fL (80-100) 06/08/21 05:46 MCH 29.3 pg (25-34) 06/08/21 05:46 MCHC 31.5 g/dL (32-36) L 06/08/21 05:46 RDW Std Deviation 48.9 fL (36.4-46.3) H 06/08/21 05:46 RDW Coeff of [place]ore[place] 14.4 % (11.5-14.5) 06/08/21 05:46 Plt Count 271 K/uL (130-400) 06/08/21 05:46 MPV 10.1 fL (7.4-10.4) 06/08/21 05:46 Immature Gran % (Auto) 0.2 % 06/08/21 05:46 Neut % (Auto) 81.2 % 06/08/21 05:46 Lymph % (Auto) 10.1 % 06/08/21 05:46 [place] % (Auto) 8.5 % 06/08/21 05:46 Eos % (Auto) 0.0 % 06/08/21 05:46 Baso % (Auto) 0.0 % 06/08/21 05:46 Neut # (Auto) 7.87 K/uL (1.4-6.5) H 06/08/21 05:46 Lymph # (Auto) 0.98 K/uL (1.2-3.4) L 06/08/21 05:46 [place] # (Auto) 0.82 K/uL (0.11-0.59) H 06/08/21 05:46 Eos # (Auto) 0.00 K/uL (0-0.5) 06/08/21 05:46 Baso # (Auto) 0.00 K/uL (0-0.2) 06/08/21 05:46 Immature Gran # (Auto) 0.02 K/uL (0.00-0.02) 06/08/21 05:46 ESR 82 mm/hr (0-20) H 06/07/21 08:34 Sodium 136 mmol/L (136-145) 06/08/21 05:46 Potassium 4.3 mmol/L (3.5-5.1) 06/08/21 05:46 Chloride 106 mmol/L (98-107) 06/08/21 05:46 Carbon Dioxide 22 mmol/L (21-32) 06/08/21 05:46 Anion Gap 8.0 (3-11) 06/08/21 05:46 BUN 16 mg/dl (7-18) 06/08/21 05:46 Creatinine 0.67 mg/dl (0.6-1.4) 06/08/21 05:46 Est Cr Clr Drug Dosing 148.2 ml/min 06/08/21 05:46 Est GFR ( Amer) 116.9 ml/min 06/08/21 05:46 Est GFR (Non-Af Amer) 100.8 ml/min 06/08/21 05:46 BUN/Creatinine Ratio 23.9 (10-20) H 06/08/21 05:46 Glucose 104 mg/dl (70-99) H 06/08/21 05:46 Estimat Average Glucose 108 mg/dl 06/08/21 05:46 Hemoglobin A1c 5.4 % (4.5-5.6) 06/08/21 05:46 Calcium 9.0 mg/dl (8.5-10.1) 06/08/21 05:46 Total Bilirubin 1.0 mg/dl (0.2-1) 06/07/21 08:34 AST 19 U/L (15-37) 06/07/21 08:34 ALT 17 U/L (12-78) 06/07/21 08:34 Alkaline Phosphatase 128 U/L (45-117) H 06/07/21 08:34 C-Reactive Protein 14.30 mg/dl (0-0.29) H 06/07/21 08:34 Total Protein 7.9 gm/dl (6.4-8.2) 06/07/21 08:34 Albumin 2.5 gm/dl (3.4-5.0) L 06/07/21 08:34 Globulin 5.4 gm/dl (2.5-4.0) H 06/07/21 08:34 Albumin/Globulin Ratio 0.5 (0.9-2) L 06/07/21 08:34 Specimen Hemolysis 06/08/21 05:46 Fluid Comment 06/07/21 09:08 Synovial Source KNEE 06/07/21 09:08 Synovial Color NAIF 06/07/21 09:08 Synovial Appearance TURBID 06/07/21 09:08 Synovial WBC 175952 /ul (0-200) H 06/07/21 09:08 Synovial RBC [id number] /uL 06/07/21 09:08 Synovial Polynuclear % 97.1 % 06/07/21 09:08 Synovial Mononuclear % 2.9 % 06/07/21 09:08 Synovial Crystals 06/07/21 09:08 Vancomycin Trough 15.2 mcg/ml (See Comment) 06/08/21 11:32 COVID-19 Eval Order Covid19 at [facility] 06/07/21 08:00 SARS-CoV-2 (PCR) NEGATIVE (Negative) 06/07/21 08:00 Blood Type A Positive 06/07/21 09:03 Antibody Screen NEGATIVE 06/07/21 09:03 Impressions Venous Doppler Study 06/07/21 08:37 ULTRASOUND LEFT LOWER EXTREMITY VENOUS CLINICAL HISTORY: Left calf edema. COMPARISON STUDY: No priors. TECHNIQUE: Real-time, grayscale, and color Doppler sonography of the deep veins of the left lower extremity was performed from the inguinal crease to the calf. Compression and augmentation were utilized. FINDINGS: There is no sonographic evidence of deep venous thrombosis identified in the left lower extremity. The common femoral, superficial femoral, and popliteal veins are patent and normally compressible. The greater saphenous vein and the profunda femoris vein at the junction with the common femoral vein are clear. The visualized calf veins are patent. Soft tissue edema is noted in the calf. IMPRESSION: There is no sonographic evidence of deep venous thrombosis identified in the left lower extremity. ACT 112: Negative or not required by law. Electronically signed by: Romeo Carrillo M.D. 06/07/2021 10:56 AM Knee X-Ray 06/07/21 15:40 XR knee LT 1 or 2V routine HISTORY: 66 years-old Male post op [knee total joint arthroplasty COMPARISON: Left knee radiographs 06/07/2021 TECHNIQUE: 2 views of the left knee FINDINGS: Left knee total joint arthroplasty with patellar resurfacing. Anterior midline skin merly are noted with surgical drainage catheter and expected postoperative soft tissue swelling with deep tissue air. Antibiotic seeds have been placed within the joint space. No acute fracture, malalignment or unexpected opaque foreign body identified. IMPRESSION: Expected postoperative changes as above. ACT 112: Negative or not required by law. The above report was generated using voice recognition software. It may contain grammatical, syntax or spelling errors. Electronically signed by: Elmer Flynn M.D. 06/07/2021 4:17 PM (1) Infection of total left knee replacement Encounter type: initial encounter Qualified Code(s): T84.54XA - Infection and inflammatory reaction due to internal left knee prosthesis, initial encounter
[2021-06-08] MEDS: DICLOFENAC SOD 1% GEL 100 GM TUBE EXT SCH ×2 (19:50→22:32)
[2021-06-08] MEDS: ATORVASTATIN 20 MG TAB PO SCH (19:57)
[2021-06-08] MEDS: MONTELUKAST SODIUM 10 MG TABLET PO SCH (19:59)
[2021-06-08] MEDS: GABAPENTIN 600 MG TAB PO SCH (19:59)
[2021-06-08] MEDS: traZODone HCL 100 MG TAB PO SCH (20:01)
[2021-06-08] MEDS: TOPIRAMATE 100 MG TAB PO SCH (20:02)
[2021-06-08] MEDS: PANTOprazole 40 MG TAB PO SCH (20:03)
--- NOTE | 2021-06-08 21:18 | Hospitalist Progress Note ---
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 Cultures with MSSA. s/p 6-week course of IV antibiotic therapy (Ancef). Finished that course about 2 weeks ago. Despite such he developed recurrent septic left total knee. POD #1 - s/p explantation of L TKR hardware, abx spacer implantation, etc. Cultures with staph species - likely to be MSSA. Currently on IV vanco - follow cultures to completion and narrow antibiotics as appropriate. Defer management to ortho but strongly consider ID consultation. No evidence of septicemia at this time. Blood cultures negative. (2) Sleep apnea: Plan: not on Rx for such (3) Nonobstructive atherosclerosis of coronary artery: Plan: h/o NSTEMI but, by history, cath without obstructive CAD?? Remains on asa, statin, etc. No ischemic symptoms at this time. (4) Hypertension: Plan: Cont to Hold bumex Cont to Hold ERUM Cont propranolol Bmp stable (5) Hyperlipidemia: Plan: statin (6) GERD (gastroesophageal reflux disease): Plan: PPI daily (7) Anxiety: Plan: Cont all home meds (8) BPH (benign prostatic hyperplasia): Plan: Cont flomax (9) Shoulder pain, bilateral: Plan: likely OA no evidence of inflammatory arthropathy of shoulders, elbows, wrists, hands, etc start voltaren gel 4gm qid to R or L shoulder Plan: Admission and Anticipated Discharge Date Admission Date: June 07, 2021 Subjective patient c/o left knee pain also c/o b/l shoulder pain, R>L the shoulder pain is chronic he also has ankle pain on left at times denies joint pain/swelling/stiffness of fingers, wrists, elbows no prior h/o gout or RA denies diarrhea no dyspnea called and spoke with [facility] microbiology - blood cultures from 06/06 remain negative Review of Systems Review of Systems: gen - no fevers, no chills; mild anorexia CV - no chest pain pulm - no cough or dyspnea GI - no N/V Physical Exam Physical Exam: gen - NAD, a/o x 3 mouth - MMM neck - no JVD heart - RRR, s1 s2, no murmur lungs - CTA b/l abd - soft, NT, ND, BS+ ext - mild edema left ankle/foot; large knee brace in place on left; no edema on right musculo - no synovitis of small joints of b/l hands; shoulders without synovitis; elbows, wrists without synovitis Results & Data Results & Data ([facility]) Vital Signs (Past 12 Hours) Vital Signs Temp Pulse Pulse Resp BP Pulse Ox 06/08/21 15:30 36.7 C 66 66 16 112/65 98 Laboratory Results Laboratory Results - last 24 hr 06/08/21 06/08/21 06/08/21 05:46 05:46 05:46 WBC 9.69 RBC 3.34 L Hgb 9.8 L Hct 31.1 L MCV 93.1 MCH 29.3 MCHC 31.5 L RDW Std Deviation 48.9 H RDW Coeff of [place] 14.4 Plt Count 271 MPV 10.1 Immature Gran % (Auto) 0.2 Neut % (Auto) 81.2 Lymph % (Auto) 10.1 [place] % (Auto) 8.5 Eos % (Auto) 0.0 Baso % (Auto) 0.0 Neut # (Auto) 7.87 H Lymph # (Auto) 0.98 L [place] # (Auto) 0.82 H Eos # (Auto) 0.00 Baso # (Auto) 0.00 Immature Gran # (Auto) 0.02 Sodium 136 Potassium 4.3 Chloride 106 Carbon Dioxide 22 Anion Gap 8.0 BUN 16 Creatinine 0.67 Est Cr Clr Drug Dosing 148.2 Est GFR ( Amer) 116.9 Est GFR (Non-Af Amer) 100.8 BUN/Creatinine Ratio 23.9 H Glucose 104 H Estimat Average Glucose 108 Hemoglobin A1c 5.4 Calcium 9.0 Specimen Hemolysis Vancomycin Trough 06/08/21 11:32 WBC RBC Hgb Hct MCV MCH MCHC RDW Std Deviation RDW Coeff of [place]ore[place] Plt Count MPV Immature Gran % (Auto) Neut % (Auto) Lymph % (Auto) [place] % (Auto) Eos % (Auto) Baso % (Auto) Neut # (Auto) Lymph # (Auto) [place] # (Auto) Eos # (Auto) Baso # (Auto) Immature Gran # (Auto) Sodium Potassium Chloride Carbon Dioxide Anion Gap BUN Creatinine Est Cr Clr Drug Dosing Est GFR ( Amer) Est GFR (Non-Af Amer) BUN/Creatinine Ratio Glucose Estimat Average Glucose Hemoglobin A1c Calcium Specimen Hemolysis Vancomycin Trough 15.2 Diagnostic Findings blood cultures from [facility] 06/06 negative blood cultures from [facility] negative cultures - left knee - all positive for staph species PG Care Time/CCT Total # of Minutes Spent Total Time Spent with Patient: Total time spent is greater than 50% in coordination of care (as documented) at patient's floor/unit and/or counseling patient: Coding Level of Care Code 66517 Subseq Hosp Care Lvl 2 Diagnoses Infection of total left knee replacement T84.54XA Encounter type: initial encounter Sleep apnea G47.30 Nonobstructive atherosclerosis of coronary artery I25.10 Hypertension I10 Hyperlipidemia E78.5 GERD (gastroesophageal reflux disease) K21.9 Anxiety F41.9 BPH (benign prostatic hyperplasia) N40.0 Shoulder pain, bilateral M25.511; M25.512 (1) Infection of total left knee replacement Encounter type: initial encounter Qualified Code(s): T84.54XA - Infection and inflammatory reaction due to internal left knee prosthesis, initial encounter
[2021-06-09] MEDS: VANCOMYCIN HCL 1,000 MG in SODIUM CHLORIDE 0.9% 250 ML IV SCH ×3 (04:28→21:51)
[2021-06-09 08:16] LABS: Creatinine Clr Calc Pharmacy 132.4 ml/min; Est GFR (African American) 111.6 ml/min; Est GFR (Non-African American) 96.3 ml/min
[2021-06-09] MEDS: CETIRIZINE HCL 10 MG TABLET PO SCH (09:39)
[2021-06-09] MEDS: TAMSULOSIN HCL 0.4 MG CAP PO SCH (09:39)
[2021-06-09] MEDS: PRIMIDONE 50 MG TAB PO SCH (09:40)
[2021-06-09] MEDS: DOCUSATE SODIUM 100 MG CAP PO SCH ×2 (09:40→21:56)
[2021-06-09] MEDS: allopurinoL 300 MG TAB PO SCH (09:41)
[2021-06-09] MEDS: PROPRANOLOL HCL 80 MG TAB PO SCH (09:41)
[2021-06-09] MEDS: CHOLECALCIFEROL 1,000 UNITS 25 MCG TAB PO SCH (09:41)
[2021-06-09] MEDS: BACLOFEN 10 MG TAB PO SCH ×2 (09:42→21:54)
[2021-06-09] MEDS: DULoxetine HCL 60 MG CAP PO SCH ×2 (09:42→21:56)
[2021-06-09] MEDS: ASPIRIN 81 MG ECTAB PO SCH ×2 (09:43→21:54)
[2021-06-09] MEDS: busPIRone 15 MG TAB PO SCH ×2 (09:43→21:55)
[2021-06-09] MEDS: GABAPENTIN 600 MG TAB PO SCH ×2 (09:43→21:57)
[2021-06-09] MEDS: DICLOFENAC SOD 1% GEL 100 GM TUBE EXT SCH ×4 (09:44→22:03)
[2021-06-09] MEDS: oxyCODONE HCL IR 5 MG TAB (IMMEDIATE RELEASE) PO PRN ×3 (09:48→21:52)
--- NOTE | 2021-06-09 15:01 | Orthopedic Progress Note ---
Date of Service June 09, 2021 Assessment & Plan (1) Infection of total left knee replacement: Plan: POD 2 s/p explant infected Left TKA; Irrigation and debridement; Implantation antibx articulated spacer left knee. Cx showing MSSA. Continue Vancomycin. Consult placed for [facility] infectious disease team. Await input. PT/OT. WBAT with immobilizer on. Gentle ROM 0-60 at bedside with PT. DVT Prophylaxis - currently BID ASA Pain management as written. Blood cultures remaining negative. Pt will need HH services and another 6 weeks IV antibx. Await Cx finals for identification and sensitivity. Admission and Anticipated Discharge Date Admission Date: June 07, 2021 Subjective Postop day 2 Patient sitting up in bed this morning. No complaints this morning. States he had some pain last night but is controlled today. No other complaints. Physical Exam Physical Exam: Dressings are clean, dry, and intact. Minimal to no drainage coming from the Prevena wound VAC. Hemovac present. Calves are soft nontender. Neurovascular intact. Toes are mobile. Results & Data ([facility]) Vital Signs (Past 12 Hours) Vital Signs Temp Pulse Resp BP Pulse Ox 06/09/21 07:35 36.7 C 66 16 143/78 H 99 (1) Infection of total left knee replacement Encounter type: initial encounter Qualified Code(s): T84.54XA - Infection and inflammatory reaction due to internal left knee prosthesis, initial encounter
--- NOTE | 2021-06-09 21:12 | Hospitalist Progress Note ---
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 Cultures with MSSA. s/p 6-week course of IV antibiotic therapy (Ancef). Finished that course about 2 weeks ago. Despite such he developed recurrent septic left total knee. POD #2 - s/p explantation of L TKR hardware, abx spacer implantation, etc. Cultures with MSSA. Currently on IV vanco - [facility] ID consultation pending for final abx recommendations. No evidence of septicemia at this time. Blood cultures negative. (2) Sleep apnea: Plan: not on Rx for such (3) Nonobstructive atherosclerosis of coronary artery: Plan: h/o NSTEMI but, by history, previous cath without obstructive CAD?? Remains on asa, statin, etc. No ischemic symptoms at this time. (4) Hypertension: Plan: Cont to Hold bumex - volume status appropriate Cont to Hold ERUM Cont propranolol Can likely resume bumex & lisinopril at discharge (5) Hyperlipidemia: Plan: statin (6) GERD (gastroesophageal reflux disease): Plan: PPI daily (7) Anxiety: Plan: Cont all home meds (8) BPH (benign prostatic hyperplasia): Plan: Cont flomax (9) Shoulder pain, bilateral: Plan: likely OA no evidence of inflammatory arthropathy of shoulders, elbows, wrists, hands, etc cont voltaren gel 4gm qid to R or L shoulder as desired Plan: Admission and Anticipated Discharge Date Admission Date: June 07, 2021 Subjective pt reports ongoing L knee pain using voltaren gel for shoulders eating better no dyspnea no diarrhea I called and spoke with [facility] labs - blood cultures from 06/06 remain negative Review of Systems Review of Systems: gen - no fevers or chills cv - no chest pain pulm - no cough/dyspnea Physical Exam Physical Exam: gen - NAD, a/o x 3 mouth - MMM neck - no JVD heart - RRR, s1 s2, no murmur lungs - CTA b/l abd - soft, NT, ND, BS+ ext - <1+ edema left ankle/foot; large knee brace in place on left; no edema on right Results & Data Results & Data ([facility]) Vital Signs (Past 12 Hours) Vital Signs Temp Pulse Resp BP Pulse Ox 06/09/21 15:49 36.9 C 64 18 97/61 L 95 Laboratory Results Laboratory Results - last 24 hr 06/09/21 07:25 Creatinine 0.75 Est Cr Clr Drug Dosing 132.4 Est GFR ( Amer) 111.6 Est GFR (Non-Af Amer) 96.3 Diagnostic Findings all synovial fluid cultures with staph aureus, MSSA blood cultures from 06/06 ([facility]) negative blood cultures from [facility] negative PG Care Time/CCT Total # of Minutes Spent Total Time Spent with Patient: Total time spent is greater than 50% in coordination of care (as documented) at patient's floor/unit and/or counseling patient: Coding Level of Care Code 65106 Subseq Hosp Care Lvl 1 Diagnoses Infection of total left knee replacement T84.54XA Encounter type: initial encounter Sleep apnea G47.30 Nonobstructive atherosclerosis of coronary artery I25.10 Hypertension I10 Hyperlipidemia E78.5 GERD (gastroesophageal reflux disease) K21.9 Anxiety F41.9 BPH (benign prostatic hyperplasia) N40.0 Shoulder pain, bilateral M25.511; M25.512 (1) Infection of total left knee replacement Encounter type: initial encounter Qualified Code(s): T84.54XA - Infection and inflammatory reaction due to internal left knee prosthesis, initial encounter
[2021-06-09] MEDS: ATORVASTATIN 20 MG TAB PO SCH (21:53)
[2021-06-09] MEDS: PANTOprazole 40 MG TAB PO SCH (21:57)
[2021-06-09] MEDS: MONTELUKAST SODIUM 10 MG TABLET PO SCH (21:57)
[2021-06-09] MEDS: TOPIRAMATE 100 MG TAB PO SCH (21:58)
[2021-06-09] MEDS: traZODone HCL 100 MG TAB PO SCH (21:58)
[2021-06-10] MEDS: VANCOMYCIN HCL 1,000 MG in SODIUM CHLORIDE 0.9% 250 ML IV SCH ×3 (04:40→21:04)
[2021-06-10 07:05] LABS: Creatinine Clr Calc Pharmacy 141.8 ml/min; Est GFR (African American) 114.8 ml/min
[2021-06-10] MEDS: oxyCODONE HCL IR 5 MG TAB (IMMEDIATE RELEASE) PO PRN ×3 (09:45→18:33)
[2021-06-10] MEDS: allopurinoL 300 MG TAB PO SCH (09:52)
[2021-06-10] MEDS: CHOLECALCIFEROL 1,000 UNITS 25 MCG TAB PO SCH (09:52)
[2021-06-10] MEDS: busPIRone 15 MG TAB PO SCH ×2 (09:52→21:11)
[2021-06-10] MEDS: TAMSULOSIN HCL 0.4 MG CAP PO SCH (09:52)
[2021-06-10] MEDS: PRIMIDONE 50 MG TAB PO SCH (09:52)
[2021-06-10] MEDS: PROPRANOLOL HCL 80 MG TAB PO SCH (09:52)
[2021-06-10] MEDS: CETIRIZINE HCL 10 MG TABLET PO SCH (09:52)
[2021-06-10] MEDS: ASPIRIN 81 MG ECTAB PO SCH ×2 (09:52→21:09)
[2021-06-10] MEDS: DULoxetine HCL 60 MG CAP PO SCH ×2 (09:52→21:12)
[2021-06-10] MEDS: BACLOFEN 10 MG TAB PO SCH ×2 (09:52→21:16)
[2021-06-10] MEDS: GABAPENTIN 600 MG TAB PO SCH ×2 (09:52→21:12)
[2021-06-10] MEDS: DICLOFENAC SOD 1% GEL 100 GM TUBE EXT SCH ×4 (09:53→21:11)
[2021-06-10] MEDS: DOCUSATE SODIUM 100 MG CAP PO SCH ×2 (10:00→21:16)
--- NOTE | 2021-06-10 11:10 | Orthopedic Progress Note ---
Date of Service June 10, 2021 Assessment & Plan (1) Infection of total left knee replacement: Plan: POD 3 s/p explant infected Left TKA; Irrigation and debridement; Implantation antibx articulated spacer left knee. Cx showing MSSA. Continue Vancomycin. Consult placed for [facility] infectious disease team. Await input. Hopefully today per staff. PT/OT. WBAT with immobilizer on. Gentle ROM 0-60 at bedside with PT. DVT Prophylaxis - currently BID ASA Pain management as written. Blood cultures remaining negative. Pt will need HH services and another 6 weeks IV antibx. Await Cx finals for identification and sensitivity. Pt feels he will need a rehab stay prior to returning home. CM working on referrals. Admission and Anticipated Discharge Date Admission Date: June 07, 2021 Supervising Physician Co-Signing Physician Notes Patient seen and examined. Pain is controlled. He appears to be resting c omfortably. Knee immobilizer and dressings are clean, dry, and intact. He is currently getting ready for his infectious disease telemedicine appointment. Final disposition and discharge plans to be determined based on the antibiotic plan. Subjective POD 3 Pt sitting up in chair at bedside. Feeling well today. Pain controlled. States in PT, he has ambulated out into the [place] a little bit. Went to the [place] to do his morning routine to clean up. No complaints. Physical Exam Physical Exam: Prevena wound vac in place. No drainage in container. Calves, soft, NT. NV intact. Toes mobile Results & Data ([facility]) Vital Signs (Past 12 Hours) Vital Signs Temp Pulse Resp BP Pulse Ox 06/10/21 07:36 36.5 C 72 16 121/71 100 06/09/21 23:35 36.4 C L 69 18 121/70 96 (1) Infection of total left knee replacement Encounter type: initial encounter Qualified Code(s): T84.54XA - Infection and inflammatory reaction due to internal left knee prosthesis, initial encounter
[2021-06-10] MEDS ORDERED: VANCOMYCIN TROUGH ONE (11:30)
--- NOTE | 2021-06-10 13:58 | Pharmacy Report ---
Pharmacy Vanc AUC Short Note - Date of Service June 10, 2021 - Assessment & Plan Assessment 06/10/21: * Vanc level obtained today (17.5mcg/mL) indicates that current regimen is still appropriate. * Blood cultures remain negative. * Knee cultures with MSSA. Awaiting ID recommendations. Anticipate that we could switch agents. * Patient will likely require 6 weeks of IV antibiotics, per surgical recommendations, for infected joint. Ideally, patient will be switched to an agent that will be more conducive to outpatient therapy. 06/08 * 66 year old M POD #1 s/p L knee explant of hardware, incision and drainage, and implantation of articulated antibiotic spacer. * Day #2 of antibiotic therapy. * Afebrile. No leukocytosis. Renal fxn stable. * Preliminary cultures are growing Staph species. Will await finalization. Plan Vancomycin * AUC/SELVIN is the preferred PK/PD target for vancomycin * AUC guided dosing is effective and associated with decreased risk of nephrotoxicity compared to traditional trough targets * Continue dose of 1000 mg IV every 8 hours * Trough level of 17.5 mcg/mL is predicted to achieve target AUC/SELVIN of 400-600 mg/L.hr and may be associated with a 13% risk of nephrotoxicity * No further levels have been ordered at this time. If vancomycin continues, will consider checking another vanc level in 3-4 days. Pharmacy will continue to follow and will adjust dose/frequency as necessary. Thank you.
--- NOTE | 2021-06-10 20:54 | Communication Note ---
Date of Service: June 10, 2021 Chart reviewed in detail. Blood cx's remain negative. VSS, patient afebrile. ID consultation completed today; awaiting full consult note. Anticipate 6 weeks of IV antibiotics for L TKR septic knee. Synovial / knee cultures all with MSSA; no new pathogens on those cultures. Remains on IV ancef. Will see patient at bedside tomorrow. Giancarlo Perez MD
[2021-06-10] MEDS: ATORVASTATIN 20 MG TAB PO SCH (21:10)
[2021-06-10] MEDS: MONTELUKAST SODIUM 10 MG TABLET PO SCH (21:12)
[2021-06-10] MEDS: PANTOprazole 40 MG TAB PO SCH (21:12)
[2021-06-10] MEDS: traZODone HCL 100 MG TAB PO SCH (21:13)
[2021-06-10] MEDS: TOPIRAMATE 100 MG TAB PO SCH (21:13)
[2021-06-11] MEDS: VANCOMYCIN HCL 1,000 MG in SODIUM CHLORIDE 0.9% 250 ML IV SCH ×2 (04:56→12:39)
[2021-06-11] MEDS: ASPIRIN 81 MG ECTAB PO SCH ×2 (09:17→20:44)
[2021-06-11] MEDS: allopurinoL 300 MG TAB PO SCH (09:17)
[2021-06-11] MEDS: DOCUSATE SODIUM 100 MG CAP PO SCH ×2 (09:18→20:53)
[2021-06-11] MEDS: BACLOFEN 10 MG TAB PO SCH ×2 (09:20→20:53)
[2021-06-11] MEDS: busPIRone 15 MG TAB PO SCH ×2 (09:20→20:45)
[2021-06-11] MEDS: CETIRIZINE HCL 10 MG TABLET PO SCH (09:20)
[2021-06-11] MEDS: DICLOFENAC SOD 1% GEL 100 GM TUBE EXT SCH ×4 (09:20→20:46)
[2021-06-11] MEDS: CHOLECALCIFEROL 1,000 UNITS 25 MCG TAB PO SCH (09:20)
[2021-06-11] MEDS: PROPRANOLOL HCL 80 MG TAB PO SCH (09:21)
[2021-06-11] MEDS: DULoxetine HCL 60 MG CAP PO SCH ×2 (09:21→20:46)
[2021-06-11] MEDS: PRIMIDONE 50 MG TAB PO SCH (09:21)
[2021-06-11] MEDS: GABAPENTIN 600 MG TAB PO SCH ×2 (09:21→20:47)
[2021-06-11] MEDS: TAMSULOSIN HCL 0.4 MG CAP PO SCH (09:22)
--- NOTE | 2021-06-11 10:14 | Orthopedic Progress Note ---
Date of Service June 11, 2021 Assessment & Plan (1) Infection of total left knee replacement: Plan: POD 4 s/p explant infected Left TKA; Irrigation and debridement; Implantation antibx articulated spacer left knee. Cx showing MSSA. Continue Vancomycin. ID recs appreciated. With the patient's history of reinfection shortly after stopping his IV antibiotics and requiring explant of hardware with implantation of antibiotic spacer, Dr. Villatoro is considering instead of cefazolin, 8 daptomycin/rifampin combination. Attempting to contact Dr. Lubin through [place] text at this time to discuss. PICC line ordered. PT/OT. WBAT with immobilizer on. Gentle ROM 0-60 at bedside with PT. DVT Prophylaxis - currently BID ASA Pain management as written. Blood cultures remaining negative. Pt will need HH services and another 6 weeks IV antibx. Pt feels he will need a rehab stay prior to returning home. CM working on referrals. Admission and Anticipated Discharge Date Admission Date: June 07, 2021 Subjective Postop day 4 Patient sitting up in his chair at the bedside going through his physical therapy protocol. No complaints today. Pain is controlled. Denies shortness of breath, chest pain, lightheadedness. Discussed that we had looked at infectious disease recommendations. 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 PICC line consent signed by patient and ordered to be placed today. Physical Exam Physical Exam: Prevena wound VAC is C/D/I. No erythema noted around the knee itself. Swelling consistent with surgery. Calves are soft nontender. Neurovascular intact. Toes are mobile. Results & Data ([facility]) Vital Signs (Past 12 Hours) Vital Signs Temp Pulse Resp BP Pulse Ox 06/11/21 06:59 36.7 C 77 16 142/73 H 97 06/10/21 23:39 36.7 C 65 16 111/67 96 (1) Infection of total left knee replacement Encounter type: initial encounter Qualified Code(s): T84.54XA - Infection and inflammatory reaction due to internal left knee prosthesis, initial encounter
[2021-06-11] MEDS: ceFAZolin 2000MG 2,000 MG/15 ML SYR IV SCH ×2 (14:28→21:01)
[2021-06-11] MEDS: rifAMPin 300 MG CAPSULE PO SCH ×2 (14:28→22:27)
[2021-06-11] MEDS: oxyCODONE HCL IR 5 MG TAB (IMMEDIATE RELEASE) PO PRN (14:34)
[2021-06-11] MEDS: ATORVASTATIN 20 MG TAB PO SCH (20:45)
[2021-06-11] MEDS: MONTELUKAST SODIUM 10 MG TABLET PO SCH (20:47)
[2021-06-11] MEDS: PANTOprazole 40 MG TAB PO SCH (20:48)
[2021-06-11] MEDS: TOPIRAMATE 100 MG TAB PO SCH (20:48)
[2021-06-11] MEDS: traZODone HCL 100 MG TAB PO SCH (20:49)
--- NOTE | 2021-06-11 21:34 | Hospitalist Progress Note ---
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 Cultures with MSSA. s/p 6-week course of IV antibiotic therapy (Ancef). Finished that course about 2 weeks ago. Despite such he developed recurrent septic left total knee. POD #3 - s/p explantation of L TKR hardware, abx spacer implantation, etc. Cultures with MSSA. Blood cultures remain negative. Final abx course selected today - 6 weeks of IV ancef + rifampin. Recent LFTs wnl. Will need weekly CBC, CMP, ESR/CRP. ESR/CRP today noted. (2) Sleep apnea: Plan: not on Rx for such (3) Nonobstructive atherosclerosis of coronary artery: Plan: h/o NSTEMI but, by history, previous cath without obstructive CAD Remains on asa, statin, etc. No ischemic symptoms at this time. (4) Hypertension: Plan: Cont to Hold bumex but suspect we can resume this weekend Cont to Hold ERUM Cont propranolol (5) Hyperlipidemia: Plan: statin (6) GERD (gastroesophageal reflux disease): Plan: PPI daily (7) Anxiety: Plan: Cont all home meds (8) BPH (benign prostatic hyperplasia): Plan: Cont flomax voiding fine (9) Shoulder pain, bilateral: Plan: likely OA cont voltaren gel 4gm qid to R or L shoulder as desired Plan: Admission and Anticipated Discharge Date Admission Date: June 07, 2021 Subjective patient resting comfortably in bed left knee pain remains but is improved from earlier this week no dyspnea, no cp, no abd pain, no diarrhea eating better no new complaints ID recs and discussion between ortho/ID reviewed Review of Systems Review of Systems: gen - no fevers/chills CV - no orthopnea pulm - no cough GI - no N/V Physical Exam Physical Exam: gen - NAD, a/o x 3 mouth - MMM neck - no JVD heart - RRR, s1 s2, no murmur lungs - CTA b/l abd - soft, NT, ND, BS+ ext - <1+ edema left ankle/foot; large knee brace in place on left; no edema on right skin - RUE PICC line in place, c/d/i Results & Data Results & Data ([place]) Vital Signs (Past 12 Hours) Vital Signs Temp Pulse Resp BP Pulse Ox 06/11/21 15:08 36.8 C 79 16 127/75 97 Laboratory Results Laboratory Results - last 24 hr 06/11/21 06/11/21 13:15 13:15 ESR 59 H C-Reactive Protein 5.79 H PG Care Time/CCT Total # of Minutes Spent Total Time Spent with Patient: Total time spent is greater than 50% in coordination of care (as documented) at patient's floor/unit and/or counseling patient: Coding Level of Care Code 25730 Subseq Hosp Care Lvl 1 Diagnoses Infection of total left knee replacement T84.54XA Encounter type: initial encounter Sleep apnea G47.30 Nonobstructive atherosclerosis of coronary artery I25.10 Hypertension I10 Hyperlipidemia E78.5 GERD (gastroesophageal reflux disease) K21.9 Anxiety F41.9 BPH (benign prostatic hyperplasia) N40.0 Shoulder pain, bilateral M25.511; M25.512 (1) Infection of total left knee replacement Encounter type: initial encounter Qualified Code(s): T84.54XA - Infection and inflammatory reaction due to internal left knee prosthesis, initial encounter
[2021-06-12] MEDS: oxyCODONE HCL IR 5 MG TAB (IMMEDIATE RELEASE) PO PRN ×3 (02:55→19:50)
[2021-06-12] MEDS: ceFAZolin 2000MG 2,000 MG/15 ML SYR IV SCH ×3 (05:45→21:06)
--- NOTE | 2021-06-12 06:34 | Orthopedic Progress Note ---
Date of Service June 12, 2021 Assessment & Plan (1) Infection of total left knee replacement: Plan: POD 5 s/p explant infected Left TKA; Irrigation and debridement; Implantation antibx articulated spacer left knee. Cx showing MSSA. ID recs appreciated. Brayan discussed with Dr. Lubin through [place] text as well as Dr Villatoro, have decided on Cefazolin/Rifampin x 6-8 weeks. PICC line PT/OT. WBAT with immobilizer on. Gentle ROM 0-60 at bedside with PT. DVT Prophylaxis - currently BID ASA Pain management as written. Blood cultures remaining negative. Pt will need HH services and another 6 weeks IV antibx. awaiting placement Admission and Anticipated Discharge Date Admission Date: June 07, 2021 Subjective POD #5 s/p removal TKA and placement antibiotic spacer Review of Systems Constitutional: no fever and no chills Cardiovascular: no chest pain and no orthopnea Gastrointestinal: no nausea and no vomiting Physical Exam Physical Exam: Vital Signs Temp Pulse Pulse Resp BP BP Pulse Ox 06/11/21 22:39 36.7 C 65 16 127/74 98 06/11/21 15:08 36.8 C 79 16 127/75 97 06/11/21 06:59 36.7 C 77 16 142/73 H 97 Intake and Output 06/11/21 06/11/21 06/12/21 14:59 22:59 06:59 Intake Total 470 / 570 100 / 570 Output Total 350 / 3175 1150 / 3175 1675 / 3175 Balance -350 / -2605 -680 / -2605 -1575 / -2605 Intake: IV 270 / 270 Vancomycin HCl 1,000 mg In 270 / 270 Sodium Chlorid e 0.9% 250 ml @ 200 mls/hr IV Q8H VÍCTOR Rx#: [id number] Oral 200 / 300 100 / 300 Output: Urine 350 / 3175 1150 / 3175 1675 / 3175 Other: # Unmeasured Voi ds 1 Constitutional: WD/WN, vitals as above Musculoskeletal: Left Knee: Prevena wound VAC is C/D/I. No erythema noted ar ound the knee itself. Swelling consistent with surgery. Calves are soft nontender. Neurovascular intact. Toes are mobile. Results & Data ([facility]) Vital Signs (Past 12 Hours) Vital Signs Temp Pulse Resp BP Pulse Ox 11/19/21 22:39 36.7 C 65 16 127/74 98 (1) Infection of total left knee replacement Encounter type: initial encounter Qualified Code(s): T84.54XA - Infection and inflammatory reaction due to internal left knee prosthesis, initial encounter
[2021-06-12] MEDS: DICLOFENAC SOD 1% GEL 100 GM TUBE EXT SCH ×4 (08:40→20:31)
[2021-06-12] MEDS: busPIRone 15 MG TAB PO SCH ×2 (08:41→20:26)
[2021-06-12] MEDS: CHOLECALCIFEROL 1,000 UNITS 25 MCG TAB PO SCH (08:41)
[2021-06-12] MEDS: allopurinoL 300 MG TAB PO SCH (08:42)
[2021-06-12] MEDS: DULoxetine HCL 60 MG CAP PO SCH ×2 (08:42→20:25)
[2021-06-12] MEDS: PRIMIDONE 50 MG TAB PO SCH (08:42)
[2021-06-12] MEDS: TAMSULOSIN HCL 0.4 MG CAP PO SCH (08:42)
[2021-06-12] MEDS: PROPRANOLOL HCL 80 MG TAB PO SCH (08:42)
[2021-06-12] MEDS: GABAPENTIN 600 MG TAB PO SCH ×2 (08:42→20:25)
[2021-06-12] MEDS: rifAMPin 300 MG CAPSULE PO SCH ×2 (08:42→20:25)
[2021-06-12] MEDS: CETIRIZINE HCL 10 MG TABLET PO SCH (08:42)
[2021-06-12] MEDS: BACLOFEN 10 MG TAB PO SCH ×2 (08:43→20:30)
[2021-06-12] MEDS: DOCUSATE SODIUM 100 MG CAP PO SCH ×2 (08:43→20:32)
[2021-06-12] MEDS: ASPIRIN 81 MG ECTAB PO SCH ×2 (08:43→20:26)
[2021-06-12] MEDS: ADVANCED PROBIOTIC 1250 MG CAPSULE PO SCH (18:26)
[2021-06-12] MEDS: MONTELUKAST SODIUM 10 MG TABLET PO SCH (20:25)
[2021-06-12] MEDS: PANTOprazole 40 MG TAB PO SCH (20:25)
[2021-06-12] MEDS: traZODone HCL 100 MG TAB PO SCH (20:26)
[2021-06-12] MEDS: ATORVASTATIN 20 MG TAB PO SCH (20:26)
[2021-06-12] MEDS: TOPIRAMATE 100 MG TAB PO SCH (20:26)
[2021-06-13] MEDS: oxyCODONE HCL IR 5 MG TAB (IMMEDIATE RELEASE) PO PRN ×4 (02:06→21:51)
[2021-06-13] MEDS: ceFAZolin 2000MG 2,000 MG/15 ML SYR IV SCH ×3 (05:44→22:04)
--- NOTE | 2021-06-13 08:58 | Orthopedic Progress Note ---
Date of Service June 13, 2021 Assessment & Plan (1) Infection of total left knee replacement: Plan: POD 6 s/p explant infected Left TKA; Irrigation and debridement; Implantation antibx articulated spacer left knee. Cx showing MSSA. ID recs appreciated. Brayan discussed with Dr. Lubin through [place] text as well as Dr Villatoro, have decided on Cefazolin/Rifampin x 6-8 weeks. PICC line plan on removing Prevana tomorrow on POD #7 PT/OT. WBAT with immobilizer on. Gentle ROM 0-60 at bedside with PT. DVT Prophylaxis - currently BID ASA Pain management as written. Blood cultures remaining negative. Pt will need HH services and another 6 weeks IV antibx. awaiting placement Admission and Anticipated Discharge Date Admission Date: June 07, 2021 Subjective POD #6 s/p removal TKA and placement antibiotic spacer Review of Systems Constitutional: no fever and no chills Cardiovascular: no chest pain and no orthopnea Gastrointestinal: no nausea and no vomiting Physical Exam Physical Exam: Vital Signs Temp Pulse Pulse Resp BP BP Pulse Ox 06/11/21 22:39 36.7 C 65 16 127/74 98 06/11/21 15:08 36.8 C 79 16 127/75 97 06/11/21 06:59 36.7 C 77 16 142/73 H 97 Intake and Output 06/11/21 06/11/21 06/12/21 14:59 22:59 06:59 Intake Total 470 / 570 100 / 570 Output Total 350 / 3175 1150 / 3175 1675 / 3175 Balance -350 / -2605 -680 / -2605 -1575 / -2605 Intake: IV 270 / 270 Vancomycin HCl 1,000 mg In 270 / 270 Sodium Chlorid e 0.9% 250 ml @ 200 mls/hr IV Q8H VÍCTOR Rx#: [id number] Oral 200 / 300 100 / 300 Output: Urine 350 / 3175 1150 / 3175 1675 / 3175 Other: # Unmeasured Voi ds 1 Musculoskeletal: Left Knee: Prevena wound VAC is C/D/I. No erythema noted around the knee itself. Swelling consistent with surgery. Calves are soft nontender. Neurovascular intact. Toes are mobile. Results & Data ([facility]) Vital Signs (Past 12 Hours) Vital Signs Temp Pulse Resp BP BP Pulse Ox 06/13/21 07:38 36.4 C L 73 16 122/70 98 06/12/21 23:52 36.4 C L 75 20 133/76 96 (1) Infection of total left knee replacement Encounter type: initial encounter Qualified Code(s): T84.54XA - Infection and inflammatory reaction due to internal left knee prosthesis, initial encounter
[2021-06-13] MEDS: allopurinoL 300 MG TAB PO SCH (09:02)
[2021-06-13] MEDS: busPIRone 15 MG TAB PO SCH ×2 (09:02→21:41)
[2021-06-13] MEDS: ASPIRIN 81 MG ECTAB PO SCH ×2 (09:02→21:40)
[2021-06-13] MEDS: CETIRIZINE HCL 10 MG TABLET PO SCH (09:02)
[2021-06-13] MEDS: BACLOFEN 10 MG TAB PO SCH ×2 (09:02→21:51)
[2021-06-13] MEDS: DICLOFENAC SOD 1% GEL 100 GM TUBE EXT SCH ×4 (09:03→21:42)
[2021-06-13] MEDS: CHOLECALCIFEROL 1,000 UNITS 25 MCG TAB PO SCH (09:03)
[2021-06-13] MEDS: DOCUSATE SODIUM 100 MG CAP PO SCH ×2 (09:03→21:51)
[2021-06-13] MEDS: DULoxetine HCL 60 MG CAP PO SCH ×2 (09:03→21:39)
[2021-06-13] MEDS: ADVANCED PROBIOTIC 1250 MG CAPSULE PO SCH (09:04)
[2021-06-13] MEDS: TAMSULOSIN HCL 0.4 MG CAP PO SCH (09:04)
[2021-06-13] MEDS: PROPRANOLOL HCL 80 MG TAB PO SCH (09:04)
[2021-06-13] MEDS: rifAMPin 300 MG CAPSULE PO SCH ×2 (09:04→21:40)
[2021-06-13] MEDS: PRIMIDONE 50 MG TAB PO SCH (09:04)
[2021-06-13] MEDS: GABAPENTIN 600 MG TAB PO SCH ×2 (09:04→21:40)
[2021-06-13 16:53] LABS: Hematocrit (blood only) 31.2 % (42-52); Mean Corpuscular Hemoglobin 29.6 pg (25-34); Mean Corpuscular Hgb Conc 32.1 g/dL (32-36); Mean Corpuscular Volume 92.3 fL (80-100); Mean Platelet Volume 9.5 fL (7.4-10.4); Platelet Count 317 K/uL (130-400); RDW Coefficient of Variation 14.6 % (11.5-14.5); RDW Standard Deviation 49.5 fL (36.4-46.3); Red Blood Count 3.38 M/uL (4.7-6.1); White Blood Count 10.12 K/uL (4.8-10.8)
[2021-06-13 17:13] LABS: C Reactive Protein 4.87 mg/dl (0-0.29); Calcium 8.7 mg/dl (8.5-10.1); Creatinine Clr Calc Pharmacy 124.1 ml/min; Est GFR (African American) 108.7 ml/min; Est GFR (Non-African American) 93.7 ml/min
[2021-06-13] MEDS: TOPIRAMATE 100 MG TAB PO SCH (21:39)
[2021-06-13] MEDS: traZODone HCL 100 MG TAB PO SCH (21:40)
[2021-06-13] MEDS: PANTOprazole 40 MG TAB PO SCH (21:40)
[2021-06-13] MEDS: MONTELUKAST SODIUM 10 MG TABLET PO SCH (21:40)
[2021-06-13] MEDS: ATORVASTATIN 20 MG TAB PO SCH (21:41)
--- NOTE | 2021-06-13 23:39 | Communication Note ---
Date of Service: June 13, 2021 Pt's vital signs continue to remain stable. Labs from today reviewed - stable Hb of 10, normal creatinine, Na level 134. 06/07 blood cultures negative. Blood cultures from [facility] negative. CRP noted to continue to improve. Remains on IV ancef TID and rifampin 300mg BID per ID recommendations. Antibiotics x 6-8 weeks. PICC line is in place. Recent LFTs wnl. Lisinopril and bumex still on hold as BPs were normal without them, and volume status has been appropriate. Can likely resume bumex tomorrow. Resume lisinopril at discharge. Patient will need weekly labs while on the above medications. Awaiting SNF placement for rehab. All other medical problems appear stable. We will sign off for now. Please reconsult if needed. Thank you for allowing us to be involved in Mr Abdi's care. Giancarlo Perez MD
[2021-06-14] MEDS: oxyCODONE HCL IR 5 MG TAB (IMMEDIATE RELEASE) PO PRN ×2 (04:47→14:26)
[2021-06-14] MEDS: ceFAZolin 2000MG 2,000 MG/15 ML SYR IV SCH ×2 (05:50→14:26)
[2021-06-14] MEDS: CETIRIZINE HCL 10 MG TABLET PO SCH (09:13)
[2021-06-14] MEDS: PRIMIDONE 50 MG TAB PO SCH (09:14)
[2021-06-14] MEDS: ADVANCED PROBIOTIC 1250 MG CAPSULE PO SCH (09:14)
[2021-06-14] MEDS: CHOLECALCIFEROL 1,000 UNITS 25 MCG TAB PO SCH (09:14)
[2021-06-14] MEDS: TAMSULOSIN HCL 0.4 MG CAP PO SCH (09:14)
[2021-06-14] MEDS: PROPRANOLOL HCL 80 MG TAB PO SCH (09:15)
[2021-06-14] MEDS: allopurinoL 300 MG TAB PO SCH (09:15)
[2021-06-14] MEDS: DULoxetine HCL 60 MG CAP PO SCH (09:15)
[2021-06-14] MEDS: rifAMPin 300 MG CAPSULE PO SCH (09:15)
[2021-06-14] MEDS: GABAPENTIN 600 MG TAB PO SCH (09:15)
[2021-06-14] MEDS: busPIRone 15 MG TAB PO SCH (09:16)
[2021-06-14] MEDS: ASPIRIN 81 MG ECTAB PO SCH (09:17)
[2021-06-14] MEDS: DOCUSATE SODIUM 100 MG CAP PO SCH (09:19)
[2021-06-14] MEDS: BACLOFEN 10 MG TAB PO SCH (09:19)
--- NOTE | 2021-06-14 09:49 | Orthopedic Progress Note ---
Date of Service June 14, 2021 Assessment & Plan (1) Infection of total left knee replacement: Plan: POD 7 s/p explant infected Left TKA; Irrigation and debridement; Implantation antibx articulated spacer left knee. Cx showing MSSA. ID recs appreciated. Discussion with Dr. Lubin (ID team) through [place] text as well as Dr Villatoro, have decided on Cefazolin/Rifampin x 6-8 weeks. PICC line placed DC Prevena today PT/OT. WBAT with immobilizer on. Gentle ROM 0-60 at bedside with PT. Progressing well. DVT Prophylaxis - currently BID ASA Pain management as written. DC planning - waiting to hear from Rehab/SNF; If no word by later this AM, will likely dc to home with Home Health services. Admission and Anticipated Discharge Date Admission Date: June 07, 2021 Subjective POD 7 Pt sitting up in chair at bedside. No complaints this AM. PT is present and getting ready to go through his session with him. Pt states that if we do not hear of any bed availability at SNF/Rehab, that he would like to go home today. He states today would be one of the few days this week that he has a ride. No other concerns at this time. Physical Exam Physical Exam: Pt wearing immobilizer. Loosening reveals Prevena dressing intact. No overt drainage in tubing/container. Calves soft, NT. NV intact. Results & Data ([facility]) Vital Signs (Past 12 Hours) Vital Signs Temp Pulse Resp BP Pulse Ox 06/14/21 07:51 36.6 C 85 18 119/75 97 06/13/21 22:27 36.7 C 90 18 129/71 96 (1) Infection of total left knee replacement Encounter type: initial encounter Qualified Code(s): T84.54XA - Infection and inflammatory reaction due to internal left knee prosthesis, initial encounter
[2021-06-14] MEDS: DICLOFENAC SOD 1% GEL 100 GM TUBE EXT SCH ×2 (11:12→14:27)
--- NOTE | 2021-06-16 13:00 | Discharge Summary ---
Date of Service June 16, 2021 Admission HPI Per Admitting Provider Patient is a 66-year-old white male known to our practice who is status post left total knee arthroplasty in November 2020. Patient had a normal postoperative recovery however in March 2021, he was found to have MSSA infection of the left TKA. At that time he underwent open irrigation debridement with a placement of a PICC line prior to discharge and was discharged home on IV antibiotics for 6 weeks with follow-up with infectious disease from [facility] service. Patient states that he had just finished his antibiotics approximately 1-1/2 weeks ago. He states that he had a follow-up appointment with infectious disease this coming Monday with the possibility of being started on oral antibiotics. He states that this past Monday he began noticing some increased discomfort in his left knee. He began having increased swelling of the left knee and the pain continued to worsen. He had difficulty with weightbearing on ambulation. He states he was been able to bend the knee however its been mild to moderately painful in doing so. He denies any fevers, chills, nausea or vomiting at home. Denies any flu or cold-like symptoms and no increased cough or sputum production. Denies shortness of breath. He decided to go the emergency room and [place] area where he resides, over this past weekend. [facility] [place] to have him transferred down to [facility] however there was no beds available. He was then discharged in the emergency room at [facility] on oral antibiotics and came down to [facility] emergency room. Currently he is lying in his bed awake and alert. He complains of left knee pain. Currently denies fevers, chills, nausea or vomiting. He states he feels fairly well overall other than his left knee pain. Admission Exam Per Admitting Provider Physical Exam Constitutional: WD/WN, vitals as above Eyes: PERRL, conjunctivae normal, anicteric sclerae ENMT: external ear and nose normal, oropharynx normal Neck: trachea midline, no thyromegaly Respiratory: normal respiratory effort, lungs clear to auscultation Cardiovascular: RRR, no murmur, no edema Gastrointestinal (Abdomen): normal bowel sounds, soft, nontender, no hepatosplenomegaly Musculoskeletal: On examination of his left knee, he has a well-healed incision from his previous irrigation debridement. The knee is swollen compared to the right knee. The left knee feels warmer to touch than the right knee. I am able to take him through gentle range of motion of the left knee with mild to moderate pain in the knee itself. Axial loading does cause him increased pain in the knee itself. Palpation over the patella mostly causes some discomfort. Left calf is slightly tender on palpation and has increased pain with passive dorsiflexion of the left ankle. He also has increased pain with the passive dorsiflexion of the ankle of the knee. Left ankle is nontender on palpation. Venous stasis changes noted on both lower extremities. Pulses faint but palpable bilaterally of the DPP. Capillary refill is less than 2 seconds. Denies numbness or tingling in the feet at this time. Range of motion of both ankles is intact. Right lower extremity is unaffected and range of motion is within normal limits. He does complain of some mild right knee pain which she states he has had since having to be more weightbearing on the right side secondary to his left knee pain. Upper extremities are unaffected and he is nontender at the shoulders, elbows, and wrist. There is no gross motor or sensory loss seen at this time. Skin: no rashes, warm and dry Principal Diagnosis Infected left TKA Discharge Data Allergies Allergy/AdvReac Type Severity Reaction Status Date / Time No Known Allergies Unverified 06/07/21 07:51 Consultations 06/07/21 08:45 Consult Internal Medicine Routine 06/07/21 08:57 ED Decision to Admit Stat 06/08/21 21:49 Consult Infectious Diseases Routine Procedures Performed Operation Date: 06/07/21 08:10 Actual Procedures p Left Total Knee: Explant of Hardware, Incision and Drainage, Implantation Articulated Antibiotic Spacer(Left) - Anand Villatoro DO Ordered Studies 06/07/21 08:37 US venous doppler LE LT Routine Hospital Course (1) Infection of total left knee replacement: Patient was admitted on the above-noted date with suspected left TKA infection. Aspiration of the knee was done and cell count was showing 117,000 WBCs, no crystals, elevated CRP and sed rate with eventual Gram stain showing moderate amount of gram-positive cocci which ended up being MSSA.[facility] hospitalist service was consulted for preoperative medical clearance after noted infection was realized. The patient was then taken to the operating room the same day were an open irrigation and debridement was performed with explantation of hardware and reimplantation of articulated antibiotic spacer by Dr. Villatoro. The patient tolerated the procedure well and was taken to recovery room in stable condition. He was continued on IV vancomycin initially. Infectious disease consult was placed and eventually performed on 06/09/[address] Lubin. After discussion with Dr. Lubin as well as Dr. Villatoro, cefazolin was chosen 2 g IV every 8 hours along with the addition of rifampin twice daily with cultures showing MSSA from previous aspirate and also intraoperative cultures performed at the time of surgery. Patient was then started on PT OT protocols and continued on DVT prophylaxis and pain management. After initial attempt with physical therapy, the patient felt that he would like to go to a rehab type facility post discharge before going home. However this proved difficult in finding a suitable place for him to go. Many snf facilities or rehab facilities were full at that time. As time progressed, the patient continued to progress well with his physical therapy to the point that therapy was recommending patient could go home after ambulating over 200 feet. Patient also felt that he could go home and be taken care of by home health services as well as family. A PICC line was placed earlier during his stay. Case management arranged home health services with IV antibiotics and home nursing as well as PT. Serial CRPs were ordered during the patient's stay and were slowly going down. Prevena wound dressing was removed on postop day 7 which revealed an intact suture line with minimal to no erythema and swelling consistent with surgery. Calves continue to remain soft and nontender neurovascular is intact toes are mobile. By 06/14/2021 patient continue remain medically stable is orthopedically stable and was felt he be discharged to home on IV and p.o. antibiotics. Arrangements were made for home health services and patient would have weekly lab draws which will be sent to Dr. Lubin as well as Dr. Villatoro. Dr. Lubin to change antibiotics as necessary. Total Time Total Time Spent Total Time Spent (In Minutes): 10 Discharge Plan Discharge Items Patient Disposition: Home - Home Health Services Reason For Visit: R/O INFECTED LEFT TKA Discharge Diagnosis: Infectect left TKA Activity: Per Instructions section Weightbearing: Left weightbearing Weightbearing Comment: as tolerated with immobilizer on for stability. Non-emergency contact: Surgeon Call non-emergency contact if: you have any medication questions, your pain is not controlled, your temperature is above 101.5, your wound has increased redness and your wound has increased drainage Follow-up/Referrals: Anand Villatoro DO [Surgeon] - (follow up in 1 week for wound check and possible staple removal. ) Chalo nAderson DO [Primary Care Provider] - Sergei Michel MD [Physician] - (Follow up in 2 weeks for ID team check. ) Diet: Regular Addtl Attending Provider Instructions: YOU MUST WEAR YOUR IMMOBILIZER WHILE AMBULATING TO HELP WITH STABILITY. YOU MAY REMOVE THE IMMOBILIZER FOR DOING RANGE OF MOTION EXERCISES. YOU MAY BEGIN TO DO GENTLE RANGE OF MOTION FROM 0-90 DEGREES. YOU WILL BE HAVING HOME HEALTH SERVICES PROVIDE HELP WITH YOUR IV ANTIBIOTICS AND PICC LINE. YOU WILL BE HAVING WEEKLY BLOOD WORK SENT TO DR VILLATORO AND TO DR MICHEL FROM THE ID TEAM. DR MICHEL WILL ADJUST YOUR ANTIBIOTIC NEEDED. ACTIVITY RECOMMENDATIONS: SELF CARE INSTRUCTIONS AFTER TOTAL KNEE REPLACEMENT A. You may need to continue a physical therapy program after discharge from the hospital. There are several options available to you. Your doctor will assist you in selecting the best one for you. 1. An out-patient facility 2 to 3 times a week for therapy or home therapy. 2. Continue working on all exercises taught to you in the hospital. Your goals should be to increase bending of your knee to 90 degrees and beyond and to fully straighten your knee. B. You may progress at your own pace from walking with a walker or crutches to a cane; then to no assistive devices. C. Make walking a part of your daily routine. Be up as much as comfortable with rest periods throughout the day. Rest with leg elevation is very important. Use the ice wrap frequently for the first 3-4 weeks. D. There are no restrictions on activities. You may ride in a car, shop, participate in home office claim specialist and all social activities. E. Wear the long elastic stockings (YASMEEN hose) 20 hours a day for 2 weeks after surgery. They can be removed several times a day for laundering and for a bath. F. You may shower, no tub baths until cleared by your doctor. SPECIAL CARE INSTRUCTIONS: VERY IMPORTANT TO READ AND REVIEW A. There are a few signs you need to watch for after you are home. Call [facility] if you notice any of the followin. Increased severe knee pain. Some pain is expected especially when you exercise. 2. Increased swelling in your leg or knee; pain or swelling of the calf muscle in either lower leg. 3. Any fluid drainage from the incision. 4. Shortness of breath or chest pain. B. Please call [facility] at if you have any concerns or questions about your operation or recovery. The doctor or his nurse will return your call promptly. C. You must take antibiotics before dental work, bladder, bowel or other surgery. Your doctor will provide you with a permanent care to carry describing this precaution. IMPORTANT: * REMEMBER TO TAKE ASPIRIN, 81 MG, TWICE DAILY FOR 4 WEEKS UNLESS OTHERWISE DIRECTED. THIS IS YOUR BLOOD THINNER.. * CALL IF INCREASED PAIN, REDNESS, DRAINAGE OR FEVER GREATER THAT 101. * WEAR YASMEEN HOSE 20 HOURS PER DAY FOR 2 WEEKS. * DAILY DRESSING CHANGES. KEEP WOUND COVERED WITH 4X4 GAUZE OR ABD'S. MAY USE AN ERUM WRAP TO KEEP DRESSING IN PLACE. . FOLLOW UP VISIT: If appointment is not already scheduled: Please call [facility] to make a follow-up appointment for 1 week at . Stand-Alone Forms: My [facility], Smoking Cessation Medications and DC Order Prescriptions: New aspirin 81 mg Tablet,Delayed Release (Dr/Ec) 81 mg PO BID 28 Days Qty: 56 RF: 0 acetaminophen [Tylenol Extra Strength] 500 mg Tablet 1,000 mg PO Q8H PRN (Reason: fever or pain) 14 Days Qty: 84 RF: 0 rifampin 300 mg Capsule 300 mg PO BID 30 Days Qty: 60 RF: 0 docusate sodium 100 mg Capsule 100 mg PO BID 14 Days Qty: 28 RF: 0 polyethylene glycol 3350 [Miralax] 17 gram powder in packet 17 g PO DAILY PRN (Reason: constipation) Qty: 5 RF: 0 cefazolin 1 gram recon soln 2 g IV Q8H Qty: 25 RF: 0 Continued primidone 50 mg Tablet 50 mg PO DAILY RF: 0 propranolol 80 mg Tablet 80 mg PO QAM RF: 0 atorvastatin 20 mg Tablet 20 mg PO QPM RF: 0 tamsulosin 0.4 mg Capsule 0.4 mg PO QAM RF: 0 trazodone 100 mg Tablet 100 mg PO HS RF: 0 baclofen 10 mg Tablet 10 mg PO BID RF: 0 pantoprazole [Protonix] 40 mg Tablet,Delayed Release (Dr/Ec) 40 mg PO QPM RF: 0 buspirone 30 mg Tablet 30 mg PO BID RF: 0 bumetanide 0.5 mg Tablet 0.5 mg PO BID RF: 0 montelukast 10 mg Tablet 10 mg PO HS RF: 0 allopurinol 300 mg Tablet 300 mg PO QAM RF: 0 lisinopril 5 mg Tablet 5 mg PO QAM RF: 0 topiramate 100 mg Tablet 100 mg PO HS RF: 0 duloxetine 60 mg Capsule,Delayed Release(Dr/Ec) 60 mg PO BID RF: 0 levocetirizine 5 mg Tablet 5 mg PO QAM RF: 0 ferrous sulfate 134 mg (27 mg iron) Tablet 0 mg PO DAILY RF: 0 cholecalciferol (vitamin D3) [Vitamin D3] 50 mcg (2,000 unit) Capsule 100 mcg PO DAILY RF: 0 gabapentin 600 mg tablet 600 mg PO BID RF: 0 Discontinued meloxicam 7.5 mg tablet 7.5 mg PO BID RF: 0 Discharge Orders: Discharge Order (Routine); Ordered 06/14/21 Ordered By: Brayan Henao Admission Data Admit Date/Time: 06/07/21 08:40 Attending Provider: Anand Villatoro Admit Provider: Anand Villatoro Primary Care Provider: Chalo Anderson Other Providers: Anand Villatoro ; Noel Britt ; Iona Cast ; Kalen Rivas I. ; Terry Gifford II ; Marah Ureña ; Sergei Michel ; Ludin Capellan. ; [facility] ; Juwan Michel Other Interventions: Discharge Summary Assessment (RN) Last Done: 06/14/21 13:58
== END 2021-06-14 15:00 | disposition home health service (06) | DRG 468 ==
LOC: ED 06:50 → ASU 11:18 → 3N 11:18 → 3W 06-08 13:49

== ENCOUNTER 2021-08-31 06:39 | Inpatient (IN) ==
--- NOTE | 2021-08-19 08:24 | PAT Medication Instructions ---
Medication Instructions Date of Service August 19, 2021 Home Medications allopurinol 300 mg tablet 300 mg PO QAM atorvastatin 20 mg tablet 20 mg PO QPM baclofen 10 mg tablet 10 mg PO BID bumetanide 0.5 mg tablet 0.5 mg PO BID buspirone 30 mg tablet 30 mg PO BID duloxetine 60 mg capsule,delayed release 60 mg PO BID levocetirizine 5 mg tablet 5 mg PO QAM lisinopril 5 mg tablet 5 mg PO QAM montelukast 10 mg tablet 10 mg PO HS pantoprazole 40 mg tablet,delayed release (Protonix) 40 mg PO QPM primidone 50 mg tablet 50 mg PO QAM propranolol 80 mg tablet 80 mg PO QAM tamsulosin 0.4 mg capsule 0.4 mg PO QAM topiramate 100 mg tablet 100 mg PO HS trazodone 100 mg tablet 100 mg PO HS cholecalciferol (vitamin D3) 50 mcg (2,000 unit) capsule (Vitamin D3) 100 mcg PO QAM gabapentin 600 mg tablet 600 mg PO BID ferrous sulfate 325 mg (65 mg iron) tablet 325 mg PO QAM DO NOT take the morning of surgery baclofen 10 mg tablet 10 mg PO BID bumetanide 0.5 mg tablet 0.5 mg PO BID levocetirizine 5 mg tablet 5 mg PO QAM lisinopril 5 mg tablet 5 mg PO QAM cholecalciferol (vitamin D3) 50 mcg (2,000 unit) capsule (Vitamin D3) 100 mcg PO QAM ferrous sulfate 325 mg (65 mg iron) tablet 325 mg PO QAM Take morning of surgery With a small sip of water, OTHERWISE NOTHING TO EAT OR DRINK AFTER MIDNIGHT: allopurinol 300 mg tablet 300 mg PO QAM buspirone 30 mg tablet 30 mg PO BID duloxetine 60 mg capsule,delayed release 60 mg PO BID primidone 50 mg tablet 50 mg PO QAM propranolol 80 mg tablet 80 mg PO QAM tamsulosin 0.4 mg capsule 0.4 mg PO QAM gabapentin 600 mg tablet 600 mg PO BID Take evening before surgery atorvastatin 20 mg tablet 20 mg PO QPM baclofen 10 mg tablet 10 mg PO BID bumetanide 0.5 mg tablet 0.5 mg PO BID buspirone 30 mg tablet 30 mg PO BID duloxetine 60 mg capsule,delayed release 60 mg PO BID montelukast 10 mg tablet 10 mg PO HS pantoprazole 40 mg tablet,delayed release (Protonix) 40 mg PO QPM topiramate 100 mg tablet 100 mg PO HS trazodone 100 mg tablet 100 mg PO HS gabapentin 600 mg tablet 600 mg PO BID Other Notes If you have any questions please call us at [phone] or [phone] or [phone] or [phone]
--- NOTE | 2021-08-19 10:27 | Anesthesiology Consultation ---
Date of Service August 19, 2021 Assessment & Plan (1) Encounter for pre-operative examination: - pt reported open skin of left knee, states surgeon's office is aware. Surgeon's office, Nickie, made aware of pt reported open skin over planned surgical site and given this chlorhexidine wipes not provided at PAT appointment and states she will relay to Dr. Villatoro. - COVID screening: Per assessment on 08/19/2021: Travel screen negative, no known COVID-19 positive contacts or current COVID-19 related symptoms in past 2 weeks. Patient vaccinated. Surgeon arranging preop COVID testing, scheduled 08/27/2021 ARABELLA Anton. Awaiting results. Chart Review Chart Review: Acceptable Risk for Surgery and Patient seen in Pre Admission Testing Teaching & Discussion Pre-Anesthesia Teaching/Discussion Notes: Instructed NPO after midnight before surgery, except medications with 15 cc of water. Medication instructions provided according to the PAT guidelines. History Surgery Operation Date: 08/31/21 12:15 Proposed Procedures p Left Knee Revision Antibiotic Spacer to TKA with Legion Stems and Wedges - Anand Villatoro DO Height/Weight Height: 6 ft 2 in Weight: 108.862 kg Allergies Allergy/AdvReac Type Severity Reaction Status Date / Time No Known Allergies Verified 08/18/21 15:13 Medications Home Medications Medication Instructions Recorded Confirmed Last Taken allopurinol 300 mg tablet 300 mg PO QAM 10/26/20 08/18/21 1 Day Ago ~04/10/21 atorvastatin 20 mg tablet 20 mg PO QPM 10/26/20 08/18/21 1 Day Ago ~04/10/21 baclofen 10 mg tablet 10 mg PO BID 10/26/20 08/18/21 1 Day Ago ~04/10/21 bumetanide 0.5 mg tablet 0.5 mg PO BID 10/26/20 08/18/21 1 Day Ago ~04/10/21 buspirone 30 mg tablet 30 mg PO BID 10/26/20 08/18/21 1 Day Ago ~04/10/21 duloxetine 60 mg capsule,delayed 60 mg PO BID 10/26/20 08/18/21 2 Days Ago release ~04/09/21 levocetirizine 5 mg tablet 5 mg PO QAM 10/26/20 08/18/21 2 Days Ago ~04/09/21 lisinopril 5 mg tablet 5 mg PO QAM 10/26/20 08/18/21 1 Day Ago ~04/10/21 montelukast 10 mg tablet 10 mg PO HS 10/26/20 08/18/21 1 Day Ago ~04/10/21 pantoprazole 40 mg tablet,delayed 40 mg PO QPM 10/26/20 08/18/21 1 Day Ago release (Protonix) ~04/10/21 primidone 50 mg tablet 50 mg PO QAM 10/26/20 08/18/21 1 Day Ago ~04/10/21 propranolol 80 mg tablet 80 mg PO QAM 10/26/20 08/18/21 1 Day Ago ~04/10/21 tamsulosin 0.4 mg capsule 0.4 mg PO QAM 10/26/20 08/18/21 1 Day Ago ~04/10/21 topiramate 100 mg tablet 100 mg PO HS 10/26/20 08/18/21 2 Days Ago ~04/09/21 trazodone 100 mg tablet 100 mg PO HS 10/26/20 08/18/21 2 Days Ago ~04/09/21 cholecalciferol (vitamin D3) 50 100 mcg PO QAM 06/07/21 08/18/21 Unknown mcg (2,000 unit) capsule (Vitamin D3) gabapentin 600 mg tablet 600 mg PO BID 06/08/21 08/18/21 Unknown ferrous sulfate 325 mg (65 mg 325 mg PO QAM 08/18/21 08/18/21 Unknown iron) tablet Past Medical History Medical History (Updated 08/19/21 @ 11:06 by Osiris Knowles PA-C) Anxiety BPH (benign prostatic hyperplasia) Chronic back pain Depression GERD (gastroesophageal reflux disease) controlled stable per pt Hx of bladder cancer 2018 had chemo in bladder and no problem since Hyperlipidemia Hypertension controlled, stable per pt Nonobstructive atherosclerosis of coronary artery Per review of [facility] records, non-obstructive CAD by 2008 heart cath. Cardiac c ath done 05/31/[address] [facility] for NSTEMI with chest pain following a back surgery done at [facility] (POD1). 2009 cath also showed nonobstructive CAD, ACS ruled out, medically managed for risk factor modification. Echo done 06/01/10 showed preserved EF 55-60%. NSTEMI (non-ST elevated myocardial infarction) 2009, POD1 after back surgery, transferred from [facility] to [facility] for cath. Cath nonobstructive. Osteoarthritis PONV (postoperative nausea and vomiting) Sleep apnea no device currently, waiting to receive device Patient denies h/o stroke, seizures, heart failure, DM, blood clots or blood transfusions. Exercise / Class Metabolic Activity III < 4 Walking/Shop/Light housework (denies CP or SOB) Past Family History Family History Father Colorectal cancer Mother Congestive heart disease Other No family history of adverse response to anesthesia Past Surgical History Surgical History (Updated 08/19/21 @ 11:06 by Osiris Knowles PA-C) History of arthroscopy of left knee History of cardiac cath x2--[place] [facility] ([place]); last 2009, "mild." No stents. @ [facility] History of incision and drainage left knee History of left knee surgery Left Total Knee: Explant of Hardware, Incision and Drainage, Implantation Articulated Antibiotic Spacer(Left) size 11 persona CR provisional 10 mm constrained polythirty 5 x 9 patella with antibiotic spacer 06/07/2021: LMA#5, atraumatic x 1. No issues per anesthesia postop progress note. History of open reduction and internal fixation (ORIF) procedure right arm History of rotator cuff surgery bilat, Lx 2 History of total left knee replacement 12/01/2020: SAB at L3-L4, 1 attempt + PNB. No issues per anesthesia postop progress note. Hx laparoscopic cholecystectomy Hx of arthroscopy of shoulder bilat Hx of bilateral cataract extraction Hx of colonoscopy Hx of cystoscopy Hx of esophagogastroduodenoscopy Hx of fusion of cervical spine Hx of gastric bypass states gastric sleeve 2013 - lost 60'pema pounds Hx of tonsillectomy Past Anesthesia History No Hx of Anesthesia Complications and No Family Hx of Anesthesia Complications History of PONV No Hx of Motion Sickness and History of PONV Social History Smoking Status: Never smoker Do You Dip or Chew Tobacco: No Hx Alcohol Use: Yes Alcohol type: beer and wine alcohol intake frequency: holidays/special occasions only Hx Substance Use: No substance use type: does not use Review of Systems Patient denies chest pain, shortness of breath, dyspnea on exertion, fever, chills, cough, wheezing, or palpitations. Physical Exam Vital Signs Vitals BP 100/63 (usual range per pt) P 63 TEMP 98.7 SP02 100% on RA RESP 17 Physical Full cervical extension range of motion without pain Full TMJ range of motion TMD 3.5 finger breaths Mallampati Score 3 Dentition: intact, several missing teeth back upper and lower bilat; denies chipped or loose teeth, caps/crowns, implants or bridges Lungs: normal respiratory effort. Clear throughout to auscultation, no adventitious breath sounds Cardiac: regular rate and rhythm, no murmurs noted Carotid arteries: negative bruit bilat Extremities: no distal extremity edema Testing Laboratory Results 07/19/2021 WBC: 6.98 H/H: 11.3/36.2 PLATELETS: SODIUM: 133 POTASSIUM: 4.0 CHLORIDE: 100 CO2: 26.2 BUN: 8.9 CREATININE: 0.76 GLUCOSE: 115 Electrocardiogram Date: 08/19/21 Sinus bradycardia, rate 56 bpm Chest X-Ray Date: 08/19/21 FINDINGS: No lines and tubes are seen. Mild prominence of the cardiac silhouette is seen. The lungs are clear. No evidence of pleural effusion or pneumothorax. IMPRESSION: No acute chest disease.
--- NOTE | 2021-08-25 11:44 | History & Physical Report ---
Date of Service August 25, 2021 date of surgery: 08/31/21 Procedure: Left Knee Revision Antibiotic Spacer to TKA with Legion Stems and Wedges Surgeon: Dr Viktor Villatoro Assessment & Plan (1) Infection of total left knee replacement: Plan: Further care discussed with patient and at this point in time his knee aspiration is negative for growth, negative gram stain. he would like to proceed with removal of antibiotic spacer with revision left total knee replacement. Plan on discharge will be home with home health physical therapy. DVT prophylaxiswith TEDs, SCDs and will also place on aspirin 81 mg p.o. b.i.d. for a month postop. Patient will have follow up appointment in our office two weeks post op for staple removal and re-evaluation. Patient otherwise has no other questions or concerns. The risks and benefits have been discussed including, but not limited to, risk of infection, nerve injury, stiffness, loss of motion, failure to improve, etc. Reasonable outcomes and options of treatment were discussed. An explanation of appropriate alternatives to the procedure that may be advantageous were discussed and their risks and benefits, as well as the risks and benefits of not proceeding with treatment. I offered to answer any additional inquiries co ncerning the treatment involved. All the patient's questions were answered. The patient is agreeable, understanding of the treatment plan and alternatives, and wishes to proceed with the treatment plan. History of Present Illness Chief Complaint: Left knee pain Primary Care Provider: NO PCP Mr Abdi is a 66 year old male who presents for history and physical prior to left knee removal of antibiotic spacer and revision left total knee replacement. he underwent a left TKA by Dr Villatoro on 12/01/20. he originally responded well, however in he began having increased pain and swelling in his knee. He subsequently underwent Left knee irrigation and debridement with poly exchange on 04/12/21. He also completed 6 weeks of Cefazolin at that time. Patient stated that he had just finished his antibiotics and then approximately 2 weeks later began having increased discomfort and swelling in his left knee. He was again aspirated and positive for MSSA. at that time decision was made to undergo explant of hardware and placement of antibiotic spacer on 06/07/21. He has since that time completed course of Rifampin and Cefazolin, he has his knee aspirated 08/13/[address] Villatoro which showed a negative gram stain and no growth on culture. at this time, he would like to proceed with removal of antibiotic spacer with revision left total knee arthroplasty. Allergies Allergy/AdvReac Type Severity Reaction Status Date / Time No Known Allergies Verified 08/18/21 15:13 Home Medications Medication Instructions Recorded Confirmed Type allopurinol 300 mg tablet 300 mg PO QAM 10/26/20 08/18/21 History atorvastatin 20 mg tablet 20 mg PO QPM 10/26/20 08/18/21 History baclofen 10 mg tablet 10 mg PO BID 10/26/20 08/18/21 History bumetanide 0.5 mg tablet 0.5 mg PO BID 10/26/20 08/18/21 History buspirone 30 mg tablet 30 mg PO BID 10/26/20 08/18/21 History duloxetine 60 mg capsule,delayed 60 mg PO BID 10/26/20 08/18/21 History release levocetirizine 5 mg tablet 5 mg PO QAM 10/26/20 08/18/21 History lisinopril 5 mg tablet 5 mg PO QAM 10/26/20 08/18/21 History montelukast 10 mg tablet 10 mg PO HS 10/26/20 08/18/21 History pantoprazole 40 mg tablet,delayed 40 mg PO QPM 10/26/20 08/18/21 History release (Protonix) primidone 50 mg tablet 50 mg PO QAM 10/26/20 08/18/21 History propranolol 80 mg tablet 80 mg PO QAM 10/26/20 08/18/21 History tamsulosin 0.4 mg capsule 0.4 mg PO QAM 10/26/20 08/18/21 History topiramate 100 mg tablet 100 mg PO HS 10/26/20 08/18/21 History trazodone 100 mg tablet 100 mg PO HS 10/26/20 08/18/21 History cholecalciferol (vitamin D3) 50 100 mcg PO QAM 06/07/21 08/18/21 History mcg (2,000 unit) capsule (Vitamin D3) gabapentin 600 mg tablet 600 mg PO BID 06/08/21 08/18/21 History ferrous sulfate 325 mg (65 mg 325 mg PO QAM 08/18/21 08/18/21 History iron) tablet Past Med/Surg History Medical History Anxiety BPH (benign prostatic hyperplasia) Chronic back pain Depression GERD (gastroesophageal reflux disease) controlled stable per pt Hx of bladder cancer 2018 had chemo in bladder and no problem since Hyperlipidemia Hypertension controlled, stable per pt Nonobstructive atherosclerosis of coronary artery Per review of [facility] records, non-obstructive CAD by 2008 heart cath. Cardiac cath done 05/31/10 at [facility] for NSTEMI with chest pain following a back surgery done at [facility] (POD1). 2009 cath also showed nonobstructive CAD, ACS ruled out, medically managed for risk factor modification. Echo done 06/01/10 showed preserved EF 55-60%. NSTEMI (non-ST elevated myocardial infarction) 2009, POD1 after back surgery, transferred from [facility] to [facility] for cath. Cath nonobstructive. Osteoarthritis PONV (postoperative nausea and vomiting) Sleep apnea no device currently, waiting to receive device Surgical History History of arthroscopy of left knee History of cardiac cath x2--2008 @ [facility] (no stents); last 2009, "mild." No stents. @ [facility] History of incision and drainage left knee History of left knee surgery Left Total Knee: Explant of Hardware, Incision and Drainage, Implantation Articulated Antibiotic Spacer(Left) size 11 persona CR provisional 10 mm constrained polythirty 5 x 9 patella with antibiotic spacer 06/07/2021: LMA#5, atraumatic x 1. No issues per anesthesia postop progress note. History of open reduction and internal fixation (ORIF) procedure right arm History of rotator cuff surgery bilat, Lx 2 History of total left knee replacement 12/01/2020: SAB at L3-L4, 1 attempt + PNB. No issues per anesthesia postop progress note. Hx laparoscopic cholecystectomy Hx of arthroscopy of shoulder bilat Hx of bilateral cataract extraction Hx of colonoscopy Hx of cystoscopy Hx of esophagogastroduodenoscopy Hx of fusion of cervical spine Hx of gastric bypass states gastric sleeve 2013 - lost 60'pema pounds Hx of tonsillectomy Family History Father Colorectal cancer Mother Congestive heart disease Other No family history of adverse response to anesthesia Social History Smoking Status: Never smoker Second Hand Exposure: No; Hx Alcohol Use: Yes Alcohol type: beer and wine Hx Substance Use: No Preferred Language: Syriac Communication Ability: Effective 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: No Beliefs That Will Affect Care: None marital status: marital status details: lives with in [place] Current Living Situation: Spouse and Family Current Living Situation Comment: Lives with , niece and niece's daughter current occupational status: retired 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; 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[employer] in [facility] How many Children do You have: 0 Feels Safe at Home: Yes Assistive Devices: Cane and Glasses Review of Systems Review of Systems: All systems reviewed & are unremarkable except as noted in HPI & below Constitutional: no fever, no chills and no sweats Respiratory: no cough and no dyspnea Cardiovascular: no chest pain, no dyspnea and no orthopnea Gastrointestinal: no abdominal pain, no nausea and no vomiting Musculoskeletal: as per Subjective / HPI Physical Exam Physical Exam: HT: 6ft 2in WT: 108.86 Constitutional: WD/WN, vitals as above no acute distress Respiratory: normal respiratory effort, lungs clear to auscultation no respiratory distress, no labored breathing and does not use accessory muscles Cardiovascular: RRR, no murmur, no edema Gastrointestinal (Abdomen): normal bowel sounds, soft, nontender, no hepatosplenomegaly Musculoskeletal: Left Knee Exam Ambulates with a limp and knee immobilizer, overall neutral alignment, there is no warmth or ecchymosis noted, mild effusion, maximum tenderness medial joint line. Pain with Active range of motion, also passive painful ROM, Range of motion 0/5/90. No pain with active/passive ROM of ankle. Lower Extremity Strength normal. Lower Extremity Neuro-vascular is normal Results & Data Results & Data ([facility]) Diagnostic Findings xrays showing s/p removal total knee with placement of antibiotic spacer. no acute bony pathology. (1) Infection of total left knee replacement Encounter type: initial encounter Qualified Code(s): T84.54XA - Infection and inflammatory reaction due to internal left knee prosthesis, initial encounter
[~2021-08-31 06:39] MED LIST: ACETAMINOPHEN 500 MG TAB PO SCH; BUPIVACAINE 0.5 % 5 MG/1 ML PF 10ML VIAL ONE; CeleBREX 200 MG CAP PO SCH; FAMOTIDINE 20 MG TAB PO SCH; GABAPENTIN 300 MG CAP PO SCH; LR 500ML BOLUS, THEN 15ML/HR IV SCH; METOCLOPRAMIDE HCL 10 MG TABLET PO SCH; ROPIVACAINE 0.5% 5 MG/ML 30 ML VIAL ONE; ROPIVACAINE 0.5% HCL/PF 150 MG, BUPIVACAINE 0.75% MPF 20 ML, EPINEPHrine 30MG/30ML (OR ... INFIL SCH; TRANEXAMIC ACID 1,000 MG **IV Intra-op IV SCH; TRANEXAMIC ACID 1,000 MG **IV Pre-op IV SCH; dexAMETHasone 4 MG TAB PO SCH; oxyCODONE HCL 10 MG TABCR (OxyCONTIN) PO SCH
--- NOTE | 2021-08-31 07:33 | History & Physical Bridge Note ---
Date of Service August 31, 2021 History & Physical Bridge Note I have examined the patient, reviewed the History & Physical and in the interval since the performance of the History & Physical I have noted the following changes of clinical significance: no changes noted
[2021-08-31] MEDS ORDERED: MIDAZOLAM HCL 1 MG/ML 2ML VIAL ONE (08:04)
[2021-08-31] MEDS ORDERED: KETAMINE 50 MG/5 ML SYRINGE ONE (08:04)
[2021-08-31] MEDS ORDERED: ePHEDrine sulfate 50 MG/ML AMP IV PRN (08:25)
[2021-08-31] MEDS ORDERED: ONDANSETRON INJ 2 MG/ML 2 ML VIAL IV PRN ×2 (08:25→15:46)
[2021-08-31] MEDS ORDERED: fentaNYL citrate 100 MCG/2 ML VIAL IV PRN (08:25)
[2021-08-31] MEDS ORDERED: ATROPINE SULFATE 0.1 MG/ML 10ML SYR IV PRN (08:25)
[2021-08-31] MEDS ORDERED: ORTHO JOINT ANESTHETIC ONE (09:24)
[2021-08-31] MEDS ORDERED: ONDANSETRON INJ 2 MG/ML 2 ML VIAL ONE (10:36)
[2021-08-31] MEDS ORDERED: KETOROLAC 30 MG/ML VIAL ONE (10:36)
[2021-08-31] MEDS ORDERED: PROPOFOL IV EMULSION 10 MG/ML 20 ML VIAL IV ONE ×4 (10:36→13:33)
[2021-08-31] MEDS ORDERED: LIDOCAINE 2% 2 ML VIAL/AMP(20MG/ML) INFIL ONE (10:36)
[2021-08-31] MEDS ORDERED: ePHEDrine sulfate 50 MG/ML AMP ONE (10:36)
[2021-08-31] MEDS ORDERED: DEXAMETHASONE SOD INJ 4 MG/ML VIAL ONE (10:36)
--- NOTE | 2021-08-31 12:50 | Operative Report ---
Post Operative Report Pre & Post Diagnosis Operation Date: 08/31/21 08:55 Pre-Op Diagnosis: Left Knee Antibiotic Spacer Post-Op Diagnosis: Left Knee Antibiotic Spacer I identified the patient and participated in the time-out.: Yes Procedure Operation Date: 08/31/21 08:55 Actual Procedures p Left Knee Revision Antibiotic Spacer to Total Knee Arthroplasty with Legion(Left) - Anand Villatoro DO Surgeon Anand Villatoro DO Estimated Blood Loss 20 I attest to the content of the Intraoperative Record and any orders documented therein. Any exceptions are noted below.
--- NOTE | 2021-08-31 12:58 | Operative Report ---
Post Operative Report Pre & Post Diagnosis Operation Date: 08/31/21 08:55 Pre-Op Diagnosis: Left Knee Antibiotic Spacer Post-Op Diagnosis: Left Knee Antibiotic Spacer I identified the patient and participated in the time-out.: Yes Procedure Operation Date: 08/31/21 08:55 Actual Procedures p Left Knee Revision Antibiotic Spacer to Total Knee Arthroplasty with Legion Stems and Wedges utilizing femur size 7 with a 20 x 160 stem 6 mm offset set at 7:00 5 mm distal wedge medial and lateral 5 mm posterior wedge lateral tibia size 5 with a 16 x 120 stem 0 offset polyfive 6 x 11 constrained patella 32 oval Anand Villatoro DO Surgeon Anand Villatoro DO Mother Repairer Brayan BILLINGSLEY Estimated Blood Loss 20 Findings Consistent with Post-Op Diagnosis Patient presents after having had an infected total knee arthroplasty with antibiotic spacer preoperative Synovasure cultures revealed no evidence of infection intraoperative Gram stain revealed no evidence of infection preoperative sed rate CRP were within normal limits antibiotic spacer was in place Specimens Bone removed cement articulated spacer Drains Medium bore Hemovac Anesthesia Type MAC Spinal Regional Complications none Disposition Accompanied Patient To Recovery: No Disposition: Recovery Room Indications Patient prevent presents for a reimplantation of total knee arthroplasty and removal cement articulated antibiotic spacer after being treated for infection Description of Procedure After initiation of general anesthesia the left lower extremity was socially prepped and draped usual fashion surgeon's type utilize #10 blade incision made over the region of the anterior aspect of the left knee dissection carried down through subtenons tissue to the region of the extensor mechanism a medial parapatellar incision made in the region of the previous arthrotomy there is marked thickening scar tissue which was all removed from both medial lateral gutters a proximal quad snip was necessary in order to obtain visualization due to heavy scarring and marked thickening of soft tissues subsequently the distal femoral cemented component was removed utilizing a series of orders chisels and rongeurs the tibial articulating spacer were component was removed as well as the bone cement the patellar articulated patellar button was removed socially having performed a thorough irrigation debridement lavage all particular matter debris was removed synovial tissue sent from the interfaces of both tibia and femur a stat Gram stain was also obtained revealing and no evidence of infection the wound was irrigated with copious amounts of sterile saline solution via pulsatile lavage and subsequently the femur and tibial intramedullary successively increasing size reamers were used to create a 20 mm x 160 stem for the femur and a 16 x 120 stem on the tibia after the appropriate reamers had been reamed to the appropriate fill of the canal the distal guide was placed a 6 mm offset on the femur set at 7:00 gave excellent coverage of the distal femoral area the chamfer cuts were made posterior cuts were made a 5 mm augment was necessary for the distal cuts medial and lateral a 5 mm augment was necessary for the posterior lateral femoral condyle excellent the fit of the prosthesis was noted with the trial components socially having removed the trial component the proximal tibia was then evaluated soft tissue was debrided scar tissue was removed the tibial osteotomy was made with intramedullary guide a excellent surface and was noted to be present for seating of the 5 x 1.16 x 120 tibial stem with a 0 offset the components and trial polywere then placed with a 11 mm constrained polygave excellent stability in both flexion mid flexion extension full stance was obtained flexion to 115 degrees was obtained patellar tracking was assessed a debridement of the lateral gutter and scar tissue was performed to obtain patellar tracking within the trochlear groove subsequently the final components were brought into the field after thorough irrigation debridement lavage at this point the tourniquet had been deflated for 20 minutes the tourniquet was reinflated and meticulous hemostasis obtained to maintain the wound was irrigated once again with copious muscle sterile saline solution as well as a Betadine soak after the components have been cemented the components were cemented the following order tibia femur patella after the cement had hardened Betadine soak was performed as well as a thorough irrigation and lavage of the wound the medial parapatellar retinaculum closed with a #1 Vicryl as well as #2 FiberWire the subcu was closed with #2-0 Vicryl skin was closed with 2-0 Vicryl and skin clips sterile compressive dressings placed as well as a knee immobilizer patient was taken to the recovery in stable condition please note a medium bore Hemovac in place in the deep wound as wellDue to the complex nature of the procedure, the entire surgery was performed with the operational assistance of brayan MOTA. The admissions assistant, under direct supervision, was involved in the actual performance of all aspects of the surgical procedure including hemostasis, tissue retraction and incision, instrument management, patient positioning, and wound closure. I attest to the content of the Intraoperative Record and any orders documented therein. Any exceptions are noted below.
[2021-08-31] MEDS ORDERED: ceFAZolin 330 MG/ML 1 GM VIAL ONE (13:50)
--- NOTE | 2021-08-31 14:52 | Anesthesiology Progress Note ---
Date of Service August 31, 2021 Anesthesia Post Procedure Vital Signs Vital Signs: Temp Pulse Pulse Resp BP Pulse Ox 08/31/21 14:30 62 14 95/51 L 96 08/31/21 14:20 58 L 12 94/67 L 100 08/31/21 14:10 57 L 12 100/56 L 100 08/31/21 14:04 36.5 C 64 12 102/57 L 100 08/31/21 07:09 36.9 C 73 20 133/69 99 Pain Intensity Left Knee: Pain Intensity: 0 Transfer of Care Handoff Completed per policy Notes Mental Status: alert / awake / arousable Patient Amnestic to Procedure: Yes Nausea / Vomiting: adequately controlled Pain: adequately controlled Airway Patency, RR, SpO2: stable & adequate BP & HR: stable & adequate Hydration State: stable & adequate Neuraxial Anesthesia: was administered and sensory block is resolving Anesthetic Complications: no major complications apparent and Pt Satisfied with anesthetic care
--- NOTE | 2021-08-31 15:10 | XRay Report ---
LEFT KNEE 2 VIEWS History: Left total knee arthroplasty. Degenerative arthritis. Postop. FINDINGS: The patient is status post a left total knee arthroplasty. The hardware is intact. No fract ure or dislocation. Skin merly and surgical drains are in place. IMPRESSION: Left total knee arthroplasty. No evidence for hardware complication. ACT 112: Negative or not required by law. Electronically signed by: Nj Pardo M.D. 08/31/2021 3:09 PM
[2021-08-31] MEDS ORDERED: NALOXONE HCL 0.4 MG/1 ML VIAL/CARP IV PRN (15:46)
[2021-08-31] MEDS ORDERED: bisacodyL 10 MG SUPP PR PRN (15:46)
[2021-08-31] MEDS ORDERED: HYDROmorphone INJ 0.5 MG/0.5 ML SYR IV PRN (15:46)
[2021-08-31] MEDS ORDERED: MAGNESIUM HYDROXIDE SUSP 30 ML UDC PO PRN (15:46)
[2021-08-31] MEDS ORDERED: oxyCODONE HCL IR 5 MG TAB (IMMEDIATE RELEASE) PO PRN (15:46)
[2021-08-31] MEDS: SODIUM CHLORIDE 0.9% 1000ML 1,000 ML IV SCH ×2 (17:47→19:39)
[2021-08-31] MEDS: ACETAMINOPHEN 500 MG TAB PO SCH (17:47)
[2021-08-31] MEDS: BUMETANIDE 1 MG TAB PO SCH (20:12)
[2021-08-31] MEDS: BACLOFEN 10 MG TAB PO SCH (20:12)
[2021-08-31] MEDS: ASPIRIN 81 MG ECTAB PO SCH (20:12)
[2021-08-31] MEDS: DULoxetine HCL 60 MG CAP PO SCH (20:14)
[2021-08-31] MEDS: GABAPENTIN 600 MG TAB PO SCH (20:14)
[2021-08-31] MEDS: busPIRone 15 MG TAB PO SCH (20:15)
[2021-08-31] MEDS: DOCUSATE SODIUM 100 MG CAP PO SCH (20:16)
[2021-08-31] MEDS ORDERED: PANTOprazole 40 MG TAB PO SCH (21:00)
[2021-08-31] MEDS ORDERED: SENNA 8.6 MG TAB PO SCH (21:00)
[2021-08-31] MEDS ORDERED: traZODone HCL 100 MG TAB PO SCH (21:00)
[2021-08-31] MEDS ORDERED: TOPIRAMATE 100 MG TAB PO SCH (21:00)
[2021-08-31] MEDS ORDERED: MONTELUKAST SODIUM 10 MG TABLET PO SCH (21:00)
[2021-08-31] MEDS ORDERED: ATORVASTATIN 20 MG TAB PO SCH (21:00)
[2021-08-31] MEDS: ceFAZolin 2000MG 2,000 MG/15 ML SYR IV SCH (21:04)
[2021-09-01] MEDS: ACETAMINOPHEN 500 MG TAB PO SCH ×2 (01:49→08:06)
[2021-09-01] MEDS: ceFAZolin 2000MG 2,000 MG/15 ML SYR IV SCH (05:47)
[2021-09-01] MEDS: busPIRone 15 MG TAB PO SCH (08:05)
[2021-09-01] MEDS: BACLOFEN 10 MG TAB PO SCH (08:05)
[2021-09-01] MEDS: DULoxetine HCL 60 MG CAP PO SCH (08:05)
[2021-09-01] MEDS: GABAPENTIN 600 MG TAB PO SCH (08:05)
[2021-09-01] MEDS: DOCUSATE SODIUM 100 MG CAP PO SCH (08:05)
[2021-09-01] MEDS: ASPIRIN 81 MG ECTAB PO SCH (08:05)
[2021-09-01] MEDS: BUMETANIDE 1 MG TAB PO SCH (08:05)
--- NOTE | 2021-09-01 08:13 | Hospitalist Consultation ---
Date of Consultation September 01, 2021 Assessment & Plan (1) Infection of total left knee replacement: POD #1 s/p Left Knee Revision Antibiotic Spacer to Total Knee Arthroplasty with Legion Stems and Wedges utilizing femur size 7 with a 20 x 160 stem 6 mm offset set at 7:00 5 mm distal wedge medial and lateral 5 mm posterior wedge lateral tibia size 5 with a 16 x 120 stem 0 offset polyfive 6 x 11 constrained patella 32 oval Anand Villatoro, DO EBL 20cc Most recent cx from office negative GS, no growth on culture Got Cefazolin pre-op (as well as dexamethasone 8mg) AM labs pending -- hgb 10.9 -- better than pre-op WBC 14.7 but did get dexamethasone, no fever Pain control, bowel regimen, PT/OT per primary service DVT proph with ASA 81mg BID Hopeful for d/c later today with home health -- dispo per primary service (2) Hypertension: BP/Cr stable Lisinopril/bumex have been continued (3) Hyperlipidemia: continue atorvastatin 20mg PM (4) GERD (gastroesophageal reflux disease): continue protonix 40mg daily (5) Depression: and anxiety continue buspirone 30mg BID, duloxetine 60mg BID, trazodone 100mg HS, propranolol 80mg, primidone 50mg AM (6) Anxiety: continue propranolol 80mg, (7) BPH (benign prostatic hyperplasia): Continue flomax, no issues with urination reported (8) Sleep apnea: Not on Rx also with allergies -- continues on Zyrtec 5mg daily, Singulair 10mg daily (9) Nonobstructive atherosclerosis of coronary artery: Per review of [facility] records, non-obstructive CAD by 2008 heart cath. Cardiac cath done 05/31/10 at [facility] for NSTEMI with chest pain following a back surgery done at [facility] (POD1). 2010 cath also showed nonobstructive CAD, ACS ruled out, medically managed for risk factor modification. Echo done 06/01/10 showed preserved EF 55-60%. Continue ASA, statin hospitalist service to sign off, likely d/c this afternoon per ortho please call with any questions/concerns Supervising Physician Co-Signing Physician Notes PA Supervision Note: I personally saw and examined the patient. I verified all ludwig points and agree with JOSE CRUZ Alatorre with the following exceptions and/or additions: S-patient feeling well, denies chest pain shortness of breath, no nausea or abdominal pain. He is eating and drinking. His pain is controlled as needed with physical therapy. He is anxious for discharge to home O- Vitals reviewed Gen: AAOx3, NAD HEENT: Anicteric sclerae, EOMI CV: RRR no mgr nl S1S2 Pulm: CTAB no wcr Abd: +BS soft NT ND no masses or hernias Ext: Left lower extremity in dressing with Jesse wrap Skin: No rashes, warm/dry Neuro: Full strength throughout A/N-00-itrp-old male with history as above, here for left total knee replacement. Doing well from a medical standpoint and is medically stable for discharge home History of Present Illness Reason for Consultation: med management Requesting Physician: Dr Villatoro Attending Physician: Anand Villatoro, History of Present Illness 66 male with PMHx significant for HTN, HLD, GERD, Anxiety, BPH, h/o NSTEMI (but cath non-obstructive), sleep apnea (not on therapy) underwent initial LEFT TKA with Dr Villatoro on 12/01/20 and had been doing well until where he had increased pain/swelling in the knee which was I&D with poly exchange on 04/12/21 and completed 6 weeks antibiotics with Cefazolin. After completing antibiotics, two weeks later had increased discomfort/swelling and had aspiration for MSSA at that time and decision was made to undergo hardware removal and placement of antibiotic spacer on 06/07/21 and since then has completed course of Rifampin and Cefazolin. Again aspirated 08/13/[address] Villatoro which was negative and no growth on culture and decision was made to proceed with removal of antibiotic spacer with revision of left total knee arthroplasty which was completed 08/31/21. Plans are to continue ASA 81mg BID for month post-op for DVT prophylaxis Patient just up and worked with therapy. Eating/drinking no issue. Pain controlled. Passing gas. Hoping for d/c later today. Has wheeled walker in room with him but does admit to two steps without railing to enter house. Discussed someone should be there for safe d/c. Home health likely to remove hemovac. No fever, chills, chest pain, shortness of breath, abd pain, nausea or vomiting at this time. Allergies Allergy/AdvReac Type Severity Reaction Status Date / Time No Known Allergies Verified 08/31/21 07:05 Home Medications Medication Instructions Recorded Confirmed Type allopurinol 300 mg tablet 300 mg PO QAM 10/26/20 08/31/21 History atorvastatin 20 mg tablet 20 mg PO QPM 10/26/20 08/31/21 History baclofen 10 mg tablet 10 mg PO BID 10/26/20 08/31/21 History bumetanide 0.5 mg tablet 0.5 mg PO BID 10/26/20 08/31/21 History buspirone 30 mg tablet 30 mg PO BID 10/26/20 08/31/21 History duloxetine 60 mg capsule,delayed 60 mg PO BID 10/26/20 08/31/21 History release levocetirizine 5 mg tablet 5 mg PO QAM 10/26/20 08/31/21 History lisinopril 5 mg tablet 5 mg PO QAM 10/26/20 08/31/21 History montelukast 10 mg tablet 10 mg PO HS 10/26/20 08/31/21 History pantoprazole 40 mg tablet,delayed 40 mg PO QPM 10/26/20 08/31/21 History release (Protonix) primidone 50 mg tablet 50 mg PO QAM 10/26/20 08/31/21 History propranolol 80 mg tablet 80 mg PO QAM 10/26/20 08/31/21 History tamsulosin 0.4 mg capsule 0.4 mg PO QAM 10/26/20 08/31/21 History topiramate 100 mg tablet 100 mg PO HS 10/26/20 08/31/21 History trazodone 100 mg tablet 100 mg PO HS 10/26/20 08/31/21 History cholecalciferol (vitamin D3) 50 100 mcg PO QAM 06/07/21 08/31/21 History mcg (2,000 unit) capsule (Vitamin D3) gabapentin 600 mg tablet 600 mg PO BID 06/08/21 08/31/21 History ferrous sulfate 325 mg (65 mg 325 mg PO QAM 08/18/21 08/31/21 History iron) tablet acetaminophen 500 mg tablet 1,000 mg PO Q8H 14 Days #84 tab 09/01/21 Rx (Tylenol Extra Strength) aspirin 81 mg tablet,delayed 81 mg PO BID 30 Days #60 tab 09/01/21 Rx release cefadroxil 500 mg capsule 500 mg PO BID #28 cap 09/01/21 Rx oxycodone 5 mg tablet 5 mg PO Q4H PRN #30 tab MDD 6 09/01/21 Rx polyethylene glycol 3350 17 gram 17 g PO DAILY PRN #5 ea 09/01/21 Rx oral powder packet (Miralax) Patient History Medical History Anxiety BPH (benign prostatic hyperplasia) Chronic back pain Depression GERD (gastroesophageal reflux disease) controlled stable per pt Hx of bladder cancer 2018 had chemo in bladder and no problem since Hyperlipidemia Hypertension controlled, stable per pt Nonobstructive atherosclerosis of coronary artery Per review of [facility] records, non-obstructive CAD by 2008 heart cath. Cardiac cath done 05/31/10 at [facility] for NSTEMI with chest pain following a back surgery done at [facility] (POD1). 2009 cath also showed nonobstructive CAD, ACS ruled out, medically managed for risk factor modification. Echo done 06/01/10 showed preserved EF 55-60%. NSTEMI (non-ST elevated myocardial infarction) 2009, POD1 after back surgery, transferred from [facility] to [facility] for cath. Cath nonobstructive. Osteoarthritis PONV (postoperative nausea and vomiting) Sleep apnea no device currently, waiting to receive device Surgical History History of arthroscopy of left knee History of cardiac cath x2--[place] [facility] [place] last 2009, "mild." No stents. @ [facility] History of incision and drainage left knee History of left knee surgery Left Total Knee: Explant of Hardware, Incision and Drainage, Implantation Articulated Antibiotic Spacer(Left) size 11 persona CR provisional 10 mm constrained polythirty 5 x 9 patella with antibiotic spacer 06/07/2021: LMA#5, atraumatic x 1. No issues per anesthesia postop progress note. History of open reduction and internal fixation (ORIF) procedure right arm History of rotator cuff surgery bilat, Lx 2 History of total left knee replacement 12/01/2020: SAB at L3-L4, 1 attempt + PNB. No issues per anesthesia postop progress note. Hx laparoscopic cholecystectomy Hx of arthroscopy of shoulder bilat Hx of bilateral cataract extraction Hx of colonoscopy Hx of cystoscopy Hx of esophagogastroduodenoscopy Hx of fusion of cervical spine Hx of gastric bypass states gastric sleeve 2013 - lost 60'pema pounds Hx of tonsillectomy Family History Father Colorectal cancer Mother Congestive heart disease Other No family history of adverse response to anesthesia Social History Smoking Status: Never smoker Second Hand Exposure: No; Do You Dip or Chew Tobacco: No; Tobacco Cessation Education Requested by Patient: No Hx Alcohol Use: Yes Alcohol type: beer and wine Hx Substance Use: No Preferred Language: Kiswahili Communication Ability: Effective Quenching Machine Operator Required: No Beliefs That Will Affect Care: None marital status: marital status details: lives with in [place] Current Living Situation: Spouse Current Living Situation Comment: Lives with , niece and niece's daughter current occupational status: retired 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; 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[email or web address] in [facility] How many Children do You have: 0 Other Information That Helps Us Care for You: No Feels Safe at Home: Yes Safety Concerns: Feels Safe At This Time Assistive Devices: Walker Assistive Devices Comment: brianna vargas Review of Systems Review of Systems: All systems reviewed & are unremarkable except as noted in HPI & below Physical Exam Physical Exam: General: WN/WD male sitting up in chair at window, NAD Eyes: anicteric, pupils equal and reactive ENT: trachea midline, no deviation Resp: CTAB, no w/c/r, on room air CV: RRR, no m/r/g, pulses palpable GI: +BS throughout, non-tender : no patel MSK: L knee wrapped/ice pack present. Hemovac with bloody drainage. pulses palpable, calves supple/nontender, strength equal dorsiflexion/plantar flexion Psych: Aox3, pleasant and cooperative Results & Data Results & Data ([facility]) Vital Signs (Past 12 Hours) Vital Signs Temp Pulse Resp BP Pulse Ox 09/01/21 07:38 36.4 C L 63 18 112/69 97 09/01/21 04:26 36.6 C 68 16 102/59 L 96 08/31/21 22:35 36.6 C 67 18 91/43 L 96 08/31/21 21:13 36.5 C 70 18 90/51 L 93 Laboratory Results 09/01/21 09/01/21 Range/Units 08:43 08:43 WBC 14.75 H (4.8-10.8) K/uL RBC 3.66 L (4.7-6.1) M/uL Hgb 10.9 L (14.0-18.0) g/dL Hct 34.0 L (42-52) % MCV 92.9 (80-100) fL MCH 29.8 (25-34) pg MCHC 32.1 (32-36) g/dL RDW Std Deviation 54.6 H (36.4-46.3) fL RDW Coeff of [place] 16.0 H (11.5-14.5) % Plt Count 205 (130-400) K/uL MPV 10.3 (7.4-10.4) fL Sodium 134 L (136-145) mmol/L Potassium 3.9 (3.5-5.1) mmol/L Chloride 103 (98-107) mmol/L Carbon Dioxide 23 (21-32) mmol/L Anion Gap 8 (3-11) BUN 19 (6-23) mg/dl Creatinine 0.95 (0.6-1.4) mg/dl Est Cr Clr Drug Dosing 101.9 ml/min Est GFR ( Amer) 97.0 ml/min Est GFR (Non-Af Amer) 83.7 ml/min BUN/Creatinine Ratio 20.0 (10-20) Glucose 131 H (70-99(Fasting)) mg/dl Calcium 8.5 (8.5-10.1) mg/dl Diagnostic Findings Knee X-Ray 08/31/21 14:46 LEFT KNEE 2 VIEWS History: Left total knee arthroplasty. Degenerative arthritis. Postop. FINDINGS: The patient is status post a left total knee arthroplasty. The hardw are is intact. No fracture or dislocation. Skin merly and surgical drains are in place. IMPRESSION: Left total knee arthroplasty. No evidence for hardware complication. ACT 112: Negative or not required by law. Electronically signed by: Nj Pardo M.D. 08/31/2021 3:09 PM PG Care Time/CCT Total # of Minutes Spent Total Time Spent with Patient: Total time spent is greater than 50% in coordination of care (as documented) at patient's floor/unit and/or counseling patient: Coding Level of Care Code 70194 Office/OBS Consult Lvl 3 Diagnoses Infection of total left knee replacement T84.54XA Encounter type: initial encounter Hypertension I10 Hyperlipidemia E78.5 GERD (gastroesophageal reflux disease) K21.9 Depression F32.9 Anxiety F41.9 BPH (benign prostatic hyperplasia) N40.0 Sleep apnea G47.30 Nonobstructive atherosclerosis of coronary artery I25.10 (1) Infection of total left knee replacement Encounter type: initial encounter Qualified Code(s): T84.54XA - Infection and inflammatory reaction due to internal left knee prosthesis, initial encounter
--- NOTE | 2021-09-01 08:15 | Orthopedic Progress Note ---
Date of Service September 01, 2021 Assessment & Plan (1) Infection of total left knee replacement: Plan: POD 1 Status post infection Left TKA with removal of antibx spacer and implant of revision Left TKA PT/OT protocols. WBAT. DVT prophylaxis - ASA po bid, SCD's Pain management as written. Labs pending DC planning - Home health services Admission and Anticipated Discharge Date Admission Date: August 31, 2021 Subjective POD 1 Pt sitting up eating breakfast. No complaints. Pain controlled. Denies SOB,CP,LH. Physical Exam Physical Exam: Dressings are C/D/I. Calves are soft, NT. NV intact. Toes mobile. Good DF/PF of the ankle. Hemovac drainage 150ml from previous shift. Results & Data ([facility]) Vital Signs (Past 12 Hours) Vital Signs Temp Pulse Resp BP Pulse Ox 09/01/21 07:38 36.4 C L 63 18 112/69 97 09/01/21 04:26 36.6 C 68 16 102/59 L 96 08/31/21 22:35 36.6 C 67 18 91/43 L 96 08/31/21 21:13 36.5 C 70 18 90/51 L 93 Laboratory Results Laboratory Results SARS-CoV-2, RNA, NAAT NEGATIVE (NEGATIVE) 08/31/21 Unknown Blood Type A Positive 08/31/21 07:15 Antibody Screen NEGATIVE 08/31/21 07:15 Crossmatch See Detail 08/31/21 07:15 Impressions Knee X-Ray 08/31/21 14:46 LEFT KNEE 2 VIEWS History: Left total knee arthroplasty. Degenerative arthritis. Postop. FINDINGS: The patient is status post a left total knee arthroplasty. The hardware is intact. No fracture or dislocation. Skin merly and surgical drains are in place. IMPRESSION: Left total knee arthroplasty. No evidence for hardware complication. ACT 112: Negative or not required by law. Electronically signed by: Nj Pardo M.D. 08/31/2021 3:09 PM (1) Infection of total left knee replacement Encounter type: initial encounter Qualified Code(s): T84.54XA - Infection and inflammatory reaction due to internal left knee prosthesis, initial encounter
[2021-09-01 08:58] LABS: Hemoglobin 10.9 g/dL (14.0-18.0); Mean Corpuscular Hemoglobin 29.8 pg (25-34); Mean Corpuscular Hgb Conc 32.1 g/dL (32-36); Mean Corpuscular Volume 92.9 fL (80-100); Mean Platelet Volume 10.3 fL (7.4-10.4); Platelet Count 205 K/uL (130-400); RDW Standard Deviation 54.6 fL (36.4-46.3); Red Blood Count 3.66 M/uL (4.7-6.1); White Blood Count 14.75 K/uL (4.8-10.8)
[2021-09-01] MEDS ORDERED: MULTIVITAMIN TAB PO SCH (09:00)
[2021-09-01] MEDS ORDERED: PRIMIDONE 50 MG TAB PO SCH (09:00)
[2021-09-01] MEDS ORDERED: allopurinoL 300 MG TAB PO SCH (09:00)
[2021-09-01] MEDS ORDERED: FERROUS SULFATE 325 MG TAB PO SCH (09:00)
[2021-09-01] MEDS ORDERED: TAMSULOSIN HCL 0.4 MG CAP PO SCH (09:00)
[2021-09-01] MEDS ORDERED: PROPRANOLOL HCL LA 80 MG CAPCR PO SCH (09:00)
[2021-09-01] MEDS ORDERED: lisinopril 5 MG TAB PO SCH (09:00)
[2021-09-01] MEDS ORDERED: CHOLECALCIFEROL 1,000 UNITS 25 MCG TAB PO SCH (09:00)
[2021-09-01] MEDS ORDERED: CETIRIZINE HCL 10 MG TABLET PO SCH (09:00)
[2021-09-01 09:35] LABS: Calcium 8.5 mg/dl (8.5-10.1); Creatinine Clr Calc Pharmacy 101.9 ml/min; Est GFR (Non-African American) 83.7 ml/min; Potassium 3.9 mmol/L (3.5-5.1)
--- NOTE | 2021-09-02 09:07 | Discharge Summary ---
Date of Service September 02, 2021 Admission HPI Per Admitting Provider Mr Layne is a 66 year old male who presents for history and physical prior to left knee removal of antibiotic spacer and revision left total knee replacement. he underwent a left TKA by Dr Villatoro on 12/01/20. he originally responded well, however in February/March he began having increased pain and swelling in his knee. He subsequently underwent Left knee irrigation and debridement with poly exchange on 04/12/21. He also completed 6 weeks of Cefazolin at that time. Patient stated that he had just finished his antibiotics and then approximately 2 weeks later began having increased discomfort and swelling in his left knee. He was again aspirated and positive for MSSA. at that time decision was made to undergo explant of hardware and placement of antibiotic spacer on 06/07/21. He has since that time completed course of Rifampin and Cefazolin, he has his knee aspirated 08/13/[address] Villatoro which showed a negative gram stain and no growth on culture. at this time, he would like to proceed with removal of antibiotic spacer with revision left total knee arthroplasty. Admission Exam Per Admitting Provider Physical Exam: HT: 6ft 2in WT: 108.86 Constitutional: WD/WN, vitals as above no acute distress Respiratory: normal respiratory effort, lungs clear to auscultation no respiratory distress, no labored breathing and does not use accessory muscles Cardiovascular: RRR, no murmur, no edema Gastrointestinal (Abdomen): normal bowel sounds, soft, nontender, no hepatosplenomegaly Musculoskeletal: Left Knee Exam Ambulates with a limp and knee immobilizer, overall neutral alignment, there is no warmth or ecchymosis noted, mild effusion, maximum tenderness medial joint line. Pain with Active range of motion, also passive painful ROM, Range of motion 0/5/90. No pain with active/passive ROM of ankle. Lower Extremity Strength normal. Lower Extremity Neuro-vascular is normal Principal Diagnosis s/p Infected Left TKA Discharge Data Allergies Allergy/AdvReac Type Severity Reaction Status Date / Time No Known Allergies Verified 08/31/21 07:05 Consultations 08/31/21 15:46 Consult Hospitalist Routine Procedures Performed Operation Date: 08/31/21 08:55 Actual Procedures p Left Knee Revision Antibiotic Spacer to Total Knee Arthroplasty with Legion Stems and Wedges(Left) - Anand Villatoro DO Ordered Studies 08/31/21 05:00 US - OR guided needle placemen Routine Hospital Course (1) Status post revision of total knee replacement: [facility], [id number] Orthopedic Progress Note Signed with Addenda Patient:ANJANA LAYNE Admit Date:08/31/21 MR#:[id number] Att Phy:Anand Villatoro D.O. Acct ID:[id number] Shala Phy:Marti AndersonshaneDO Grady Date:1955 Fam Phy: Age:66 Location:3E Sex:M Room/Bed:E316-1 cc: ~ *NOTICE TO RECEIVING REPUBLICAN/AGENCY This information is strictly Confidential and protected under [place] law. [place] law prohibits you from making any further disclosure of this information unless further disclosure is expressly permitted by the written consent of the person to whom it pertains or is authorized by law. A general authorization for the release of medical or other information is not sufficient for this purpose. Hospital accepts no responsibility if the information is made available to any other person, INCLUDING THE PATIENT. ADDENDUM 09/01/211119Addendum September 01, 2021 11:16 Pt progressing well with PT. He ambulated 150 feet. Pain controlled. Hospitalist service has seen him as well this AM and pt remaining stable. Plan for dc to home with home health services for PT; Dressing change/hemovac removal. DC to home today. Addendum Signed By: <Electronically signed by Brayan Henao PA-C> 09/01/211119 Addendum Cosigned By: <Electronically signed by Jasper Mendoza MD> 09/01/21 1307 Created: 09/01/2104/14/1120 Date of Service September 01, 2021 Assessment & Plan (1) Infection of total left knee replacement: Plan: POD 1 Status post infection Left TKA with removal of antibx spacer and implant of revision Left TKA PT/OT protocols. WBAT. DVT prophylaxis - ASA po bid, SCD's Pain management as written. Labs pending DC planning - Home health services Admission and Anticipated Discharge Date Admission Date: August 31, 2021 Subjective POD 1 Pt sitting up eating breakfast. No complaints. Pain controlled. Denies SOB,CP,LH. Physical Exam Physical Exam: Dressings are C/D/I. Calves are soft, NT. NV intact. Toes mobile. Good DF/PF of the ankle. Hemovac drainage 150ml from previous shift. Results & Data ([facility]) Vital Signs (Past 12 Hours) Vital Signs Temp Pulse Resp BP Pulse Ox 09/01/21 07:38 36.4 C L 63 18 112/69 97 09/01/21 04:26 36.6 C 68 16 102/59 L 96 08/31/21 22:35 36.6 C 67 18 91/43 L 96 08/31/21 21:13 36.5 C 70 18 90/51 L 93 Laboratory Results Laboratory Results SARS-CoV-2, RNA, NAAT NEGATIVE (NEGATIVE) 08/31/21 Unknown Blood Type A Positive 08/31/21 07:15 Antibody Screen NEGATIVE 08/31/21 07:15 Crossmatch See Detail 08/31/21 07:15 Impressions Knee X-Ray 08/31/21 14:46 LEFT KNEE 2 VIEWS History: Left total knee arthroplasty. Degenerative arthritis. Postop. FINDINGS: The patient is status post a left total knee arthroplasty. The hardware is intact. No fracture or dislocation. Skin merly and surgical drains are in place. IMPRESSION: Left total knee arthroplasty. No evidence for hardware complication. ACT 112: Negative or not required by law. Total Time Total Time Spent Total Time Spent (In Minutes): 10 Discharge Plan Discharge Items Patient Disposition: Home - Home Health Services Reason For Visit: Infection Reaction Due to Left Knee Prosthesis Discharge Diagnosis: S/P infection Left TKA; Revision Left TKA Activity: Per Instructions section Weightbearing: Left weightbearing Weightbearing Comment: as tolerated with immobilizer on while ambulating with walker Non-emergency contact: Surgeon Call non-emergency contact if: your pain is not controlled, your temperature is above 101.5, your wound has increased redness and your wound has increased drainage Follow-up/Referrals: Anand Villatoro DO [Surgeon] - 09/14/21 9:30 am (Follow up in 10-14 days from the day of surgery) Chalo Anderson DO [Primary Care Provider] - Diet: Regular Addtl Attending Provider Instructions: HOME HEALTH SERVICES TO REMOVE ERUM BANDAGE AND DISCONTINUE HEMOVAC DRAIN ON 09/02/21. CONTINUE WITH PREVENA WOUND VAC FOR 7 DAYS TOTAL FROM THE DAY OF SURGERY. ONCE PREVENA DRESSING REMOVED, KEEP WOUND COVERED WITH GAUZE UNTIL SEEN BACK IN THE OFFICE. ACTIVITY RECOMMENDATIONS: SELF CARE INSTRUCTIONS AFTER TOTAL KNEE REPLACEMENT A. You may need to continue a physical therapy program after discharge from the hospital. There are several options available to you. Your doctor will assist you in selecting the best one for you. 1. An out-patient facility 2 to 3 times a week for therapy or home therapy. 2. Continue working on all exercises taught to you in the hospital. Your goals should be to increase bending of your knee to 90 degrees and beyond and to fully straighten your knee. B. You may progress at your own pace from walking with a walker or crutches to a cane; then to no assistive devices. C. Make walking a part of your daily routine. Be up as much as comfortable with rest periods throughout the day. Rest with leg elevation is very important. Use the ice wrap frequently for the first 3-4 weeks. D. There are no restrictions on activities. You may ride in a car, shop, participate in res habilitation assistant and all social activities. E. Wear the long elastic stockings (YASMEEN hose) 20 hours a day for 2 weeks after surgery. They can be removed several times a day for laundering and for a bath. F. You may shower, no tub baths until cleared by your doctor. SPECIAL CARE INSTRUCTIONS: VERY IMPORTANT TO READ AND REVIEW A. There are a few signs you need to watch for after you are home. Call [facility] if you notice any of the followin. Increased severe knee pain. Some pain is expected especially when you exercise. 2. Increased swelling in your leg or knee; pain or swelling of the calf muscle in either lower leg. 3. Any fluid drainage from the incision. 4. Shortness of breath or chest pain. B. Please call [facility] at if you have any concerns or questions about your operation or recovery. The doctor or his nurse will return your call promptly. C. You must take antibiotics before dental work, bladder, bowel or other surgery. Your doctor will provide you with a permanent care to carry describing this precaution. IMPORTANT: * REMEMBER TO TAKE ASPIRIN, 81 MG, TWICE DAILY FOR 4 WEEKS UNLESS OTHERWISE DIRECTED. THIS IS YOUR BLOOD THINNER. * CALL IF INCREASED PAIN, REDNESS, DRAINAGE OR FEVER GREATER THAT 101. * WEAR YASMEEN HOSE 20 HOURS PER DAY FOR 2 WEEKS. * Prevena- This is a large suction dressing covering your incision. This will help pull any excess drainage from the wound and allow your incision to heal properly. You may shower with this if you can keep the unit outside of the shower. If any bleeding or leakage is noted please call your doctor's office. This will remain on your incision for 7 days and then should be removed. This can be done yourself or by the home nursing staff if applicable. The entire unit is disposable once removed. Once removed, keep incision clean and dry. If redness or drainage is noted, please call your surgeon. . FOLLOW UP VISIT: If appointment is not already scheduled: Please call [facility] to make a follow-up appointment for 2 weeks after your surgery at . Stand-Alone Forms: My [employer], Smoking Cessation Medications and DC Order Prescriptions: New aspirin 81 mg Tablet,Delayed Release (Dr/Ec) 81 mg PO BID 30 Days Qty: 60 RF: 0 acetaminophen [Tylenol Extra Strength] 500 mg Tablet 1,000 mg PO Q8H 14 Days Qty: 84 RF: 0 polyethylene glycol 3350 [Miralax] 17 gram powder in packet 17 g PO DAILY PRN (Reason: constipation) Qty: 5 RF: 0 cefadroxil 500 mg capsule 500 mg PO BID Qty: 28 RF: 1 oxycodone 5 mg Tablet 5 mg PO Q4H MDD 6 PRN (Reason: pain) Qty: 30 RF: 0 Continued primidone 50 mg Tablet 50 mg PO QAM RF: 0 propranolol 80 mg Tablet 80 mg PO QAM RF: 0 atorvastatin 20 mg Tablet 20 mg PO QPM RF: 0 tamsulosin 0.4 mg Capsule 0.4 mg PO QAM RF: 0 trazodone 100 mg Tablet 100 mg PO HS RF: 0 baclofen 10 mg Tablet 10 mg PO BID RF: 0 pantoprazole [Protonix] 40 mg Tablet,Delayed Release (Dr/Ec) 40 mg PO QPM RF: 0 buspirone 30 mg Tablet 30 mg PO BID RF: 0 bumetanide 0.5 mg Tablet 0.5 mg PO BID RF: 0 montelukast 10 mg Tablet 10 mg PO HS RF: 0 allopurinol 300 mg Tablet 300 mg PO QAM RF: 0 lisinopril 5 mg Tablet 5 mg PO QAM RF: 0 topiramate 100 mg Tablet 100 mg PO HS RF: 0 duloxetine 60 mg Capsule,Delayed Release(Dr/Ec) 60 mg PO BID RF: 0 levocetirizine 5 mg Tablet 5 mg PO QAM RF: 0 cholecalciferol (vitamin D3) [Vitamin D3] 50 mcg (2,000 unit) Capsule 100 mcg PO QAM RF: 0 gabapentin 600 mg tablet 600 mg PO BID RF: 0 ferrous sulfate 325 mg (65 mg iron) Tablet 325 mg PO QAM RF: 0 Discharge Orders: Discharge Order (Routine); Ordered 09/01/21 Ordered By: Brayan Workman/Other Patient Handouts: DVT Post Op Prevention Admission Data Admit Date/Time: 08/31/21 14:46 Attending Provider: Anand Villatoro Admit Provider: Anand Villatoro Primary Care Provider: Chalo Anderson Other Interventions: Discharge Summary Assessment (RN) Last Done: 09/01/21 13:07
== END 2021-09-01 14:24 | disposition home health service (06) | DRG 468 ==
LOC: ASU 06:39 → PACUINP 06:39 → OBSVTOIN 14:46 → 3E 17:52

== ENCOUNTER 2022-11-23 07:29 | Observation (INO) ==
--- NOTE | 2022-10-25 08:14 | History & Physical Report ---
Date of Service October 25, 2022 date of surgery: 11/23/22 Procedure: Right Total Knee Arthroplasty Surgeon: Anand Villatoro Assessment & Plan (1) Arthritis of right knee: Plan: Risks and benefits of the procedure discussed in detail today, patient would like to proceed with a talamantes and nephew patient matched right total knee replacement at [facility] as scheduled. will obtain medical clearance from Dr Anderson prior to surgery as well as obtain PATs at [facility]. Will place on ASA 81mg po bid x 1 month post op, f/u 2 weeks post op for routine post-operative care and x-ray, sooner if having any problems. will make arrangements for HHPT at the time of discharge. At this point in time, has failed conservative measures and would like to proceed with surgical intervention. The risks and benefits have been discussed including, but not limited to, risk of infection, nerve injury, stiffness, loss of motion, failure to improve, etc. Reasonable outcomes and options of treatment were discussed. An explanation of appropriate alternatives to the procedure that may be advantageous were discussed and their risks and benefits, as well as the risks and benefits of not proceeding with treatment. I offered to answer any additional inquiries concerning the treatment involved. All the patient's questions were answered. The patient is agreeable, understanding of the treatment plan and alternatives, and wishes to proceed with the treatment plan. History of Present Illness Chief Complaint: Right knee pain Primary Care Provider: Chalo Anderson Harry is a 67 year old male who complains of right knee pain, presents for pre-op evaluation prior to a right total knee replacement by Dr Villatoro at [facility]. He complains of pain, decreased range of motion and stiffness in the right knee. He states that the symptoms have been chronic and non-traumatic and have gradually worsened. Currently the patient states that the symptoms are moderate- severe. The pain is described as aching, sharp and throbbing. His symptoms are aggravated by ascending stairs, daily activities, first steps while awake walking. Prior NSAIDs include IBU, Celebrex and Aleve. He has been treated with previous cortisone injection in the past without much relief. Allergies Allergy/AdvReac Type Severity Reaction Status Date / Time No Known Allergies Verified 08/24/22 08:11 Home Medications Medication Instructions Recorded Confirmed Type allopurinol 300 mg tablet 300 mg PO QAM 10/26/20 08/24/22 History atorvastatin 20 mg tablet 20 mg PO QPM 10/26/20 08/24/22 History bumetanide 0.5 mg tablet 0.5 mg PO BID 10/26/20 08/24/22 History buspirone 30 mg tablet 30 mg PO BID 10/26/20 08/24/22 History duloxetine 60 mg capsule,delayed 60 mg PO BID 10/26/20 08/24/22 History release levocetirizine 5 mg tablet 5 mg PO QAM 10/26/20 08/24/22 History lisinopril 5 mg tablet 5 mg PO QAM 10/26/20 08/24/22 History montelukast 10 mg tablet 10 mg PO HS 10/26/20 08/24/22 History pantoprazole 40 mg tablet,delayed 40 mg PO QPM 10/26/20 08/24/22 History release (Protonix) primidone 50 mg tablet 50 mg PO QAM 10/26/20 08/24/22 History propranolol 80 mg tablet 80 mg PO QAM 10/26/20 08/24/22 History tamsulosin 0.4 mg capsule 0.4 mg PO QAM 10/26/20 08/24/22 History trazodone 100 mg tablet 150 mg PO HS 10/26/20 08/24/22 History cefadroxil 500 mg capsule 500 mg PO QAM knee infection s/p L 06/21/22 08/24/22 History TKA celecoxib 100 mg capsule (Celebrex) 100 mg PO BID 06/21/22 08/24/22 History cholecalciferol (vitamin D3) 125 125 mcg PO QAM 06/21/22 08/24/22 History mcg (5,000 unit) tablet (Vitamin D3) cyanocobalamin (vitamin B-12) 100 100 mcg PO QAM 06/21/22 08/24/22 History mcg tablet (Vitamin B-12) gabapentin 100 mg capsule 100 mg PO TID 06/21/22 08/24/22 History Past Med/Surg History Medical History Anxiety Arthritis of knee, left Benign essential tremor reason for primidone Borderline diabetes Dx prior to weight loss from gastric sleeve (2012), diet controlled BPH (benign prostatic hyperplasia) Chronic back pain Depression Effusion, left knee Encounter for pre-operative examination GERD (gastroesophageal reflux disease) controlled Hx of bladder cancer 2018 s/p chemo (in bladder), no issues since Hyperlipidemia Hypertension Infected prosthetic knee joint Nonobstructive atherosclerosis of coronary artery Per review of [facility] records, non-obstructive CAD by 2008 heart cath. Cardiac cath done 05/31/10 at [facility] for NSTEMI with chest pain following a back surgery done at [facility] (POD1). 2009 cath also showed nonobstructive CAD, ACS ruled out, medically managed for risk factor modification. NSTEMI (non-ST elevated myocardial infarction) 2009, POD1 after back surgery, transferred from [facility] to [facility] for cath. Cath nonobstructive. Osteoarthritis Sleep apnea Non-compliant Surgical History History of arthroscopy of left knee History of cardiac cath 2008, 2009 No stents History of knee replacement procedure of left knee History of left knee surgery Left Total Knee: Explant of Hardware, Incision and Drainage, Implantation Articulated Antibiotic Spacer Left knee revision, antibiotic spacer (08/31/21): SAB (x2 attempts) at L3-4 + PNB at [facility]. No issues noted per post-op anesthesia progress note. History of open reduction and internal fixation (ORIF) procedure right arm History of rotator cuff surgery R/L (Lx2) History of total left knee replacement 12/01/2020: SAB at L3-L4, 1 attempt + PNB. No issues per anesthesia postop progress note. Hx laparoscopic cholecystectomy Hx of arthroscopy of shoulder R/L Hx of bilateral cataract extraction Hx of colonoscopy Hx of cystoscopy Hx of esophagogastroduodenoscopy Hx of fusion of cervical spine Hx of gastric bypass states gastric sleeve 2012 - lost approximately 60 pounds Hx of tonsillectomy PONV (postoperative nausea and vomiting) Family History Father Colorectal cancer Mother Congestive heart disease Other No family history of adverse response to anesthesia Social History Smoking Status: Never smoker Second Hand Exposure: No; Hx Alcohol Use: Yes Alcohol type: beer and wine Hx Substance Use: No Preferred Language: Vietnamese Communication Ability: Effective 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 Beliefs That Will Affect Care: None marital status: marital status details: lives with in [place] Current Living Situation: Spouse current occupational status: retired 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; 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[employer] in [facility] How many Children do You have: 0 Feels Safe at Home: Yes Assistive Devices: Glasses Review of Systems Review of Systems: All systems reviewed & are unremarkable except as noted in HPI & below Constitutional: no fever, no chills and no sweats Respiratory: no cough and no dyspnea Cardiovascular: no chest pain, no dyspnea and no orthopnea Gastrointestinal: no abdominal pain, no nausea and no vomiting Musculoskeletal: as per Subjective / HPI Physical Exam Physical Exam: HT: 6ft 2in WT: 124.9kg Constitutional: WD/WN, vitals as above no acute distress Respiratory: normal respiratory effort, lungs clear to auscultation no respiratory distress, no labored breathing and does not use accessory muscles Cardiovascular: RRR, no murmur, no edema Gastrointestinal (Abdomen): normal bowel sounds, soft, nontender, no hepatosplenomegaly Musculoskeletal: Knee: + knee abnormal to inspection (RIGHT KNEE: ), + effusion (+1 effusion), + limited ROM of knee (ROM 0/3/110), + knee ROM with crepitation, + joint line tenderness (medial joint line) and + Adriano's sign positive; no deformity, no skin erythema, no ecchymosis, no valgus laxity, no varus laxity, anterior drawer test negative, Patria's sign negative and pivot shift test negative Results & Data Results & Data Diagnostic Findings Right Knee X-ray: Right knee series showing advanced degenerative changes to the right knee, narrowing of the medial compartment and patello-femoral joint with patellar spurring noted, findings showing joint space narrowing of the medial compartment and patello-femoral joint, osteophyte formation and subchondral sclerosis noted. overall varus alignment. no acute bony pathology noted.
--- NOTE | 2022-11-02 10:57 | PAT Medication Instructions ---
Medication Instructions Date of Service November 02, 2022 Home Medications allopurinol 300 mg tablet 300 mg PO QAM atorvastatin 20 mg tablet 20 mg PO QPM bumetanide 0.5 mg tablet 0.5 mg PO BID buspirone 30 mg tablet 30 mg PO BID duloxetine 60 mg capsule,delayed release 60 mg PO BID levocetirizine 5 mg tablet 5 mg PO QAM lisinopril 5 mg tablet 5 mg PO QAM montelukast 10 mg tablet 10 mg PO HS pantoprazole 40 mg tablet,delayed release (Protonix) 40 mg PO QPM primidone 50 mg tablet 50 mg PO QAM propranolol 80 mg tablet 80 mg PO QAM tamsulosin 0.4 mg capsule 0.4 mg PO QAM trazodone 100 mg tablet 150 mg PO HS cefadroxil 500 mg capsule 500 mg PO QAM celecoxib 100 mg capsule (Celebrex) 100 mg PO BID cholecalciferol (vitamin D3) 125 mcg (5,000 unit) tablet (Vitamin D3) 125 mcg PO QAM cyanocobalamin (vitamin B-12) 100 mcg tablet (Vitamin B-12) 100 mcg PO QAM gabapentin 100 mg capsule 100 mg PO TID Continue as directed cefadroxil 500 mg capsule 500 mg PO QAM ASK your surgeon for instructions celecoxib 100 mg capsule (Celebrex) 100 mg PO BID DO NOT take the morning of surgery bumetanide 0.5 mg tablet 0.5 mg PO BID levocetirizine 5 mg tablet 5 mg PO QAM lisinopril 5 mg tablet 5 mg PO QAM cholecalciferol (vitamin D3) 125 mcg (5,000 unit) tablet (Vitamin D3) 125 mcg PO QAM cyanocobalamin (vitamin B-12) 100 mcg tablet (Vitamin B-12) 100 mcg PO QAM gabapentin 100 mg capsule 100 mg PO TID Take morning of surgery With a small sip of water, OTHERWISE NOTHING TO EAT OR DRINK AFTER MIDNIGHT: allopurinol 300 mg tablet 300 mg PO QAM buspirone 30 mg tablet 30 mg PO BID duloxetine 60 mg capsule,delayed release 60 mg PO BID primidone 50 mg tablet 50 mg PO QAM propranolol 80 mg tablet 80 mg PO QAM tamsulosin 0.4 mg capsule 0.4 mg PO QAM Take evening before surgery atorvastatin 20 mg tablet 20 mg PO QPM bumetanide 0.5 mg tablet 0.5 mg PO BID buspirone 30 mg tablet 30 mg PO BID duloxetine 60 mg capsule,delayed release 60 mg PO BID montelukast 10 mg tablet 10 mg PO HS pantoprazole 40 mg tablet,delayed release (Protonix) 40 mg PO QPM trazodone 100 mg tablet 150 mg PO HS gabapentin 100 mg capsule 100 mg PO TID Other Notes If you have any questions please call us at [phone] or [phone] or [phone] or [phone]
--- NOTE | 2022-11-07 13:55 | Anesthesiology Consultation ---
Date of Service November 07, 2022 Assessment & Plan (1) Encounter for pre-operative examination: Chart Review Chart Review: Acceptable Risk for Surgery (pending PCP clearance 11/08/22) and Patient seen in Pre Admission Testing - Awaiting PCP clearance 11/08/22- please fax preop testing to PCP office - Check [facility] AM DOS -Pt is NOT an Outpatient Joint candidate Per PAT appt on 11/07/22, patient denies any recent travel or large group activities. Pt tested Covid positive 08/24/22 at [facility] (no symptoms at that time). Pt's surgery will be >90 days from Covid positive test. Pt recently hospitalized for pneumonia 10/20/22-10/25/22 (tested negative for Covid 10/20/22 at [facility]). Pt denies any known Covid exposures in the past 21 days. Pt is vaccinated for Covid. Preop Covid testing done 11/07/22 (per patient request and sxs in the past 10 days)=negative. Educated on importance of using Covid precautions one week prior to surgery Left knee revision, antibiotic spacer to TKA 08/31/21= Done under SAB at L3-4 with two attempts Teaching & Discussion Pre-Anesthesia Teaching/Discussion Notes: Instructed NPO after midnight before surgery,except medications with 15 cc of water. Medication instructions provided according to the PAT guidelines. History Surgery Operation Date: 11/23/22 11:30 Proposed Procedures p Right Total Knee Arthroplasty - Anand Villatoro DO Height/Weight Height: 6 ft 2 in Weight: 121.5 kg Allergies Allergy/AdvReac Type Severity Reaction Status Date / Time No Known Allergies Verified 11/02/22 08:04 Medications Home Medications Medication Instructions Recorded Confirmed Last Taken allopurinol 300 mg tablet 300 mg PO QAM 10/26/20 11/02/22 08/24/22 05:30 atorvastatin 20 mg tablet 20 mg PO QPM 10/26/20 11/02/22 08/23/22 18:30 bumetanide 0.5 mg tablet 0.5 mg PO BID 10/26/20 11/02/22 08/23/22 23:30 buspirone 30 mg tablet 30 mg PO BID 10/26/20 11/02/22 08/24/22 05:30 duloxetine 60 mg capsule,delayed 60 mg PO BID 0411/02/22 08/24/22 05:30 release levocetirizine 5 mg tablet 5 mg PO QAM 10/26/20 11/02/22 08/23/22 07:30 lisinopril 5 mg tablet 5 mg PO QAM 10/26/20 11/02/22 08/23/22 07:30 montelukast 10 mg tablet 10 mg PO HS 10/26/20 11/02/22 08/23/22 23:30 pantoprazole 40 mg tablet,delayed 40 mg PO QPM 10/26/20 11/02/22 08/23/22 18:30 release (Protonix) primidone 50 mg tablet 50 mg PO QAM 10/26/20 11/02/22 08/24/22 05:30 propranolol 80 mg tablet 80 mg PO QAM 10/26/20 11/02/22 08/24/22 05:30 tamsulosin 0.4 mg capsule 0.4 mg PO QAM 10/26/20 11/02/22 08/24/22 05:30 trazodone 100 mg tablet 150 mg PO 10/26/20 11/02/22 08/23/22 23:30 cefadroxil 500 mg capsule 500 mg PO QA knee infection s/p L 06/21/22 11/02/22 08/23/22 18:00 TKA celecoxib 100 mg capsule (Celebrex) 100 mg PO BID 06/21/22 11/02/22 08/15/22 cholecalciferol (vitamin D3) 125 125 mcg PO QAM 06/21/22 11/02/22 08/23/22 07:30 mcg (5,000 unit) tablet (Vitamin D3) cyanocobalamin (vitamin B-12) 100 100 mcg PO QAM 06/21/22 11/02/22 08/23/22 07:30 mcg tablet (Vitamin B-12) gabapentin 100 mg capsule 100 mg PO TID 06/21/22 11/02/22 08/24/22 05:30 Past Medical History Medical History Anxiety Benign essential tremor reason for primidone noted to bilateral hands Borderline diabetes Dx prior to weight loss from gastric sleeve (2012), diet controlled BPH (benign prostatic hyperplasia) Chronic back pain Depression GERD (gastroesophageal reflux disease) controlled History of COVID-19 08/24/22 [place]- ASYMPTOMATIC Hx of bladder cancer 2018 s/p chemo (in bladder), no issues since Hyperlipidemia Hypertension 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 Cardiac cath done 05/31/10 at [facility] for NSTEMI with chest pain following a back surgery done at [facility] (POD1). 2009 cath also showed nonobstructive CAD, ACS ruled out, medically managed for risk factor modification. NSTEMI (non-ST elevated myocardial infarction) 2009, POD1 after back surgery, transferred from [facility] to [facility] for cath. Cath nonobstructive. Osteoarthritis Pneumonia hospitalized w/ pneumonia 10/20/22-10/25/22 [facility] [place] symptoms resolved- back to baseline Sleep apnea Non-compliant Exercise / Class Metabolic Activity III < 4 Walking/Shop/Light housework (no chest pain or SOB with flat surface ambulation (activity limited by knee pain)) Past Family History Family History Father Colorectal cancer Mother Congestive heart disease Other No family history of adverse response to anesthesia Past Surgical History Surgical History History of arthroscopy of left knee History of cardiac cath 2008, 2009 No stents History of knee replacement procedure of left knee History of left knee surgery Left Total Knee: Explant of Hardware, Incision and Drainage, Implantation Articulated Antibiotic Spacer Left knee revision, antibiotic spacer (08/31/21): SAB (x2 attempts) at L3-4 + PNB at [facility]. No issues noted per post-op anesthesia progress note. History of open reduction and internal fixation (ORIF) procedure right arm History of rotator cuff surgery R/L (Lx2) History of total left knee replacement 12/01/2020: SAB at L3-L4, 1 attempt + PNB. No issues per anesthesia postop progress note. Hx laparoscopic cholecystectomy Hx of arthroscopy of shoulder R/L Hx of bilateral cataract extraction Hx of colonoscopy Hx of cystoscopy Hx of esophagogastroduodenoscopy Hx of fusion of cervical spine Hx of gastric bypass states gastric sleeve 2012 - lost approximately 60 pounds Hx of tonsillectomy PONV (postoperative nausea and vomiting) Past Anesthesia History No Hx of Anesthesia Complications (with exception to PONV) and No Family Hx of Anesthesia Complications History of PONV No Hx of Motion Sickness and History of PONV (one episode- improved with IV anti-nausea medication) Social History Smoking Status: Never smoker Do You Dip or Chew Tobacco: No Hx Alcohol Use: Yes Alcohol type: beer and wine alcohol intake frequency: a few times a month Hx Substance Use: No substance use type: does not use Review of Systems Patient denies chest pain, shortness of breath at rest, cough, wheezing, palpitations. No hx of seizures, stroke. No hx of blood clots or blood transfusions Physical Exam Vital Signs VITALS BP 121/74 P 66 TEMP 98.0 SP02 97% RESP 16 Constitutional no acute distress ENMT Mouth: no TMJ clicking Thyromental Distance: > or= 3.5 Finger Breadths (3.5) Mallampati Class: III Missing side teeth and molars Neck + limited neck extension Respiratory normal respiratory effort; no respiratory distress Auscultation: lungs clear to auscultation bilaterally; no wheezes Cardiovascular Rate/Rhythm: regular rate and regular rhythm Heart Sounds: no murmur Vessels: no carotid bruit Musculoskeletal Spine: + pain with cervical ROM Extremities: extremities normal to inspection Psychiatric Orientation: alert Lab Results Anesthesia Preop Results Results Anesthesia Widget: WBC 6.87 K/ul (4.8-10.8) 11/07/22 Hgb 14.2 g/dl (14.0-18.0) 11/07/22 Hct 42.8 % (42.0-52.0) 11/07/22 Plt 250 K/uL (130-400) 11/07/22 Na 135 mmol/L (136-145) L 11/07/22 K 4.5 mmol/L (3.5-5.1) 11/07/22 Cl 103 mmol/L (98-107) 11/07/22 CO2 27 mmol/L (21-32) 11/07/22 BUN 15 mg/dl (6-23) 11/07/22 Creat 0.85 mg/dl (0.6-1.4) 11/07/22 Glucose Level 114 mg/dl (70-99(Fasting)) H 11/07/22 PT 10.7 Seconds (9.0-12.0) 11/07/22 PTT 24.8 Seconds (21.0-31.0) 11/07/22 INR 1.0 (0.9-1.1) 11/07/22 HA1c 5.3 % (4.5-5.6) 11/07/22 Urine Color Yellow 11/07/22 Urine Appearance Clear (Clear) 11/07/22 Urine pH 6.5 (4.5-7.5) 11/07/22 Urine Specific [place] 1.012 (1.000-1.030) 11/07/22 Urine Protein Negative (Negative) 11/07/22 Urine Glucose (UA) Negative (Negative) 11/07/22 Urine Ketones Negative (Negative) 11/07/22 Urine Blood Negative (Negative) 11/07/22 Urine Nitrite Negative (Negative) 11/07/22 Urine Bilirubin Negative (Negative) 11/07/22 Urine Urobilinogen Negative (Negative) 11/07/22 Urine Leukocyte Esterase Negative (Negative) 11/07/22 Blood Type A Positive 11/07/22 Antibody Screen NEGATIVE 11/07/22 Testing Electrocardiogram Date: 11/07/22 Findings: + NSR @ (66bpm ) Normal EKG per cardio Chest X-Ray Date: 11/07/22 FINDINGS: Postoperative findings within the cervical and lumbar spines are incidentally noted. Lung volumes are normal. Lungs are clear. There is no pneumothorax or pleural effusion. Cardiac size is stable. Mediastinal contours are normal. There is no evidence for pulmonary edema. Nipple shadows project over the lower hemithoraces. IMPRESSION: No acute cardiopulmonary findings. No change in appearance of the chest. Echocardiogram Date: 04/11/21 EF 55-60%. No RWMA. Borderline cLVH. Mild MR/TR.
[~2022-11-23 07:29] MED LIST changes: -BUPIVACAINE 0.5 % 5 MG/1 ML PF 10ML VIAL ONE; -ROPIVACAINE 0.5% 5 MG/ML 30 ML VIAL ONE; -ROPIVACAINE 0.5% HCL/PF 150 MG, BUPIVACAINE 0.75% MPF 20 ML, EPINEPHrine 30MG/30ML (OR ... INFIL SCH; +ROPIVACAINE 0.5% HCL/PF 150 MG, BUPIVACAINE 0.75% MPF 20 ML, EPINEPHrine 30MG/30ML (OR ... INSTIL SCH; -oxyCODONE HCL 10 MG TABCR (OxyCONTIN) PO SCH
[2022-11-23] MEDS ORDERED: BUPIVACAINE 0.5 % 5 MG/1 ML PF 10ML VIAL ONE (07:35)
[2022-11-23] MEDS ORDERED: BUPIVACAINE 0.25% PF 30 ML VIAL ONE (07:35)
[2022-11-23] MEDS ORDERED: LIDOCAINE 2% 2 ML VIAL/AMP(20MG/ML) INFIL ONE (08:42)
[2022-11-23] MEDS ORDERED: PROPOFOL IV EMULSION 10 MG/ML 20 ML VIAL IV ONE ×3 (08:42→11:17)
[2022-11-23] MEDS ORDERED: fentaNYL citrate PF 100 MCG/2 ML VIAL ONE (08:43)
[2022-11-23] MEDS ORDERED: MIDAZOLAM HCL 1 MG/ML 2ML VIAL ONE (08:43)
[2022-11-23] MEDS ORDERED: fentaNYL citrate PF 100 MCG/2 ML VIAL IV PRN (09:37)
[2022-11-23] MEDS ORDERED: ATROPINE SULFATE 0.1 MG/ML 10ML SYR IV PRN (09:37)
[2022-11-23] MEDS ORDERED: ePHEDrine sulfate 50 MG/ML AMP IV PRN (09:37)
[2022-11-23] MEDS ORDERED: ONDANSETRON INJ 2 MG/ML 2 ML VIAL IV PRN ×2 (09:37→14:09)
[2022-11-23] MEDS ORDERED: ORTHO JOINT ANESTHETIC ONE (10:15)
--- NOTE | 2022-11-23 10:37 | History & Physical Bridge Note ---
Date of Service November 23, 2022 History & Physical Bridge Note I have examined the patient, reviewed the History & Physical and in the interval since the performance of the History & Physical I have noted the following changes of clinical significance: no changes noted
--- NOTE | 2022-11-23 12:01 | Operative Report ---
Post Operative Report Pre & Post Diagnosis Operation Date: 11/23/22 10:20 Pre-Op Diagnosis: Osteoarthritis Right Knee Post-Op Diagnosis: Osteoarthritis Right Knee I identified the patient and participated in the time-out.: Yes Procedure Operation Date: 11/23/22 10:20 7 Poly 9 patella 35 oval Actual Procedures p Right Total Knee Arthroplasty(Right) utilizing [employer] journey 2 patient matched total knee arthroplasty size femur 7 tibia- Anand Villatoro DO Surgeon Anand Villatoro DO Wheel Grinder Brayan BILLINGSLEY Estimated Blood Loss 5 Findings Consistent with Post-Op Diagnosis Patient presents with severe end-stage tricompartmental DJD 10 degree flexion contracture varus alignment subchondral sclerosis marginal osteophytes eburnated [id number] with a moderate to large effusion Specimens Bone and cartilage Drains Medium bore Hemovac Anesthesia Type MAC Spinal Regional Complications none Disposition Accompanied Patient To Recovery: No Disposition: Recovery Room Indications Patient presents with severe end-stage DJD right knee failed attempted conservative management clinic physical therapy anti-inflammatories relative rest activity modification corticosteroid injection viscosupplementation above intraoperative findings were noted Description of Procedure After proper prepping and draping of the Right lower extremity anterior midline incision was made over the region of the extensor extensor mechanism after meticulous hemostasis was obtained and maintained in subcutaneous tissues a medial parapatellar incision was made The patella was subluxed lateralward the medial lateral gutter were cleaned from any hypertrophic synovitis and scar tissue of the distal femoral block was placed and the distal femoral osteotomy cut was made subsequently the chamfers anterior and posterior osteotomy cuts were made utilizing the 4-in-1 block the tibia was subsequently subluxed anteriorward medial and ateral meniscal remnants were excised in their entirety remnants of the anterior and posterior cruciate ligaments were excised in their entirety excellent exposure of the proximal tibia was obtained the tibial osteotomy guide was placed on the proximal tibial osteotomy cut was made once again the knee was irrigated with copious amounts of sterile saline solution the patella was subsequently everted lateralward thickened scar tissue around the patella was removed the patella was subsequently cut utilizing a freehand technique and was drilled prepared for final preparation and placement of patella socially flexion-extension gaps were checked and the equal and symmetric trials were placed to the appropriate femoral and tibial trials with poly-spacer being placed for equal flexion and extension gaps and full range of motion including extension to 0 and flexion to 140 the trial components after having been taken to recovery range of motion was subsequently removed meticulous hemostasis was obtained and maintained subsequently a knee block injection of joint cocktail including ropivacaine 0.5% 150 mg. Bupivacaine 0.5% epinephrine 1-200,030 mL's toradol 30 mg dexamethasone 4 mg ketamine 10 mg clonidine 100 micrograms normal saline solution 30 mg was infiltrated into the soft tissues of the posterior knee medial lateral gutters and periosteal synovium special attention was paid to protect neurovascular structures at all times subsequently trial components having been removed the knee was irrigated with sterile saline solution. debris was removed the proximal tibia was subsequently prepared and was made ready for the placement of the tibial component tibial component was also cemented and tamped into position the femoral component was subsequently placed and cemented in the position the patellar component was subsequently cemented in position because hemostasis once again obtained and maintained wound having been thoroughly irrigated with debridement and debridement lavage was performed as well as a medial parapatellar incision closed with #1 Vicryl in interrupted fashion subcutaneous was closed with #2 Vicryl skin was closed with skin clips. PA-C was necessary for prepping and drapping as well as wound closure of deep fascia Sub cutaneous tissue and skin and was necessary for the case. A sterile compressive dressing was placed patient was taken to recovery in stable condition of report dictated by Irving I attest to the content of the Intraoperative Record and any orders documented therein. Any exceptions are noted below.Due to the complex nature of the procedure, the entire surgery was performed with the operational assistance of Brayan BILLINGSLEY. The election assistant, under direct supervision, was involved in the actual performance of all aspects of the surgical procedure including hemostasis, tissue retraction and incision, instrument management, patient positioning, and wound closure. I attest to the content of the Intraoperative Record and any orders documented therein. Any exceptions are noted below.
[2022-11-23] MEDS ORDERED: bisacodyL 10 MG SUPP PR PRN (14:09)
[2022-11-23] MEDS ORDERED: NALOXONE HCL 0.4 MG/1 ML VIAL/CARP IV PRN (14:09)
[2022-11-23] MEDS ORDERED: MAGNESIUM HYDROXIDE SUSP 30 ML UDC PO PRN (14:09)
[2022-11-23] MEDS ORDERED: HYDROmorphone INJ 0.5 MG/0.5 ML SYR IV PRN (14:09)
[2022-11-23] MEDS ORDERED: diphenhydrAMINE 50 MG/ML VIAL IV PRN (14:09)
--- NOTE | 2022-11-23 14:19 | XRay Report ---
RIGHT KNEE 2 VIEWS History: Right total knee arthroplasty. Degenerative arthritis. Postop. FINDINGS: The patient is status post a right total knee arthroplasty. The hardware is intact. No frac ture or dislocation. Surgical drains are in place. IMPRESSION: Right total knee arthroplasty. No evidence for hardware complication. ACT 112: Negative or not required by law. Electronically signed by: Nj Pardo M.D. 11/23/2022 2:18 PM
--- NOTE | 2022-11-23 14:41 | Anesthesiology Progress Note ---
Date of Service November 23, 2022 Anesthesia Post Procedure Vital Signs Vital Signs: Temp Pulse Pulse Resp BP Pulse Ox O2 Del Method 11/23/22 14:14 36.5 C 56 L 18 126/82 99 Room Air 11/23/22 13:55 62 17 133/77 97 Room Air 11/23/22 13:45 64 16 125/85 96 Room Air 11/23/22 13:35 58 L 13 128/76 96 Room Air 11/23/22 13:25 36.3 C L 59 L 15 121/78 96 Room Air 11/23/22 13:15 61 12 127/83 97 Room Air 11/23/22 13:05 58 L 12 128/83 100 Room Air 11/23/22 12:55 57 L 12 122/75 100 Nasal Cannula 11/23/22 12:49 36.0 C L 60 10 L 122/73 99 Nasal Cannula 11/23/22 08:25 Room Air 11/23/22 08:25 36.5 C 58 L 18 137/83 98 Room Air O2 Flow Rate 11/23/22 14:14 11/23/22 13:55 11/23/22 13:45 11/23/22 13:35 11/23/22 13:25 11/23/22 13:15 11/23/22 13:05 11/23/22 12:55 3 11/23/22 12:49 3 11/23/22 08:25 11/23/22 08:25 Transfer of Care Handoff Completed per policy Notes Mental Status: alert / awake / arousable and participated in evaluation Patient Amnestic to Procedure: Yes Nausea / Vomiting: adequately controlled Pain: adequately controlled Airway Patency, RR, SpO2: stable & adequate BP & HR: stable & adequate Hydration State: stable & adequate Neuraxial Anesthesia: was administered and sensory block is resolving Anesthetic Complications: no major complications apparent and Pt Satisfied with anesthetic care
--- NOTE | 2022-11-23 15:02 | Hospitalist Consultation ---
Date of Consultation November 23, 2022 Assessment & Plan (1) Infection of total left knee replacement: Occurred in the past. Now treated and resolved (2) Arthritis of right knee: Status post right total knee arthroplasty earlier today. Orthopedic management. Serial labs. Pain control measures (3) Hypertension: Treated with lisinopril and propranolol (4) Hyperlipidemia: Treated with atorvastatin (5) GERD (gastroesophageal reflux disease): Treated with Protonix (6) Depression: Treated with buspirone (7) BPH (benign prostatic hyperplasia): Treated with Flomax Plan Thank you for the consultation. We will follow daily and managed medical problems. Eventual discharge decision per primary service History of Present Illness Reason for Consultation: Medical management postoperatively Attending Physician: Anand Villatoro DO History of Present Illness 67-year-old white male who underwent elective right total knee arthroplasty earlier today. He has a history of previous left total knee arthroplasty with postoperative infection and subsequent hardware removal and insertion of a spacer temporarily before the knee could be replaced again. He has degenerative arthritis of the knees prompting current surgery. He has a history of essential hypertension, hyperlipidemia, GERD, anxiety with depression, benign prostatic hypertrophy, and gout. He is seen postoperatively and is alert and oriented without chest pain or shortness of breath and is hemodynamically stable Allergies Allergy/AdvReac Type Severity Reaction Status Date / Time No Known Allergies Verified 11/23/22 08:18 Home Medications Medication Instructions Recorded Confirmed Type allopurinol 300 mg tablet 300 mg PO QAM 10/26/20 11/23/22 History atorvastatin 20 mg tablet 20 mg PO QPM 10/26/20 11/23/22 History bumetanide 0.5 mg tablet 0.5 mg PO BID 10/26/20 11/23/22 History buspirone 30 mg tablet 30 mg PO BID 10/26/20 11/23/22 History duloxetine 60 mg capsule,delayed 60 mg PO BID 10/26/20 11/23/22 History release levocetirizine 5 mg tablet 5 mg PO QAM 10/26/20 11/23/22 History lisinopril 5 mg tablet 5 mg PO QAM 10/26/20 11/23/22 History montelukast 10 mg tablet 10 mg PO HS 10/26/20 11/23/22 History pantoprazole 40 mg tablet,delayed 40 mg PO QPM 10/26/20 11/23/22 History release (Protonix) propranolol 80 mg tablet 80 mg PO QAM 10/26/20 11/23/22 History tamsulosin 0.4 mg capsule 0.4 mg PO QAM 10/26/20 11/23/22 History trazodone 100 mg tablet 150 mg PO HS 10/26/20 11/23/22 History cefadroxil 500 mg capsule 500 mg PO QAM knee infection s/p L 06/21/22 11/23/22 History TKA celecoxib 100 mg capsule (Celebrex) 100 mg PO BID 06/21/22 11/23/22 History cholecalciferol (vitamin D3) 125 125 mcg PO QAM 06/21/22 11/23/22 History mcg (5,000 unit) tablet (Vitamin D3) cyanocobalamin (vitamin B-12) 100 100 mcg PO QAM 06/21/22 11/23/22 History mcg tablet (Vitamin B-12) gabapentin 100 mg capsule 100 mg PO TID 06/21/22 11/23/22 History Patient History Medical History Anxiety Benign essential tremor reason for primidone noted to bilateral hands Borderline diabetes Dx prior to weight loss from gastric sleeve (2012), diet controlled BPH (benign prostatic hyperplasia) Chronic back pain Depression GERD (gastroesophageal reflux disease) controlled History of COVID-19 08/24/22 CA- ASYMPTOMATIC Hx of bladder cancer 2018 s/p chemo (in bladder), no issues since Hyperlipidemia Hypertension Infected prosthetic knee joint on cefadroxil daily Nonobstructive atherosclerosis of coronary artery Per review of [facility] records, non-obstructive CAD by 2008 heart cath. Cardiac cath done 05/31/10 at [facility] for NSTEMI with chest pain following a back surgery done at [facility] (POD1). 2009 cath also showed nonobstructive CAD, ACS ruled out, medically managed for risk factor modification. NSTEMI (non-ST elevated myocardial infarction) 2009, POD1 after back surgery, transferred from [facility] to [facility] for cath. Cath nonobstructive. Osteoarthritis Pneumonia hospitalized w/ pneumonia 10/20/22-10/25/22 [facility] [place] symptoms resolved- back to baseline Sleep apnea Non-compliant Surgical History History of arthroscopy of left knee History of cardiac cath 2008, 2009 No stents History of knee replacement procedure of left knee History of left knee surgery Left Total Knee: Explant of Hardware, Incision and Drainage, Implantation Articulated Antibiotic Spacer Left knee revision, antibiotic spacer (08/31/21): SAB (x2 attempts) at L3-4 + PNB at [facility]. No issues noted per post-op anesthesia progress note. History of open reduction and internal fixation (ORIF) procedure right arm History of rotator cuff surgery R/L (Lx2) History of total left knee replacement 12/01/2020: SAB at L3-L4, 1 attempt + PNB. No issues per anesthesia postop progress note. Hx laparoscopic cholecystectomy Hx of arthroscopy of shoulder R/L Hx of bilateral cataract extraction Hx of colonoscopy Hx of cystoscopy Hx of esophagogastroduodenoscopy Hx of fusion of cervical spine Hx of gastric bypass states gastric sleeve 2012 - lost approximately 60 pounds Hx of tonsillectomy PONV (postoperative nausea and vomiting) Family History Father Colorectal cancer Mother Congestive heart disease Other No family history of adverse response to anesthesia Social History Smoking Status: Never smoker Second Hand Exposure: No; Do You Dip or Chew Tobacco: No; Tobacco Cessation Education Requested by Patient: No Hx Alcohol Use: Yes Alcohol type: beer and wine Hx Substance Use: No Preferred Language: Mongolian Communication Ability: Effective Dialysis Rn Required: No Beliefs That Will Affect Care: None marital status: marital status details: lives with in [place] Current Living Situation: Spouse current occupational status: retired 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; 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[employer] in [facility] How many Children do You have: 0 Other Information That Helps Us Care for You: No Feels Safe at Home: Yes Safety Concerns: Feels Safe At This Time Assistive Devices: Cane, Glasses and Walker Review of Systems Review of Systems: Constitutional-no fever or chills ENT-no blurred vision, no double vision, no epistaxis, no sore throat Respiratory-no cough, no wheezing, no shortness of breath Cardiac-no palpitations, no chest pain, no syncope GI-no nausea, vomiting, diarrhea, melena, hematochezia -no urinary retention, no urinary incontinence, no dysuria, no hematuria Musculoskeletal-right knee discomfort postoperatively as expected Skin-no bruising, no rashes, no pruritus Neuro-no isolated weakness, no paresthesia, no weakness Psych-no depression, no anxiety Physical Exam Physical Exam: General-alert and oriented x3, no fevers, no chills HEENT-head atraumatic and normocephalic, pupils equal and reactive to light, extraocular muscles intact Neck-no lymphadenopathy or thyromegaly, trachea midline Chest-clear to auscultation percussion. No rales wheezing or rhonchi Cardiac-regular rate and rhythm, normal S1 and S2 Abdomen-normal bowel sounds, nontender, no hepatosplenomegaly Extremities-right knee heavily bandaged postoperatively as expected. No peripheral edema Neuro-cranial nerves II through XII intact, motor and sensory function within normal limits, strength symmetrical , no focal deficits Psych-normal affect, normal mood Results & Data Results & Data Vital Signs (Past 12 Hours) Vital Signs Temp Pulse Pulse Resp BP Pulse Ox O2 Del Method 11/23/22 14:14 36.5 C 56 L 18 126/82 99 Room Air 11/23/22 13:55 62 17 133/77 97 Room Air 11/23/22 13:45 64 16 125/85 96 Room Air 11/23/22 13:35 58 L 13 128/76 96 Room Air 11/23/22 13:25 36.3 C L 59 L 15 121/78 96 Room Air 11/23/22 13:15 61 12 127/83 97 Room Air 11/23/22 13:05 58 L 12 128/83 100 Room Air 11/23/22 12:55 57 L 12 122/75 100 Nasal Cannula 11/23/22 12:49 36.0 C L 60 10 L 122/73 99 Nasal Cannula 11/23/22 08:25 Room Air 11/23/22 08:25 36.5 C 58 L 18 137/83 98 Room Air O2 Flow Rate 11/23/22 14:14 11/23/22 13:55 11/23/22 13:45 11/23/22 13:35 11/23/22 13:25 11/23/22 13:15 11/23/22 13:05 11/23/22 12:55 3 11/23/22 12:49 3 11/23/22 08:25 11/23/22 08:25 PG Care Time/CCT Total # of Minutes Spent Total Time Spent with Patient: Total time spent is greater than 50% in coordination of care (as documented) at patient's floor/unit and/or counseling patient: Coding Level of Care Code 12777 IN/OBS CONSULT LVL 4,60M Diagnoses Infection of total left knee replacement T84.54XA Encounter type: initial encounter Arthritis of right knee M17.11 Hypertension I10 Hyperlipidemia E78.5 GERD (gastroesophageal reflux disease) K21.9 Depression F32.9 BPH (benign prostatic hyperplasia) N40.0 (1) Infection of total left knee replacement Encounter type: initial encounter Qualified Code(s): T84.54XA - Infection and inflammatory reaction due to internal left knee prosthesis, initial encounter
[2022-11-23] MEDS: SODIUM CHLORIDE 0.9% 1000ML 1,000 ML IV SCH (16:16)
[2022-11-23] MEDS: BUMETANIDE 1 MG TAB PO SCH (16:17)
[2022-11-23] MEDS: GABAPENTIN 100 MG CAP PO SCH ×2 (16:18→21:46)
[2022-11-23] MEDS: ACETAMINOPHEN 500 MG TAB PO SCH ×2 (16:18→21:46)
[2022-11-23] MEDS: ceFAZolin 2000MG 2,000 MG/15 ML SYR IV SCH (19:12)
[2022-11-23] MEDS ORDERED: ATORVASTATIN 20 MG TAB PO SCH (21:00)
[2022-11-23] MEDS ORDERED: traZODone HCL 50 MG TAB PO SCH (21:00)
[2022-11-23] MEDS ORDERED: MONTELUKAST SODIUM 10 MG TABLET PO SCH (21:00)
[2022-11-23] MEDS ORDERED: PANTOprazole 40 MG TAB PO SCH (21:00)
[2022-11-23] MEDS ORDERED: SENNA 8.6 MG TAB PO SCH (21:00)
[2022-11-23] MEDS: oxyCODONE HCL IR 5 MG TAB (IMMEDIATE RELEASE) PO PRN (21:41)
[2022-11-23] MEDS: busPIRone 15 MG TAB PO SCH (21:44)
[2022-11-23] MEDS: CeleBREX 200 MG CAP PO SCH (21:45)
[2022-11-23] MEDS: ASPIRIN 81 MG ECTAB PO SCH (21:45)
[2022-11-23] MEDS: DOCUSATE SODIUM 100 MG CAP PO SCH (21:45)
[2022-11-23] MEDS: DULoxetine HCL 60 MG CAP PO SCH (21:46)
[2022-11-24] MEDS: oxyCODONE HCL IR 5 MG TAB (IMMEDIATE RELEASE) PO PRN (01:36)
[2022-11-24] MEDS: ceFAZolin 2000MG 2,000 MG/15 ML SYR IV SCH ×2 (03:28→11:04)
[2022-11-24] MEDS: SODIUM CHLORIDE 0.9% 1000ML 1,000 ML IV SCH (03:56)
[2022-11-24] MEDS: ACETAMINOPHEN 500 MG TAB PO SCH ×2 (05:33→13:11)
--- NOTE | 2022-11-24 06:59 | Orthopedic Progress Note ---
Date of Service November 24, 2022 Assessment & Plan (1) History of total right knee replacement: Plan: POD #1 s/p Right TKA pt/ot dvt proph with YASMEEN/SCD/ASA plan for d/c home with HHPT after PT today Admission and Anticipated Discharge Date Admission Date: November 23, 2022 Subjective POD #1 s/p Right TKA Review of Systems Constitutional: no fever, no chills and no sweats Respiratory: no cough and no dyspnea Cardiovascular: no chest pain and no dyspnea Gastrointestinal: no abdominal pain, no nausea and no vomiting Physical Exam Physical Exam: Vital Signs Temp 36.4 C L 11/24/22 06:40 Pulse 70 11/24/22 06:40 Resp 20 11/24/22 06:40 BP 99/58 L 11/24/22 06:40 Pulse Ox 98 11/24/22 06:40 O2 Del Method Room Air 11/24/22 06:40 O2 Flow Rate 3 11/23/22 12:55 Intake & Output 11/23/22 11/23/22 11/24/22 06:59 18:59 06:59 Intake Total 1122.5 / 2779.167 1656.667 / 2779.16 7 Output Total 5 / 880 875 / 880 Balance 1117.5 / 1899.167 781.667 / 1899.167 Weight 123.9 kg Intake: IV 272.5 / 1179.167 906.667 / 1179.167 Lactated Ringe r's 1,000 ml @ 15 0 / 0 mls/hr IV .Q24 H V[facility]CTOR Rx#: [id number] Sodium Chlorid e 0.9% 1000ML 1, 906.667 / 906.667 000 ml @ 100 m ls/hr IV .Q10H VÍCTOR Rx#:[id number] Tranexamic Aci d / 0.7% NaCl 1, 200 / 200 000 mg In 100 ml @ 600 mls/hr IV TODAY@0600 VÍCTOR Rx#:[id number] ceFAZolin 3000 MG 72.5 ml @ 130 72.5 / 72.5 mls/hr IV PREO P VÍCTOR Rx#: [id number] IV Perioperative 850 / 850 Oral 750 / 750 Output: Urine 400 / 400 Estimated Blood Loss 5 / 5 Drain Output 475 / 475 Right Knee Hem ovac 475 / 475 Other: # Unmeasured Voi ds 1 Weight Measureme nt Method Standing Scale Musculoskeletal: Right Leg: NVDI, calf SNT, negative jesse sign. DP palpable, able to wiggle toes/ankle movement without difficulty. dressing clean dry and intact. Results & Data Vital Signs (Past 12 Hours) Vital Signs Temp Pulse Pulse Resp BP Pulse Ox O2 Del Method 11/24/22 06:40 36.4 C L 70 20 99/58 L 98 Room Air 11/24/22 03:40 36.6 C 60 18 128/77 96 Room Air 11/23/22 23:45 36.4 C L 62 16 103/64 94 Room Air 11/23/22 19:10 36.4 C L 61 16 117/62 95 Room Air Laboratory Results Laboratory Results POC Glucose 73 mg/dl (70-99) 11/23/22 09:00 SARS-CoV-2, RNA, NAAT NEGATIVE (NEGATIVE) 11/23/22 Unknown Impressions Knee X-Ray 11/23/22 12:58 RIGHT KNEE 2 VIEWS History: Right total knee arthroplasty. Degenerative arthritis. Postop. FINDINGS: The patient is status post a right total knee arthroplasty. The hardware is intact. No fracture or dislocation. Surgical drains are in place. IMPRESSION: Right total knee arthroplasty. No evidence for hardware complication. ACT 112: Negative or not required by law. Electronically signed by: Nj Pardo M.D. 11/23/2022 2:18 PM
[2022-11-24 07:12] LABS: Hematocrit (blood only) 36.4 % (42.0-52.0); Hemoglobin 12.4 g/dl (14.0-18.0); Mean Corpuscular Hemoglobin 33.1 pg (25.0-34.0); Mean Corpuscular Hgb Conc 34.1 g/dL (32.0-36.0); Mean Corpuscular Volume 97.1 fL (80.0-100.0); Mean Platelet Volume 11.6 fL (9.4-12.4); Platelet Count 162 K/uL (130-400); RDW Coefficient of Variation 13.6 % (11.5-14.5); RDW Standard Deviation 48.8 fL (36.4-46.3); Red Blood Count 3.75 M/uL (4.70-6.10); White Blood Count 17.99 K/ul (4.8-10.8)
[2022-11-24 07:24] LABS: Calcium 8.1 mg/dl (8.6-10.3); Creatinine Clr Calc Pharmacy 105.9 ml/min; Est GFR (African American) 95.1 ml/min; Potassium 4.3 mmol/L (3.5-5.1)
[2022-11-24] MEDS: DOCUSATE SODIUM 100 MG CAP PO SCH (07:57)
[2022-11-24] MEDS: DULoxetine HCL 60 MG CAP PO SCH (07:57)
[2022-11-24] MEDS: busPIRone 15 MG TAB PO SCH (07:57)
[2022-11-24] MEDS: GABAPENTIN 100 MG CAP PO SCH ×2 (07:57→13:11)
[2022-11-24] MEDS: BUMETANIDE 1 MG TAB PO SCH (07:58)
[2022-11-24] MEDS: ASPIRIN 81 MG ECTAB PO SCH (07:58)
[2022-11-24] MEDS: CeleBREX 200 MG CAP PO SCH (07:58)
[2022-11-24] MEDS ORDERED: TAMSULOSIN HCL 0.4 MG CAP PO SCH (09:00)
[2022-11-24] MEDS ORDERED: allopurinoL 300 MG TAB PO SCH (09:00)
[2022-11-24] MEDS ORDERED: CYANOCOBALAMIN (B-12) 100 MCG TABLET PO SCH (09:00)
[2022-11-24] MEDS ORDERED: PROPRANOLOL HCL LA 80 MG CAPCR PO SCH (09:00)
[2022-11-24] MEDS ORDERED: MULTIVITAMIN TAB PO SCH (09:00)
[2022-11-24] MEDS ORDERED: CHOLECALCIFEROL 5,000 UNITS 125 MCG TAB PO SCH (09:00)
[2022-11-24] MEDS ORDERED: CETIRIZINE HCL 10 MG TABLET PO SCH (09:00)
[2022-11-24] MEDS ORDERED: lisinopril 5 MG TAB PO SCH (09:00)
--- NOTE | 2022-11-24 12:28 | Hospitalist Progress Note ---
Date of Service November 24, 2022 Assessment & Plan (1) Infection of total left knee replacement: Plan: Occurred in the past. Now treated and resolved (2) Arthritis of right knee: Plan: Status post right total knee arthroplasty, postoperative day #1. Orthopedic management. Serial labs. Pain control measures (3) Hypertension: Plan: Treated with lisinopril and propranolol. Stable (4) Hyperlipidemia: Plan: Treated with atorvastatin (5) GERD (gastroesophageal reflux disease): Plan: Treated with Protonix (6) Depression: Plan: Treated with buspirone (7) BPH (benign prostatic hyperplasia): Plan: Treated with Flomax Plan Primary service will be discharging the patient home today, November 24. He is medically stable Admission and Anticipated Discharge Date Admission Date: November 23, 2022 Subjective Alert and oriented. No distress. Hemoglobin 12. Postoperative day 1. He has been seen by orthopedic surgery and will be discharged home today, November 24 Review of Systems Review of Systems: Constitutional-no fever or chills ENT-no blurred vision, no double vision, no epistaxis, no sore throat Respiratory-no cough, no wheezing, no shortness of breath Cardiac-no palpitations, no chest pain, no syncope GI-no nausea, vomiting, diarrhea, melena, hematochezia -no urinary retention, no urinary incontinence, no dysuria, no hematuria Musculoskeletal-right knee discomfort postoperatively as expected Skin-no bruising, no rashes, no pruritus Neuro-no isolated weakness, no paresthesia, no weakness Psych-no depression, no anxiety Physical Exam Physical Exam: General-alert and oriented x3, no fevers, no chills HEENT-head atraumatic and normocephalic, pupils equal and reactive to light, extraocular muscles intact Neck-no lymphadenopathy or thyromegaly, trachea midline Chest-clear to auscultation percussion. No rales wheezing or rhonchi Cardiac-regular rate and rhythm, normal S1 and S2 Abdomen-normal bowel sounds, nontender, no hepatosplenomegaly Extremities-right knee heavily bandaged postoperatively . Drain is in place at the time of my rounds. No peripheral edema Neuro-cranial nerves II through XII intact, motor and sensory function within normal limits, strength symmetrical , no focal deficits Psych-normal affect, normal mood Results & Data Results & Data Vital Signs (Past 12 Hours) Vital Signs Temp Pulse Pulse Resp BP Pulse Ox O2 Del Method 11/24/22 11:20 36.6 C 66 19 108/64 95 Room Air 11/24/22 07:35 76 107/61 11/24/22 06:40 36.4 C L 70 20 99/58 L 98 Room Air 11/24/22 03:40 36.6 C 60 18 128/77 96 Room Air Laboratory Results 11/24/22 06:13 11/24/22 06:13 PG Care Time/CCT Total # of Minutes Spent Total Time Spent with Patient: Total time spent is greater than 50% in coordination of care (as documented) at patient's floor/unit and/or counseling patient: Coding Level of Care Code 25826 SUB INP/OBS CARE 235MIN Diagnoses Infection of total left knee replacement T84.54XA Encounter type: initial encounter Arthritis of right knee M17.11 Hypertension I10 Hyperlipidemia E78.5 GERD (gastroesophageal reflux disease) K21.9 Depression F32.9 BPH (benign prostatic hyperplasia) N40.0 (1) Infection of total left knee replacement Encounter type: initial encounter Qualified Code(s): T84.54XA - Infection and inflammatory reaction due to internal left knee prosthesis, initial encounter
--- NOTE | 2022-11-29 14:09 | Discharge Summary ---
Date of Service November 29, 2022 Admission HPI Per Admitting Provider Harry is a 67 year old male who complains of right knee pain, presents for pre-op evaluation prior to a right total knee replacement by Dr Wade at [facility]. He complains of pain, decreased range of motion and stiffness in the right knee. He states that the symptoms have been chronic and non-traumatic and have gradually worsened. Currently the patient states that the symptoms are moderate- severe. The pain is described as aching, sharp and throbbing. His symptoms are aggravated by ascending stairs, daily activities, first steps while awake walking. Prior NSAIDs include IBU, Celebrex and Aleve. He has been treated with previous cortisone injection in the past without much relief. Admission Exam Per Admitting Provider Physical Exam: HT: 6ft 2in WT: 124.9kg Constitutional: WD/WN, vitals as above no acute distress Respiratory: normal respiratory effort, lungs clear to auscultation no respiratory distress, no labored breathing and does not use accessory muscles Cardiovascular: RRR, no murmur, no edema Gastrointestinal (Abdomen): normal bowel sounds, soft, nontender, no hepatosplenomegaly Musculoskeletal: Knee: + knee abnormal to inspection (RIGHT KNEE: ), + effusion (+1 effusion), + limited ROM of knee (ROM 0/3/110), + knee ROM with crepitation, + joint line tenderness (medial joint line) and + Adriano's sign positive; no deformity, no skin erythema, no ecchymosis, no valgus laxity, no varus laxity, anterior drawer test negative, Patria's sign negative and pivot shift test negative Principal Diagnosis Right Knee Osteoarthritis Discharge Data Allergies Allergy/AdvReac Type Severity Reaction Status Date / Time No Known Allergies Verified 11/23/22 08:18 Consultations 11/23/22 14:09 Consult Hospitalist Routine Procedures Performed Operation Date: 11/23/22 10:20 Actual Procedures p Right Total Knee Arthroplasty(Right) - Anand Wade DO Ordered Studies 11/23/22 05:00 US - OR guided needle placemen Routine Hospital Course (1) History of total right knee replacement: Patient:HARRY LAYNE Admit Date:11/23/22 MR#:[id number] Att Phy:Anand Wade,D.O. Acct ID:[id number] Shala Phy:Anujit. Anderson DO Date:1955 Fam Phy: Age:67 Location:3E Sex:M Room/Bed:[facility] cc: ~ *NOTICE TO RECEIVING [employer]/AGENCY This information is strictly Confidential and protected under [place] law. [place] law prohibits you from making any further disclosure of this information unless further disclosure is expressly permitted by the written consent of the person to whom it pertains or is authorized by law. A general authorization for the release of medical or other information is not sufficient for this purpose. Hospital accepts no responsibility if the information is made available to any other person, INCLUDING THE PATIENT. Date of Service November 24, 2022 Assessment & Plan (1) History of total right knee replacement: Plan: POD #1 s/p Right TKA pt/ot dvt proph with YASMEEN/SCD/ASA plan for d/c home with HHPT after PT today; medically stable per hospitalist for dc. Admission and Anticipated Discharge Date Admission Date: November 23, 2022 Subjective POD #1 s/p Right TKA Review of Systems Constitutional: no fever, no chills and no sweats Respiratory: no cough and no dyspnea Cardiovascular: no chest pain and no dyspnea Gastrointestinal: no abdominal pain, no nausea and no vomiting Physical Exam Physical Exam: Vital Signs Temp 36.4 C L 11/24/22 06:40 Pulse 70 11/24/22 06:40 Resp 20 11/24/22 06:40 BP 99/58 L 11/24/22 06:40 Pulse Ox 98 11/24/22 06:40 O2 Del Method Room Air 11/24/22 06:40 O2 Flow Rate 3 11/23/22 12:55 Intake & Output 11/23/22 11/23/22 11/24/22 06:59 18:59 06:59Intake Total 1122.5 / 2779.167 1656.667 / 2779.16 7 Output Total 875 / 880 Balance 1117.5 / 1899.167 781.667 / 1899.167 Weight 123.9 kg Intake: IV 272.5 / 1179.167 906.667 / 1179.167 Lactated Ringe r's 1,000 ml @ 15 0 / 0 mls/hr IV .Q24 H [facility]CTOR Rx#: [id number] Sodium Chlorid e 0.9% 1000ML 1, 906.667 / 906.667 000 ml @ 100 m ls/hr IV .Q10H VÍCTOR Rx#:[id number] Tranexamic Aci d / 0.7% NaCl 1, 200 / 200 000 mg In 100 ml @ 600 mls/hr IV TODAY@0600 VÍCTOR Rx#:[id number] ceFAZolin 3000 MG 72.5 ml @ 130 72.5 / 72.5 mls/hr IV PREO P VÍCTOR Rx#: [id number] IV Perioperative 850 / 850 Oral 750 / 750 Output: Urine 400 / 400 Estimated Blood Loss 5 / 5 Drain Output 475 / 475 Right Knee Hem ovac 475 / 475 Other: # Unmeasured Voi ds 1 Weight Measureme nt Method Standing Scale Musculoskeletal: Right Leg: NVDI, calf SNT, negative jesse sign. DP palpable, able to wiggle toes/ankle movement without difficulty. dressing clean dry and intact. Results & Data Vital Signs (Past 12 Hours) Vital Signs Temp Pulse Pulse Resp BP Pulse Ox O2 Del Method 11/24/22 06:40 36.4 C L 70 20 99/58 L 98 Room Air 11/24/22 03:40 36.6 C 60 18 128/77 96 Room Air 11/23/22 23:45 36.4 C L 62 16 103/64 94 Room Air 11/23/22 19:10 36.4 C L 61 16B 117/62 95 Room Air Laboratory Results Laboratory Results POC Glucose 73 mg/dl (70-99) 11/23/22 09:00 SARS-CoV-2, RNA, NAAT NEGATIVE (NEGATIVE) 11/23/22 Unknown Impressions Knee X-Ray 11/23/22 12:58 RIGHT KNEE 2 VIEWS History: Right total knee arthroplasty. Degenerative arthritis. Postop. FINDINGS: The patient is status post a right total knee arthroplasty. The hardware is intact. No fracture or dislocation. Surgical drains are in place. IMPRESSION: Right total knee arthroplasty. No evidence for hardware complication. ACT 112: Negative or not required by law. Electronically signed by: Nj Pardo M.D. 11/23/2022 2:18 PM Signed By: <Electronically signed by Sergei Hartman PA-C> 11/24/22 0659 <Electronically signed by Anand Wade DO> 11/29/22 0658 Created:11/24/22 0658 Total Time Total Time Spent Total Time Spent (In Minutes): 5 Discharge Plan Discharge Items Patient Disposition: Home - Home Health Services Reason For Visit: Osteoarthritis Knee Right Discharge Diagnosis: Right Knee Osteoarthritis Activity: Per Instructions section Weightbearing Comment: as tolerated with walker Non-emergency contact: Surgeon Call non-emergency contact if: you have any medication questions, your pain is not controlled, your temperature is above 101.5, your wound has increased redness and your wound has increased drainage Follow-up/Referrals: Anand Wade DO [Surgeon] - (Follow up with Dr Wade or his PA in 2 weeks from the day of surgery for your first post operative visit) Chalo Anderson DO [Primary Care Provider] - Diet: Regular Addtl Attending Provider Instructions: ACTIVITY RECOMMENDATIONS: SELF CARE INSTRUCTIONS AFTER TOTAL KNEE REPLACEMENT A. You may need to continue a physical therapy program after discharge from the hospital. There are several options available to you. Your doctor will assist you in selecting the best one for you. 1. An out-patient facility 2 to 3 times a week for therapy or home therapy. 2. Continue working on all exercises taught to you in the hospital. Your goals should be to increase bending of your knee to 90 degrees and beyond and to fully straighten your knee. B. You may progress at your own pace from walking with a walker or crutches to a cane; then to no assistive devices. C. Make walking a part of your daily routine. Be up as much as comfortable with rest periods throughout the day. Rest with leg elevation is very important. Use the ice wrap frequently for the first 3-4 weeks. D. There are no restrictions on activities. 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 E. Wear the long elastic stockings (YASMEEN hose) 20 hours a day for 2 weeks after surgery. They can be removed several times a day for laundering and for a bath. F. You may shower, no tub baths until cleared by your doctor. SPECIAL CARE INSTRUCTIONS: VERY IMPORTANT TO READ AND REVIEW A. There are a few signs you need to watch for after you are home. Call [facility] if you notice any of the followin. Increased severe knee pain. Some pain is expected especially when you exercise. 2. Increased swelling in your leg or knee; pain or swelling of the calf muscle in either lower leg. 3. Any fluid drainage from the incision. 4. Shortness of breath or chest pain. B. Please call [facility] at if you have any concerns or questions about your operation or recovery. The doctor or his nurse will return your call promptly. C. You must take antibiotics before dental work, bladder, bowel or other surgery. Your doctor will provide you with a permanent care to carry describing this precaution. IMPORTANT: * REMEMBER TO TAKE ASPIRIN, 81 MG, TWICE DAILY FOR 4 WEEKS UNLESS OTHERWISE DI RECTED. THIS IS YOUR BLOOD THINNER. * HIGH RISK PATIENTS MAY BE PRESCRIBED A STRONGER BLOOD THINNER. THIS WILL BE PROVIDED AT DISCHARGE. * CALL IF INCREASED PAIN, REDNESS, DRAINAGE OR FEVER GREATER THAT 101. * WEAR YASMEEN HOSE 20 HOURS PER DAY FOR 2 WEEKS. * OLIVIA Dressing - This is a large suction dressing covering your incision. This will help pull any excess drainage from the wound and allow your incision to heal properly. You may shower with this if you can keep the unit outside of the shower. If any bleeding or leakage is noted please call your doctor's offic e. This will remain on your incision for 7 days and then should be removed. This can be done yourself or by the home nursing staff if applicable. The entire unit is disposable once removed. Once removed, follow thesed wound care instructions. DERMABOND Prineo- This is a mesh tape dressing that is covered with glue. It should remain in place until the incision is properly healed, usually 10-14 days. This dressing is designed to naturally slough off. You may trim the excess mesh tape as it peels off. Incision may be briefly wet in a shower. Dry immediately by blotting with a clean, dry towel. Do not bath or swim until instructed by your doctor. Do not scratch, rub, or pick at the dressing. Do not apply any topical ointments or lotions until dressing is completely removed and/or instructed by your doctor. There may be a small piece of suture material at one end of your incision. Do not pull or trim this. If it is bothersome or catching on clothing, you may cover it with a band-aid. If redness or drainage is noted, please call your surgeon. . FOLLOW UP VISIT: If appointment is not already scheduled: Please call [facility] to make a follow-up appointment for 2 weeks after your surgery at . Pending Studies at Discharge: No Stand-Alone Forms: [facility], Pain - Opioid Pain Management, Smoking Cessation Medications and DC Order Prescriptions: New acetaminophen [Tylenol Extra Strength] 500 mg Tablet 1,000 mg PO Q8 21 Days Qty: 126 0RF aspirin 81 mg Tablet,Delayed Release (Dr/Ec) 81 mg PO BID 30 Days Qty: 60 0RF celecoxib [Celebrex] 200 mg Capsule 200 mg PO BID 30 Days Qty: 60 0RF oxycodone 5 mg Tablet 5 - 10 mg PO Q6H PRN (Reason: pain) Qty: 30 0RF Rx Instructions: ongoing therapy, supervising dr daniela wade. max 6 tabs in 24 hours docusate sodium 100 mg Capsule 100 mg PO BID 10 Days Qty: 20 0RF Continued propranolol 80 mg Tablet 80 mg PO QAM atorvastatin 20 mg Tablet 20 mg PO QPM tamsulosin 0.4 mg Capsule 0.4 mg PO QAM trazodone 100 mg Tablet 150 mg PO HS pantoprazole [Protonix] 40 mg Tablet,Delayed Release (Dr/Ec) 40 mg PO QPM buspirone 30 mg Tablet 30 mg PO BID bumetanide 0.5 mg Tablet 0.5 mg PO BID montelukast 10 mg Tablet 10 mg PO HS allopurinol 300 mg Tablet 300 mg PO QAM lisinopril 5 mg Tablet 5 mg PO QAM duloxetine 60 mg Capsule,Delayed Release(Dr/Ec) 60 mg PO BID levocetirizine 5 mg Tablet 5 mg PO QAM cyanocobalamin (vitamin B-12) [Vitamin B-12] 100 mcg Tablet 100 mcg PO QAM gabapentin 100 mg Capsule 100 mg PO TID celecoxib [Celebrex] 100 mg Capsule 100 mg PO BID cholecalciferol (vitamin D3) [Vitamin D3] 125 mcg (5,000 unit) Tablet 125 mcg PO QAM cefadroxil 500 mg capsule 500 mg PO QAM Krames/Other Patient Handouts: DVT Post Op Prevention Admission Data Admit Date/Time: 11/23/22 12:58 Attending Provider: Anand Wade Admit Provider: Anand Wade Primary Care Provider: Chalo Anderson Other Providers: Anand Cardoza ; Ludin Vásquez Other Interventions: Discharge Summary Assessment (RN) Last Done: 11/24/22 10:39
== END 2022-11-24 14:53 | disposition home health service (06) ==
LOC: ASU 07:29 → 3E 07:29